=== PATIENT | female | born 1960 | race Caucasian/White ===

== ENCOUNTER 2017-12-26 09:00 | Emergency (ER) | payer BC ==
[2017-12-26] MEDS ORDERED: Sodium Chloride 0.9% 10 ML Syringe FLUSH PRN (09:45)
[2017-12-26] MEDS ORDERED: Ondansetron 4 MG/2 ML SDV IVPUSH ONE (09:46)
[2017-12-26] MEDS ORDERED: Acetaminophen 325 MG Tab PO ONE (09:46)
[2017-12-26] MEDS ORDERED: Ketorolac 30 MG/ML SDV IVPUSH SCH (10:00)
--- NOTE | 2017-12-26 10:13 | CT ---
Head CT Technique: Multiple axial sections through the brain were obtained. Intravenous contrast was not utilized. Comparison: No previous intracranial imaging. Findings: Ventricles along with basal cisterns and sulci over the convexities are within normal limits for the patient's age. No abnormal parenchymal densities are seen. No evidence of intracranial hemorrhage. No midline shift or mass effect is seen. Bone window settings were reviewed which shows the visualized sinuses to appear clear. No acute calvarial abnormality is seen. Impression: 1. Nothing acute is seen on noncontrast head CT study. Diagnostic code #1
--- NOTE | 2017-12-26 10:23 | EDM.PDOC ---
ED HPI GENERAL MEDICAL PROBLEM - General Chief Complaint: Head Injury Stated Complaint: CONCUSSION FOLLOW-UP Time Seen by Provider: 12/26/17 09:34 Source of Information: Reports: Patient, RN Notes Reviewed - History of Present Illness INITIAL COMMENTS - FREE TEXT/NARRATIVE: 57-year-old lady and fell striking the back of her head days ago moving furniture. Is going down some steps at that time. She states her knee gave out and she fell backwards and hit her head hard against a hard concrete step. As no LOC but she felt that she was "dazed briefly. She has had quite severe headache since the injury. She was seen at the walk-in clinic 2 days ago treated with 2 or 3 meds which made her drowsy, helped her rest and sleep after the meds have worn off she has continued with moderately severe generalized headache. Was had some nausea but no vomiting. Those dizzy in a nonspecific way. Like her vision is blurry and she feels like her brain is "foggy". No numbness tingling or weakness. No speech difficulty. - Related Data Allergies Allergy/AdvReac Type Severity Reaction Status Date / Time Penicillins Allergy Hives Verified 12/26/17 09:05 Home Meds: Home Meds Amoxicillin 1 cap PO TID 12/26/17 [History] Benzonatate 1 cap PO TID PRN 12/26/17 [History] Divalproex Sodium 2 tab PO BEDTIME 12/26/17 [History] Doxycycline [Vibramycin] 1 tab PO DAILY 12/26/17 [History] Hydrocodone/Acetaminophen [Hydrocodon-Acetaminophen 5-325] 1 - 2 tab PO Q4HR PRN 12/26/17 [History] Meloxicam [Mobic] 1 tab PO DAILY 12/26/17 [History] Ondansetron [Zofran ODT] 1 tab SL TID PRN 12/26/17 [History] Ondansetron [Zofran ODT] 4 mg PO Q8HR PRN #10 tab.dis 12/26/17 [Rx] Prochlorperazine [Compazine] 1 - 2 tab PO TID PRN 12/26/17 [History] buPROPion [Wellbutrin SR] 2 tab PO DAILY 12/26/17 [History] Past Medical History Gastrointestinal History: Reports: GERD, Irritable Bowel Syndrome, Other (See Below) Other Gastrointestinal History: Colitis 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 Musculoskeletal History: Reports: Arthritis, Osteoarthritis Neurological History: Reports: Concussion, Migraines Psychiatric History: Reports: Depression - Past Surgical History HEENT Surgical History: Reports: Naso-Sinus Surgery, Tonsillectomy GI Surgical History: Reports: Bariatric Procedure, Cholecystectomy Musculoskeletal Surgical History: Reports: Arthroscopic Knee, Arthroscopic Procedure Other Musculoskeletal Surgeries/Procedures:: Bilateral ACL Social & Family History - Tobacco Use Smoking Status *Q: Current Every Day Smoker Years of Tobacco use: 30 Packs/Tins Daily: 0.5 Used Tobacco, but Quit: No Second Hand Smoke Exposure: No - Caffeine Use Caffeine Use: Reports: Coffee - Recreational Drug Use Recreational Drug Use: No ED ROS GENERAL - Review of Systems Review Of Systems: See Below Constitutional: Denies: Fever, Chills, Diaphoresis HEENT: Denies: Sinus Problem, Throat Pain Respiratory: Denies: Shortness of Breath Cardiovascular: Denies: Chest Pain GI/Abdominal: Reports: Decreased Appetite, Nausea. Denies: Abdominal Pain, Diarrhea, Vomiting Musculoskeletal: Reports: Neck Pain (Minimal soreness posterior neck). Denies: Arm Pain, Back Pain, Leg Pain, Joint Pain Skin: Reports: No Symptoms Neurological: Reports: Dizziness, Headache. Denies: Numbness, Tingling, Trouble Speaking, Difficulty Walking, Weakness ED EXAM, HEAD INJURY - Physical Exam Exam: See Below General Appearance: Alert, Moderate Distress Head: Atraumatic, Other Eyes: Bilateral Eye: PERRL Ears: Normal External Exam, Normal Canal Nose: Normal Inspection Throat/Mouth: Normal Inspection Neck: Non-Tender Respiratory: No Respiratory Distress, Lungs Clear, Normal Breath Sounds Cardiovascular: Regular Rate, Rhythm GI/Abdominal Exam: Soft, Non-Tender Back Exam: Normal Inspection Extremities: Normal Inspection, Normal Range of Motion. No: Leg Pain Neurologic: No Motor/Sensory Deficits, Normal Mood/Affect, Other (Finger-to- nose testing normal) Course - Vital Signs Last Recorded V/S: Last Vital Signs Temp 97.1 F 12/26/17 09:24 Pulse 78 12/26/17 09:24 Resp 20 12/26/17 09:24 BP 160/82 H 12/26/17 09:24 Pulse Ox 99 12/26/17 09:24 - Orders/Labs/Meds Orders: Active Orders 24 hr Category Date Time Status Peripheral IV Care [RC] . DIRECTED Care 12/26/17 09:46 Active Peripheral IV Insertion Adult [OM.PC] Stat Oth 12/26/17 09:45 Ordered Meds: Medications Discontinued Medications Generic Name Dose Route Start Last Admin Trade Name Freq PRN Reason Stop Dose Admin Acetaminophen 975 mg 12/26/17 09:46 12/26/17 10:17 Tylenol PO 12/26/17 09:47 975 mg NOW ONE Administration Ketorolac Tromethamine 30 mg 12/26/17 10:00 12/26/17 10:16 Toradol IVPUSH 30 mg ONETIME ROBERT Administration Ondansetron HCl 4 mg 12/26/17 09:46 12/26/17 10:16 Zofran IVPUSH 12/26/17 09:47 4 mg ONETIME ONE Administration Sodium Chloride 10 ml 12/26/17 09:45 12/26/17 10:20 Saline Flush FLUSH 10 ml ASDIRECTED PRN Administration Keep Vein Open Departure - Departure Time of Disposition: 10:54 Disposition: Home, Self-Care 01 Condition: Fair Clinical Impression: Concussion injury of brain Migraine headache Qualifiers: Migraine type: unspecified Status migrainosus presence: without status migrainosus Intractability: not intractable Qualified Code(s): G43.909 - Migraine, unspecified, not intractable, without status migrainosus - Discharge Information Prescriptions: Ondansetron [Zofran ODT] 4 mg PO Q8HR PRN #10 tab.dis PRN Reason: Nausea/Vomiting Instructions: Concussion, Adult, [id number], Migraine Headache Referrals: Toya Obregon MD [Primary Care Provider] - Forms: ED Department Discharge, ED Return to Work/School Form Additional Instructions: Rest, increase activity slowly as tolerated, Zofran if needed for further nausea or vomiting, you may take Tylenol 2-3 times daily if needed for further headache, you may continue to take Darvocet daily as previously prescribed. Follow-up clinic if not much better within 3-5 days as expected. - My Orders Last 24 Hours: My Active Orders 12/26/17 09:45 Peripheral IV Insertion Adult [OM.PC] Stat 12/26/17 09:46 Peripheral IV Care [RC] . DIRECTED - Assessment/Plan Last 24 Hours: My Active Orders 12/26/17 09:45 Peripheral IV Insertion Adult [OM.PC] Stat 12/26/17 09:46 Peripheral IV Care [RC] . DIRECTED
== END 2017-12-26 11:05 | disposition home or self-care (01) ==
LOC: JD.ED 09:00
DX: S06.0X0A Concussion without loss of consciousness, initial encounter (principal); G43.909 Migraine, unspecified, not intractable, without status migrainosus; F17.210 Nicotine dependence, cigarettes, uncomplicated; W10.9XXA Fall (on) (from) unspecified stairs and steps, initial encounter; Z88.0 Allergy status to penicillin; Z79.899 Other long term (current) drug therapy
CPT/HCPCS: 70450; 96374; 96375; 99284; A9270; J1885; J2405; J7050

== ENCOUNTER 2018-05-28 07:31 | Day surgery (SDC) | payer BC ==
[~2018-05-28 07:31] MED LIST: Lactated Ringers 1,000 ML IV SCH; Lidocaine 1%/Sod Bicarbonate in NS 8.4% 1 ML Syringe IDERM PRN; Sodium Chloride 0.9% 10 ML Syringe FLUSH PRN
--- NOTE | 2018-05-28 08:29 | PCM.PREANE ---
Preanesthetic Assessment - Anesthesia/Transfusion/Family Hx Anesthesia History: Prior Anesthesia Without Reaction Family History of Anesthesia Reaction: No Transfusion History: Prior Transfusion Without Reaction Intubation History: Unknown - Review of Systems General: No Symptoms Pulmonary: No Symptoms Cardiovascular: No Symptoms Gastrointestinal: Nausea (Chronic nausea, history of gastric bypass, GERD. Prefers to have a scopalamine patch for her procedure. ) Neurological: No Symptoms Other: Reports: None (Panic Disorder), Depression, Anxiety - Physical Assessment NPO Status Date: 05/27/17 NPO Status Time: 21:30 O2 Sat by Pulse Oximetry: 97 Respiratory Rate: 16 Vital Signs: Last Vital Signs Temp 36.7 C 05/28/18 07:45 Pulse 77 05/28/18 07:45 Resp 16 05/28/18 07:45 BP 159/77 H 05/28/18 07:45 Pulse Ox 97 05/28/18 07:45 Weight: 65.771 kg ASA Class: 2 Mental Status: Alert & Oriented x3 Airway Class: Mallampati = 1 Dentition: Reports: Normal Dentition Thyro-Mental Finger Breadths: 2 Mouth Opening Finger Breadths: 3 ROM/Head Extension: Full Lungs: Clear to Auscultation, Normal Respiratory Effort Cardiovascular: Regular Rate, Regular Rhythm - Allergies Allergies/Adverse Reactions: Allergies Allergy/AdvReac Type Severity Reaction Status Date / Time morphine Allergy Rash Verified 03/28/18 15:51 Penicillins Allergy Hives Verified 03/28/18 15:51 - Anesthesia Plan Pre-Op Medication Ordered: Other (Scopalamine Patch) - Acknowledgements Anesthesia Type Planned: MAC Pt an Appropriate Candidate for the Planned Anesthesia: Yes Alternatives and Risks of Anesthesia Discussed w Pt/Guardian: Yes Pt/Guardian Understands and Agrees with Anesthesia Plan: Yes PreAnesthesia Questionnaire HEENT History: Reports: Allergic Rhinitis, Impaired Vision Cardiovascular History: Reports: None Respiratory History: Reports: Asthma Gastrointestinal History: Reports: GERD, Irritable Bowel Syndrome, Other (See Below) Other Gastrointestinal History: Colitis Genitourinary History: Reports: None 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 Other OB/BYN History: Hysterectomy Musculoskeletal History: Reports: Arthritis, Osteoarthritis Neurological History: Reports: Concussion, Migraines Psychiatric History: Reports: Depression Endocrine/Metabolic History: Reports: None Hematologic History: Reports: None Immunologic History: Reports: None Oncologic (Cancer) History: Reports: None Dermatologic History: Reports: None - Past Surgical History Head Surgeries/Procedures: Reports: None HEENT Surgical History: Reports: Naso-Sinus Surgery, Tonsillectomy Cardiovascular Surgical History: Reports: None Respiratory Surgical History: Reports: None GI Surgical History: Reports: Bariatric Procedure, Cholecystectomy, Colonoscopy Female Surgical History: Reports: Hysterectomy, Oophorectomy Endocrine Surgical History: Reports: None Musculoskeletal Surgical History: Reports: Arthroscopic Knee, Arthroscopic Procedure Other Musculoskeletal Surgeries/Procedures:: Bilateral ACL Dermatological Surgical History: Reports: None - HOME MEDS Home Medications: Home Meds Divalproex Sodium 1,000 mg PO DAILY 12/26/17 [History] Doxycycline [Vibramycin] 100 mg PO DAILY 12/26/17 [History] buPROPion [Wellbutrin SR] 150 mg PO DAILY 12/26/17 [History] Cholecalciferol (Vitamin D3) [Vitamin D3] 5,000 unit PO DAILY 03/28/18 [History] Dicyclomine [Bentyl] 20 mg PO QID 03/28/18 [History] Lactobacillus Combination No.4 [Probiotic] 1 cap PO DAILY 03/28/18 [History] Loratadine/Pseudoephedrine [Claritin-D 12 Hour] 1 tab PO DAILY 03/28/18 [History ] Magnesium 500 mg PO DAILY 03/28/18 [History] Multivitamin [Zoo Chews] 1 tab PO DAILY 03/28/18 [History] Bisacodyl [Dulcolax] 5 mg PO DAILY PRN tablet 03/31/18 [Rx] Cyclobenzaprine [Flexeril] 10 mg PO TID PRN #40 tablet 03/31/18 [Rx] Docusate Sodium [Colace] 100 mg PO BID cap 03/31/18 [Rx] Omeprazole 20 mg PO BEDTIME 03/31/18 [History] Acetaminophen/HYDROcodone [[place] 325-5 MG] 1 - 2 tab PO Q6H PRN #40 tablet 05/28 [Rx] FLUoxetine HCl [Prozac] 20 mg PO DAILY 05/28/18 [History] Meloxicam 15 mg PO DAILY 05/28/18 [History] buPROPion [buPROPion XL] 300 mg PO DAILY 05/28/18 [History] - CURRENT (IN HOUSE) MEDS Current Meds: Current Medications Lactated Ringer's (Ringers, Lactated) 1,000 mls @ 125 mls/hr IV ASDIRECTED ROBERT Stop: 05/28/18 23:00 Lidocaine/Sodium Bicarbonate (Buffered Lidocaine 1% In Ns 8.4%) 0.25 ml IDERM ONETIME PRN PRN Reason: Prior to IV Start Stop: 05/28/18 18:00 Sodium Chloride (Saline Flush) 10 ml FLUSH ASDIRECTED PRN PRN Reason: Keep Vein Open Stop: 05/28/18 18:00
[2018-05-28] MEDS ORDERED: fentaNYL 100 MCG/2 ML SDV ONE (08:42)
[2018-05-28] MEDS ORDERED: Propofol 200 MG/20 ML SDV ONE (08:42)
[2018-05-28] MEDS ORDERED: Lidocaine 1% 4 ML ONE (08:42)
[2018-05-28] MEDS ORDERED: Ondansetron 4 MG/2 ML SDV ONE (08:42)
[2018-05-28] MEDS ORDERED: Midazolam 1 MG/ML 2 ML SDV ONE (08:42)
[2018-05-28] MEDS ORDERED: Ketamine 500 mg/10 ML MDV ONE (08:43)
[2018-05-28] MEDS ORDERED: HYDROmorphone 0.5 MG/0.5 ML Syringe ONE (08:43)
[2018-05-28] MEDS ORDERED: Scopolamine 1.5 MG Transdermal Patch TOP ONE (08:45)
[2018-05-28] MEDS ORDERED: Dexamethasone 4 MG/ML 5 ML MDV ONE (08:47)
[2018-05-28] MEDS ORDERED: Acetaminophen/HYDROcodone 325-5 MG Tab PO SCH (10:28)
--- NOTE | 2018-05-28 11:19 | PCM48HPAN ---
Post Anesthesia Note - EVALUATION WITHIN 48HRS OF ANESTHETIC Vital Signs in Normal Range: Yes Patient Participated in Evaluation: Yes Respiratory Function Stable: Yes Airway Patent: Yes Cardiovascular Function Stable: Yes Hydration Status Stable: Yes Pain Control Satisfactory: Yes Nausea and Vomiting Control Satisfactory: Yes Mental Status Recovered: Yes
--- NOTE | 2018-06-02 07:00 | PCM.OPNOTE ---
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
--- NOTE | 2018-06-02 08:05 | OR ---
DATE OF OPERATION: 05/28/2018 SURGEON: Diogo Patel MD OPERATION PERFORMED: Left total knee manipulation under anesthesia. PREOPERATIVE DIAGNOSIS: Left total knee arthrofibrosis. POSTOPERATIVE DIAGNOSIS: Left total knee arthrofibrosis. ANESTHESIA: MAC sedation. ANESTHESIA PROVIDER: Wei Fried. ROOM SERVER: None. ESTIMATED BLOOD LOSS: Not applicable. COMPLICATIONS: None. CONDITION: Stable. DESCRIPTION OF PROCEDURE: The patient was identified in the preoperative holding area. Proper site was marked and identified by the surgeon. The patient was taken back to the operating theater, where after adequate anesthesia, the patient's left lower extremity had pre-manipulation motion measured. Range of motion was 2 to about 90 degrees. At this time, manipulation was done. There was noted to be significant arthrofibrosis, and the patient had 0 to 130 degrees of flexion, was stable throughout range of motion, and there was no instability noted. At this time, the patient was sent to the PACU in a stable condition and will begin physical therapy tomorrow. MMODAL /[id number]
== END 2018-05-28 11:30 | disposition home or self-care (01) ==
LOC: JD.SDS 07:31
PROVIDERS: ATTEND Orthopaedic Surgery
DX: M24.662 Ankylosis, left knee (principal); J30.9 Allergic rhinitis, unspecified; F32.9 Major depressive disorder, single episode, unspecified; K21.9 Gastro-esophageal reflux disease without esophagitis; K58.9 Irritable bowel syndrome, unspecified; G43.909 Migraine, unspecified, not intractable, without status migrainosus; M06.9 Rheumatoid arthritis, unspecified; F17.210 Nicotine dependence, cigarettes, uncomplicated; Z88.0 Allergy status to penicillin; Z88.5 Allergy status to narcotic agent; Z79.899 Other long term (current) drug therapy; Z79.2 Long term (current) use of antibiotics
CPT/HCPCS: 27570; A9270; J1100; J1170; J2250; J2405; J2704; J3010; J7120; 01380; J2001

== ENCOUNTER 2018-08-04 07:30 | Inpatient (IN) | payer BC ==
[~2018-08-04 07:30] MED LIST changes: +Acetaminophen 325 MG Tab PO SCH; +Morphine 2 MG/ML Syringe IVPUSH PRN; +Pregabalin 25 MG Cap PO SCH; +oxyCODONE ER 10 MG TAB.ER PO SCH
[2018-08-04] MEDS ORDERED: Ropivacaine 0.5% 5 MG/ML 30 ML SDV ONE (07:53)
[2018-08-04] MEDS ORDERED: EPINEPHrine 1 MG/ML SDV ONE (07:53)
[2018-08-04] MEDS ORDERED: ceFAZolin 1 GM Vial ONE ×2 (09:59→10:57)
[2018-08-04] MEDS ORDERED: Vancomycin 1 GM SDV ONE (09:59)
[2018-08-04] MEDS ORDERED: Bupivacaine 0.25% 30 ML SDV ONE (10:00)
[2018-08-04] MEDS ORDERED: Iodine/Sodium Iodide 2% Tincture 30 ML Bottle ONE (10:00)
[2018-08-04] MEDS ORDERED: Propofol 200 MG/20 ML SDV ONE (10:55)
[2018-08-04] MEDS ORDERED: Midazolam 1 MG/ML 2 ML SDV ONE (10:57)
[2018-08-04] MEDS ORDERED: fentaNYL 100 MCG/2 ML SDV ONE (10:57)
--- NOTE | 2018-08-04 10:58 | PCM.PREANE ---
Preanesthetic Assessment - Anesthesia/Transfusion/Family Hx Anesthesia History: Prior Anesthesia Reaction Type of Anesthesia Reaction: Excessive Nausea/Vomiting Family History of Anesthesia Reaction: No Transfusion History: No Prior Transfusion(s) Intubation History: Unknown - Review of Systems General: No Symptoms Pulmonary: No Symptoms (Smoker 0.5 ppd for 20 years, denies cough. ) Cardiovascular: No Symptoms (Negative stress test 03/06/2018. Inferior Q waves noted on EKG. Denies Chest Pain. ) Gastrointestinal: No Symptoms (Gastric Bypass Surgery) Neurological: Headache (Migraines) Other: Reports: Sinus Problem (Allergic Rhinitis), Depression - Physical Assessment NPO Status Date: 08/04/18 NPO Status Time: 00:00 O2 Sat by Pulse Oximetry: 97 Respiratory Rate: 16 Vital Signs: Last Vital Signs Temp 36.3 C 08/04/18 09:55 Pulse 66 08/04/18 09:55 Resp 16 08/04/18 09:55 BP 133/74 08/04/18 09:55 Pulse Ox 97 08/04/18 09:55 Height: 1.6 m Weight: 68.946 kg ASA Class: 2 Mental Status: Alert & Oriented x3 Airway Class: Mallampati = 1 Dentition: Reports: Normal Dentition Thyro-Mental Finger Breadths: 2 Mouth Opening Finger Breadths: 3 ROM/Head Extension: Full Lungs: Clear to Auscultation, Normal Respiratory Effort, Decreased Breath Sounds Cardiovascular: Regular Rate, Regular Rhythm - Allergies Allergies/Adverse Reactions: Allergies Allergy/AdvReac Type Severity Reaction Status Date / Time morphine Allergy Rash Verified 08/04/18 10:18 Penicillins Allergy Hives Verified 08/04/18 10:18 - Anesthesia Plan Pre-Op Medication Ordered: Other (Scopalamine Patch) - Acknowledgements Anesthesia Type Planned: Spinal, Regional Block Pt an Appropriate Candidate for the Planned Anesthesia: Yes Alternatives and Risks of Anesthesia Discussed w Pt/Guardian: Yes Pt/Guardian Understands and Agrees with Anesthesia Plan: Yes PreAnesthesia Questionnaire HEENT History: Reports: Allergic Rhinitis, Impaired Vision Cardiovascular History: Reports: None, Other (See Below) Other Cardiovascular History: Abnormal EKG Respiratory History: Reports: Asthma Gastrointestinal History: Reports: GERD, Irritable Bowel Syndrome, Other (See Below) Other Gastrointestinal History: Colitis Genitourinary History: Reports: None 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 Musculoskeletal History: Reports: Arthritis, Osteoarthritis Neurological History: Reports: Concussion, Migraines Psychiatric History: Reports: Depression Endocrine/Metabolic History: Reports: None Hematologic History: Reports: None Immunologic History: Reports: None Oncologic (Cancer) History: Reports: None Dermatologic History: Other Dermatologic History: Acne, perirectal abscess - Past Surgical History Head Surgeries/Procedures: Reports: None HEENT Surgical History: Reports: Naso-Sinus Surgery, Tonsillectomy Cardiovascular Surgical History: Reports: None Respiratory Surgical History: Reports: None GI Surgical History: Reports: Bariatric Procedure, Cholecystectomy, Colonoscopy Female Surgical History: Reports: Hysterectomy, Oophorectomy Male Surgical History: Endocrine Surgical History: Reports: None Neurological Surgical History: Reports: None Musculoskeletal Surgical History: Reports: Arthroscopic Knee, Arthroscopic Procedure, Knee Replacement Other Musculoskeletal Surgeries/Procedures:: Bilateral ACL, Left total knee replacement Oncologic Surgical History: Reports: None Dermatological Surgical History: Reports: Other (See Below) - SUBSTANCE USE Smoking Status *Q: Current Every Day Smoker Tobacco Use Within Last Twelve Months: Cigarettes Recreational Drug Use History: No - HOME MEDS Home Medications: Home Meds Divalproex Sodium 500 mg PO DAILY 12/26/17 [History] Doxycycline [Vibramycin] 100 mg PO DAILY 12/26/17 [History] buPROPion [Wellbutrin SR] 150 mg PO DAILY 12/26/17 [History] Cholecalciferol (Vitamin D3) [Vitamin D3] 5,000 unit PO DAILY 03/28/18 [History] Dicyclomine [Bentyl] 20 mg PO QID PRN 03/28/18 [History] Loratadine/Pseudoephedrine [Claritin-D 12 Hour] 1 tab PO DAILY 03/28/18 [History ] Magnesium 500 mg PO DAILY 03/28/18 [History] Multivitamin [Zoo Chews] 1 tab PO DAILY 03/28/18 [History] Cyclobenzaprine [Flexeril] 10 mg PO TID PRN #40 tablet 03/31/18 [Rx] Omeprazole 20 mg PO DAILY 03/31/18 [History] FLUoxetine HCl [Prozac] 20 mg PO DAILY 05/28/18 [History] Meloxicam 15 mg PO DAILY 05/28/18 [History] buPROPion [buPROPion XL] 300 mg PO DAILY 05/28/18 [History] Ondansetron [Zofran] 4 mg PO Q8H PRN 08/01/18 [History] - CURRENT (IN HOUSE) MEDS Current Meds: Current Medications Acetaminophen (Tylenol) 975 mg PO ONETIME [facility] Stop: 08/04/18 12:00 Last Admin: 08/04/18 10:27 Dose: 975 mg Bisacodyl (Dulcolax) 5 mg PO DAILY PRN PRN Reason: Constipation Morphine Sulfate 8 mg/Epinephrine HCl 0.3 mg/Cefuroxime Sodium 750 mg/Ketorolac Tromethamine 30 mg/Sodium Chloride 27.9 ml 0 mg .XX ONETIME ONE Stop: 08/04/18 12:01 Cyclobenzaprine HCl (Flexeril) 10 mg PO TID PRN PRN Reason: Spasms Docusate Sodium (Colace) 100 mg PO BID [facility] Lactated Ringer's (Ringers, Lactated) 1,000 mls @ 125 mls/hr IV ASDIRECTED [facility] Stop: 08/04/18 23:00 Last Admin: 08/04/18 10:10 Dose: 125 mls/hr Cefazolin Sodium/Dextrose 2 gm (/ Premix) 50 mls @ 100 mls/hr IV Q8H [facility] Stop: 08/04/18 23:14 Ketorolac Tromethamine (Toradol) 15 mg IVPUSH Q6H PRN PRN Reason: Pain Lidocaine/Sodium Bicarbonate (Buffered Lidocaine 1% In Ns 8.4%) 0.25 ml IDERM ONETIME PRN PRN Reason: Prior to IV Start Stop: 08/04/18 18:00 Last Admin: 08/04/18 10:10 Dose: 0.25 ml Magnesium Hydroxide (Milk Of Magnesia) 30 ml PO BID PRN PRN Reason: Constipation Morphine Sulfate (Morphine) 2 mg IVPUSH Q2H PRN PRN Reason: Breakthrough Pain Naloxone HCl (Narcan) 0.1 mg IVPUSH Q5M PRN PRN Reason: Oversedation Ondansetron HCl (Zofran) 4 mg IVPUSH Q6H PRN PRN Reason: Nausea/Vomiting Oxycodone HCl (Oxycontin) 10 mg PO ONETIME [facility] Stop: 08/04/18 12:00 Last Admin: 08/04/18 10:27 Dose: 10 mg Oxycodone/Acetaminophen (Percocet 325-5 Mg) 1 - 2 tab PO Q4H PRN PRN Reason: Pain Pregabalin (Lyrica) 50 mg PO ONETIME [facility] Stop: 08/04/18 12:00 Last Admin: 08/04/18 10:27 Dose: 50 mg Rivaroxaban (Xarelto) 10 mg PO DAILY [facility] Scopolamine (Transderm-Scop) 1.5 mg TRDERM ONETIME [facility] Last Admin: 08/04/18 10:27 Dose: 1.5 mg Senna (Senna) 8.6 mg PO BID PRN PRN Reason: Constipation Sodium Chloride (Saline Flush) 10 ml FLUSH ASDIRECTED PRN PRN Reason: Keep Vein Open Stop: 08/04/18 18:00 Discontinued Medications Bupivacaine HCl (Marcaine 0.25%) Confirm Administered Dose 30 ml .ROUTE .STK- MED ONE Stop: 08/04/18 10:01 Cefazolin Sodium (Ancef) Confirm Administered Dose 2 gm .ROUTE .STK-MED ONE Stop: 08/04/18 10:00 Epinephrine HCl (Adrenalin) Confirm Administered Dose 1 mg .ROUTE .STK-MED ONE Stop: 08/04/18 07:54 Iodine (Iodine 2% Mild Tincture) Confirm Administered Dose 30 ml .ROUTE .STK- MED ONE Stop: 08/04/18 10:01 Ropivacaine (Naropin 0.5%) Confirm Administered Dose 30 ml .ROUTE .STK-MED ONE Stop: 08/04/18 07:54 Tranexamic Acid (Cyklokapron) Confirm Administered Dose 1,000 mg .ROUTE .STK- MED ONE Stop: 08/04/18 10:00 Vancomycin HCl (Vancomycin) Confirm Administered Dose 1 gm .ROUTE .STK-MED ONE Stop: 08/04/18 10:00
[2018-08-04] MEDS ORDERED: Scopolamine 1.5 MG Transdermal Patch TRDERM SCH (11:00)
[2018-08-04] MEDS ORDERED: Naloxone 0.4 MG/ML SDV IVPUSH PRN (13:00)
[2018-08-04] MEDS ORDERED: Bisacodyl 5 MG Tab PO PRN (13:00)
[2018-08-04] MEDS ORDERED: Sennosides 8.6 MG Tab PO PRN (13:00)
[2018-08-04] MEDS ORDERED: Ondansetron 4 MG/2 ML SDV IVPUSH PRN ×2 (13:00→14:03)
[2018-08-04] MEDS ORDERED: Magnesium Hydroxide 400 MG/5 ML Susp 30 ML Cup PO PRN (13:00)
[2018-08-04] MEDS ORDERED: Lactated Ringers 1,000 ML ONE (13:09)
[2018-08-04] MEDS: Morphine 8 MG, EPINEPHrine 0.3 MG, Cefuroxime 750 MG, Ketorolac 30 MG, Sodium Chloride ... ONE ×10 (13:26→15:29)
[2018-08-04] MEDS ORDERED: diphenhydrAMINE 50 MG/ML SDV IVPUSH PRN (14:03)
[2018-08-04] MEDS ORDERED: Metoclopramide 10 MG/2 ML SDV IVPUSH PRN (14:03)
[2018-08-04] MEDS ORDERED: fentaNYL 100 MCG/2 ML SDV IVPUSH PRN (14:03)
--- NOTE | 2018-08-04 14:03 | PCM.POSTAN ---
POST ANESTHESIA ASSESSMENT - MENTAL STATUS Mental Status: Alert, Oriented - VITAL SIGNS Pulse Rate: 91 SaO2: 99 Resp Rate: 16 Blood Pressure: 121/65 Temperature: 36.3 C - RESPIRATORY Respiratory Status: Respiratory Rate WNL, Airway Patent, O2 Saturation Stable, Supplemental Oxygen - CARDIOVASCULAR CV Status: Pulse Rate WNL, Blood Pressure Stable - GASTROINTESTINAL GI Status: No Symptoms - PAIN Pain Score: 0 - POST OP HYDRATION Hydration Status: Adequate & Stable
--- NOTE | 2018-08-04 14:29 | PCM.SN ---
- Free Text/Narrative Note: Right selective femoral nerve block at the adductor canal for post-procedure pain control under US guidance requested by Dr. Patel. Time Out: 1404 Start: 1408 End: 1411 Chart reviewed. Consent signed. Questions answered. Appropriate monitors applied. Time out performed. Right mid-shaft femur identified with ultrasound, scanning medially of femur, the femoral artery in the adductor canal visualized , and the femoral nerve located laterally to the artery. The skin was prepped lateral to the ultrasound probe with chlorahexadine times two. The 21ga 4 insulated block needle was inserted under direct ultrasound guidance into the adductor canal. 25mL of 0.5% ropivacaine with 1:200,000 epinephrine was injected circumferentially around the nerve with intermittent negative aspiration noted. Patient tolerated the procedure well. Sterile technique noted along with sterile gloves, mask, and sterile probe cover. See picture on progress note and vital signs on nurses notes. Block completed in PACU. Miguel A Navarro CRNA
--- NOTE | 2018-08-04 14:47 | CR ---
Right knee: AP and lateral views of the right knee were obtained. Comparison: No prior right knee exam is available. Knee prosthesis is seen. Prosthetic components are alignment. Soft tissue air is noted from the surgical procedure. Underlying bony structures are intact. Impression: 1. Satisfactory postop radiographic appearance of recently placed right knee prosthesis. Diagnostic code #1
[2018-08-04] MEDS ORDERED: Non-Formulary Medication 1 Each (Ondansetron 4 MG) PO PRN (15:08)
[2018-08-04] MEDS ORDERED: HYDROmorphone 0.5 MG/0.5 ML Syringe IVPUSH PRN (15:51)
[2018-08-04] MEDS: Nicotine 21 MG/24 Hr Patch TRDERM SCH (17:31)
[2018-08-04] MEDS: Acetaminophen/oxyCODONE 325-5 MG Tab PO PRN (17:31)
[2018-08-04] MEDS: ceFAZolin 2 GM in Premix Bag 1 BAG IV SCH (17:31)
[2018-08-04] MEDS: HYDROmorphone 1 MG/ML Syringe IVPUSH PRN (20:13)
[2018-08-04] MEDS: Ketorolac 15 MG/ML SDV IVPUSH PRN (20:16)
[2018-08-04] MEDS: Cyclobenzaprine 10 MG Tab PO PRN (20:20)
[2018-08-04] MEDS: Docusate Sodium 100 MG Cap PO SCH (20:20)
[2018-08-05] MEDS: ceFAZolin 2 GM in Premix Bag 1 BAG IV SCH ×2 (01:53→11:10)
[2018-08-05] MEDS: Acetaminophen/oxyCODONE 325-5 MG Tab PO PRN ×5 (03:57→22:38)
[2018-08-05] MEDS: Pantoprazole 40 MG Tab.CR PO SCH (07:07)
[2018-08-05] MEDS: Cyclobenzaprine 10 MG Tab PO PRN ×2 (07:10→20:23)
[2018-08-05] MEDS: Ketorolac 15 MG/ML SDV IVPUSH PRN (07:11)
[2018-08-05] MEDS ORDERED: Sodium Chloride 0.9% 500 ML IV ONE (07:56)
--- NOTE | 2018-08-05 08:44 | PCM48HPAN ---
Post Anesthesia Note - EVALUATION WITHIN 48HRS OF ANESTHETIC Vital Signs in Normal Range: Yes Patient Participated in Evaluation: Yes Respiratory Function Stable: Yes Airway Patent: Yes Cardiovascular Function Stable: Yes Hydration Status Stable: Yes Pain Control Satisfactory: Yes Nausea and Vomiting Control Satisfactory: Yes Mental Status Recovered: Yes - COMMENTS/OBSERVATIONS Free Text/Narrative:: Upon post anesthesia POD#1, patient c/o numbness below right knee. Patient states when standing she does not have any sensation. Patient also denies having any knee pain at this point. Last night upon ambulation, patient fell unto right hip/side area and notes some tenderness to that area. Patient verbalizes concerns r/t potential injury to new knee implant. Verbal reassurance given and patient instructed that anesthesia will continue to monitor. Thank you, Sharmaine Zuñiga CRNA
[2018-08-05] MEDS ORDERED: buPROPion 150 MG Tab.SR PO SCH (09:00)
[2018-08-05] MEDS ORDERED: Divalproex Sodium Delayed-Release 500 MG Tab.CR PO SCH (09:00)
[2018-08-05] MEDS ORDERED: Rivaroxaban 10 MG Tab PO SCH (09:00)
[2018-08-05] MEDS: Cholecalciferol (Vitamin D3) 5,000 UNIT Tab PO SCH (09:01)
[2018-08-05] MEDS: FLUoxetine 20 MG Cap PO SCH (09:01)
[2018-08-05] MEDS: Docusate Sodium 100 MG Cap PO SCH ×2 (09:01→20:24)
--- NOTE | 2018-08-05 09:01 | CR ---
Right femur: AP and lateral views of the right femur were obtained. Fracture is identified within the mid to distal shaft of the femur. There is displacement by shaft width as well as mild foreshortening and angulation. Fracture extends distally slightly above a knee prosthesis. No additional abnormality is appreciated. Impression: 1. Femur fracture as noted above. 2. Incidental knee prosthesis. Diagnostic code #3
[2018-08-05] MEDS: Magnesium Oxide 400 MG Tab PO SCH (09:02)
[2018-08-05] MEDS: Doxycycline 100 MG Cap PO SCH (09:03)
[2018-08-05] MEDS: buPROPion 150 MG Tab.ER PO SCH (09:03)
[2018-08-05] MEDS: Multivitamins,Therapeutic Tab PO SCH (09:03)
[2018-08-05] MEDS: PSEUDOEPHEDRINE PO SCH (09:06)
[2018-08-05] MEDS: LORATADINE PO SCH (09:06)
[2018-08-05] MEDS: Nicotine 21 MG/24 Hr Patch TRDERM SCH (09:06)
--- NOTE | 2018-08-05 09:14 | PCM.CONS ---
H&P History of Present Illness - General Date of Service: 08/05/18 Admit Problem/Dx: Admission Diagnosis/Problem Admission Diagnosis/Problem Osteoarthritis of knee Source of Information: Patient, Old Records, Provider, RN, RN Notes Reviewed History Limitations: Reports: No Limitations - History of Present Illness Initial Comments - Free Text/Narative: Adelaida Garner is a 57 yo female patient of Dr. Patel who is post-operative day 1 of right TKA. Unfortunately last night Adelaida had a fall and suffered a right femur fracture just above her right knee arthroplasty. Hospital medicine was consulted for post-operative medical care due to hyperkalemia and worsening renal function. At this time she is resting in bed. Pain is controlled until she moves her right leg. She denies any chest pain, shortness of breath, palpitations, nausea, or vomiting. She carries a history of: Acne, OA, Depression, Anxiety, GERD, IBS, Migraines, RA, Gastric Bypass, Abnormal EKG with Q waves in inferior leads, Colitis. She is a current daily smoker and nicotine patches are ordered. She is a full code. Her primary care provider is Cleo Soto PA-C. Right Knee Pain Score (Numeric/FACES): 0 - Related Data Allergies/Adverse Reactions: Allergies Allergy/AdvReac Type Severity Reaction Status Date / Time morphine Allergy Rash Verified 08/04/18 15:24 Penicillins Allergy Hives Verified 08/04/18 15:24 Home Medications: Home Meds Doxycycline [Vibramycin] 100 mg PO DAILY 12/26/17 [History] Cholecalciferol (Vitamin D3) [Vitamin D3] 5,000 unit PO DAILY 03/28/18 [History] Dicyclomine [Bentyl] 20 mg PO QID PRN 03/28/18 [History] Loratadine/Pseudoephedrine [Claritin-D 12 Hour] 1 tab PO DAILY 03/28/18 [History ] Magnesium 500 mg PO DAILY 03/28/18 [History] Multivitamin [Zoo Chews] 1 tab PO DAILY 03/28/18 [History] Omeprazole 20 mg PO DAILY 03/31/18 [History] FLUoxetine HCl [Prozac] 20 mg PO DAILY 05/28/18 [History] buPROPion [buPROPion XL] 450 mg PO DAILY 05/28/18 [History] Ondansetron [Zofran] 4 mg PO Q8H PRN 08/01/18 [History] Acetaminophen/oxyCODONE [Percocet 325-5 MG] 1 - 2 tab PO Q6H PRN #60 tablet [Rx] Bisacodyl [Dulcolax] 5 mg PO DAILY PRN tablet 08/04/18 [Rx] Cyclobenzaprine [Flexeril] 10 mg PO Q12H PRN #30 tablet 08/04/18 [Rx] Docusate Sodium [Colace] 100 mg PO BID cap 08/04/18 [Rx] Magnesium Hydroxide [Milk of Magnesia] 30 ml PO BID PRN cup 08/04/18 [Rx] Rivaroxaban [Xarelto] 10 mg PO DAILY #30 tablet 08/04/18 [Rx] Sennosides [Senna] 8.6 mg PO BID PRN tablet 08/04/18 [Rx] Divalproex Sodium [Depakote ER] 1,000 mg PO DAILY 08/05/18 [History] Past Medical History HEENT History: Reports: Allergic Rhinitis, Impaired Vision Cardiovascular History: Reports: None, Other (See Below) Other Cardiovascular History: Abnormal EKG Respiratory History: Reports: Asthma Gastrointestinal History: Reports: GERD, Irritable Bowel Syndrome, Other (See Below) Other Gastrointestinal History: Colitis Genitourinary History: Reports: None RESIDENT CARE DIRECTOR History: Reports: None Musculoskeletal History: Reports: Arthritis, Osteoarthritis Neurological History: Reports: Concussion, Migraines Psychiatric History: Reports: Depression Endocrine/Metabolic History: Reports: None Hematologic History: Reports: None Immunologic History: Reports: None Oncologic (Cancer) History: Reports: None Dermatologic History: Other Dermatologic History: Acne, perirectal abscess - Past Surgical History Head Surgeries/Procedures: Reports: None HEENT Surgical History: Reports: Naso-Sinus Surgery, Tonsillectomy Cardiovascular Surgical History: Reports: None Respiratory Surgical History: Reports: None Other Respiratory Surgeries/Procedures: Current smoker GI Surgical History: Reports: Bariatric Procedure, Cholecystectomy, Colonoscopy Female Surgical History: Reports: Hysterectomy, Oophorectomy Endocrine Surgical History: Reports: None Neurological Surgical History: Reports: None Musculoskeletal Surgical History: Reports: Arthroscopic Knee, Arthroscopic Procedure, Knee Replacement Other Musculoskeletal Surgeries/Procedures:: Bilateral ACL, Left total knee replacement Oncologic Surgical History: Reports: None Dermatological Surgical History: Reports: Other (See Below) Social & Family History - Family History Family Medical History: Noncontributory - Tobacco Use Smoking Status *Q: Current Every Day Smoker Years of Tobacco use: 25 Packs/Tins Daily: 0.5 - Caffeine Use Caffeine Use: Reports: Coffee - Recreational Drug Use Recreational Drug Use: No Drug Use in Last 12 Months: No H&P Review of Systems - Review of Systems: Review Of Systems: See Below General: Reports: No Symptoms. Denies: Fever, Chills, Malaise, Weakness, Fatigue HEENT: Reports: No Symptoms. Denies: Headaches, Sore Throat Pulmonary: Reports: No Symptoms. Denies: Shortness of Breath, Wheezing, Pleuritic Chest Pain, Cough, Sputum Cardiovascular: Reports: No Symptoms. Denies: Chest Pain, Palpitations, Dyspnea on Exertion, Edema Gastrointestinal: Reports: No Symptoms. Denies: Abdominal Pain, Constipation, Diarrhea, Nausea, Vomiting Genitourinary: Reports: No Symptoms. Denies: Pain Musculoskeletal: Reports: Leg Pain (right leg with movement ). Denies: Neck Pain, Shoulder Pain Skin: Reports: No Symptoms Psychiatric: Reports: No Symptoms. Denies: Confusion Neurological: Reports: No Symptoms Hematologic/Lymphatic: Reports: No Symptoms Immunologic: Reports: No Symptoms Exam - Exam Exam: See Below - Vital Signs Vital Signs: Last Vital Signs Temp 97.9 F 08/05/18 03:46 Pulse 69 08/05/18 07:27 Resp 14 08/05/18 07:27 BP 113/88 08/05/18 07:27 Pulse Ox 100 08/05/18 07:27 Weight: 160 lb 8 oz - Exam Quality Assessment: DVT Prophylaxis General: Alert, Oriented, Cooperative. No: Mild Distress HEENT: Conjunctiva Clear, EACs Clear, EOMI, Hearing Intact, Mucosa Moist & [place] , Posterior Pharynx Clear, PERRLA Neck: Supple, Trachea Midline Lungs: Clear to Auscultation, Normal Respiratory Effort Cardiovascular: Regular Rate, Regular Rhythm GI/Abdominal Exam: Normal Bowel Sounds, Soft, Non-Tender, No Organomegaly, No Distention (Female) Exam: Deferred Rectal (Female) Exam: Deferred Back Exam: Normal Inspection, Full Range of Motion, NT Extremities: No Pedal Edema, Normal Capillary Refill, Leg Pain, Limited Range of Motion, Other (Deformed right thigh, Dressing on right knee. Cooling pack in place. ) Peripheral Pulses: 2+: Radial (L), Radial (R), Dorsalis Pedis (L), Dorsalis Pedis (R) Skin: Warm, Dry, Intact Neurological: Cranial Nerves Intact (grossly ) Neuro Extensive - Mental Status: Alert, Oriented x3, Normal Mood/Affect, Normal Cognition - Patient Data Lab Results Last 24 hrs: Laboratory Results - last 24 hr 08/05/18 08/05/18 Range/Units 05:56 05:56 WBC 9.83 (3.98-10.04) K/mm3 RBC 3.72 L (3.98-5.22) M/mm3 Hgb 10.0 L (11.2-15.7) gm/L Hct 31.4 L (34.1-44.9) % MCV 84.4 (79.4-94.8) fl MCH 26.9 (25.6-32.2) pg MCHC 31.8 L (32.2-35.5) g/dl RDW Std Deviation 49.7 H (36.4-46.3) fL Plt Count 208 (182-369) K/mm3 MPV 11.6 (9.4-12.3) fl Sodium 136 (136-145) mEq/L Potassium 5.3 H (3.5-5.1) mEq/L Chloride 102 (98-107) mEq/L Carbon Dioxide 25 (21-32) mEq/L Anion Gap 14.3 (5-15) BUN 19 H (7-18) mg/dL Creatinine 1.2 H (0.55-1.02) mg/dL Est Cr Clr Drug Dosing 43.82 mL/min Estimated GFR (MDRD) 47 (>60) mL/min BUN/Creatinine Ratio 15.8 (14-18) Glucose 134 H (74-106) mg/dL Calcium 9.0 (8.5-10.1) mg/dL Total Bilirubin 0.2 (0.2-1.0) mg/dL AST 42 H (15-37) U/L ALT 53 (14-59) U/L Alkaline Phosphatase 70 (46-116) U/L Total Protein 5.4 L (6.4-8.2) g/dl Albumin 2.9 L (3.4-5.0) g/dl Globulin 2.5 gm/dL Albumin/Globulin Ratio 1.2 (1-2) Result Diagrams: 08/05/18 05:56 08/05/18 05:56 Consult PN Assessment/Plan POD#: 1 Procedures: Procedures AQUATIC THERAPY/EXERCISES (06/13/18) ASSAY OF PREALBUMIN (07/21/18) ASSAY THYROID STIM HORMONE (07/21/18) CARDIOVASCULAR STRESS TEST (03/06/18) COMPLETE CBC AUTOMATED (07/21/18) COMPREHEN METABOLIC PANEL (07/21/18) CT HEAD/BRAIN W/O DYE (12/26/17) EMERGENCY DEPT VISIT (12/26/17) FIXATION OF KNEE JOINT (05/28/18) GAIT TRAINING THERAPY (06/11/18) HT MUSCLE IMAGE SPECT MULT (03/06/18) MANUAL THERAPY 1/> REGIONS (06/11/18) MASSAGE THERAPY (06/11/18) MR-STAPH DNA AMP PROBE (07/21/18) PROTHROMBIN TIME (03/03/18) PT EVAL MOD COMPLEX 30 MIN (05/02/18) ROUTINE VENIPUNCTURE (07/21/18) THER/PROPH/DIAG INJ IV PUSH (12/26/17) THERAPEUTIC EXERCISES (06/11/18) THROMBOPLASTIN TIME PARTIAL (07/21/18) TX/PRO/DX INJ NEW DRUG ADDON (12/26/17) URINALYSIS AUTO W/O SCOPE (07/21/18) URINALYSIS AUTO W/SCOPE (03/03/18) X-RAY EXAM CHEST 2 VIEWS (03/03/18) (1) Femur fracture, right SNOMED Code(s): 44057629 Code(s): S72.91XA - UNSP FRACTURE OF RIGHT FEMUR, INIT FOR CLOS FX Priority : High Current Visit: Yes Qualifiers: Encounter type: initial encounter Femur location: unspecified portion of femur Fracture type: closed Fracture morphology: unspecified fracture morphology Qualified Code(s): S72.91XA - Unspecified fracture of right femur, initial encounter for closed fracture (2) Acute renal injury SNOMED Code(s): 07342793 Code(s): N17.9 - ACUTE KIDNEY FAILURE, UNSPECIFIED Priority: High Current Visit: Yes (3) Migraine headache SNOMED Code(s): 98684832 Code(s): G43.909 - MIGRAINE, UNSP, NOT INTRACTABLE, WITHOUT STATUS MIGRAINOSUS Priority: Low Current Visit: No Qualifiers: Migraine type: unspecified Status migrainosus presence: without status migrainosus Intractability: not intractable Qualified Code(s): G43.909 - Migraine, unspecified, not intractable, without status migrainosus (4) Osteoarthritis SNOMED Code(s): 725634497 Code(s): M19.90 - UNSPECIFIED OSTEOARTHRITIS, UNSPECIFIED SITE Priority: High Current Visit: Yes Qualifiers: Osteoarthritis location: knee Osteoarthritis type: unspecified (5) S/P knee replacement SNOMED Code(s): 249789124 Code(s): Z96.659 - PRESENCE OF UNSPECIFIED ARTIFICIAL KNEE JOINT Priority: High Current Visit: Yes Qualifiers: Laterality: right Qualified Code(s): Z96.651 - Presence of right artificial knee joint (6) Hyperkalemia SNOMED Code(s): 11683617 Code(s): E87.5 - HYPERKALEMIA Priority: High Current Visit: Yes (7) Tobacco use disorder SNOMED Code(s): 873958163 Code(s): F17.200 - NICOTINE DEPENDENCE, UNSPECIFIED, UNCOMPLICATED Priority : High Current Visit: Yes Problem List Initiated/Reviewed/Updated: Yes Plan: I/P: Acute: Right femur fracture -2/2 fall after TKA -Management per primary team -Plan for surgery morning of 08/06/18 -NPO after midnight -Insert dobson catheter to minimize movement -Bedrest -Hold pharmacologic anticoagulation, continue SCDs -Monitor labs as below -Continue PT/OT -May require placement after surgery for rehab stay -Consult CM/SW S/P right total knee arthroplasty - post-operative day 1 -DVT prophylaxis and pain management per primary care team -PT/OT -IS/RT -Monitor oxygen saturation -Titrate oxygen as needed -Vital signs stable -Monitor labs -Pre-operative Hgb was 13.6; Now 10.0 -Pre-operative GFR was 58; Now 47 Osteoarthritis of right knee -Pain management per primary care team Hyperkalemia -Potassium 5.3 -IV fluids as ordered -Repeat BMP today JONO -History of similar labs after last TKA -Baseline GFR was 58 with creatinine of 1.0 -BUN 19 -Creatinine 1.2 -eGFR 47 -IV fluids as ordered -Monitor Tobacco use disorder -Smokes 0.5 PPD for past 20 years -Nicotine patch -Cessation counseling Chronic: Acne OA Depression Anxiety GERD IBS Migraine RA Abnormal EKG with Q waves in inferior leads Colitis Gastric bypass Plan: CM for discharge planning GI prophylaxis Home medications as indicated Other orders as listed above Routine AM labs She is a full code. Her PCP is Cleo Soto PA-C Thank you for allowing us to participate in the care of this patient!! Requesting Provider: Dr. Patel Date Consult Requested: 08/05/18 Reason for Consult: Post-opeartive medical management - Hyperkalemia and JONO Patient History Reviewed: Yes Admission H&P Reviewed: Yes Time Spent (in minutes): 45
--- NOTE | 2018-08-05 09:35 | PCM.PREANE ---
Preanesthetic Assessment - Anesthesia/Transfusion/Family Hx Anesthesia History: Prior Anesthesia Reaction Type of Anesthesia Reaction: Excessive Nausea/Vomiting (scopalamine patch noted from08/04/2018), Other (see below) (residual numbness noted on operative (right) leg post spinal and adductor canal block on 08/04/2018) Family History of Anesthesia Reaction: No Transfusion History: Prior Transfusion Without Reaction Intubation History: Unknown - Review of Systems General: No Symptoms Pulmonary: No Symptoms (Smoker: 0.5PPD for 20 years, no cough noted/nicotine patch noted.) Cardiovascular: No Symptoms Gastrointestinal: No Symptoms (GERD/IBS/history of gastric bypass surgery) Neurological: No Symptoms (lower back pain on occasion), Headache (migraines-on depakote), Numbness (left lateral leg since total knee replacement 2017/ currently now right below knee numbness since surgery.) Other: Reports: Easy Bruising, Sinus Problem (Allergic Rhinitis), Depression - Physical Assessment NPO Status Date: 08/05/18 NPO Status Time: 23:59 Pulse: 69 O2 Sat by Pulse Oximetry: 100 Respiratory Rate: 14 Blood Pressure: 113/88 Temperature: 36.6 C Vital Signs: Last Vital Signs Temp 36.6 C 08/05/18 03:46 Pulse 69 08/05/18 07:27 Resp 14 08/05/18 07:27 BP 113/88 08/05/18 07:27 Pulse Ox 100 08/05/18 07:27 Height: 1.6 m Weight: 72.802 kg ASA Class: 2 Mental Status: Alert & Oriented x3 Airway Class: Mallampati = 2 Dentition: Reports: Normal Dentition, Caries Thyro-Mental Finger Breadths: 3 Mouth Opening Finger Breadths: 3 ROM/Head Extension: Full Lungs: Clear to Auscultation, Normal Respiratory Effort Cardiovascular: Regular Rate, Regular Rhythm, No Murmurs - Lab Values: Laboratory Last Values WBC 9.83 K/mm3 (3.98-10.04) 08/05/18 05:56 RBC 3.72 M/mm3 (3.98-5.22) L 08/05/18 05:56 Hgb 10.0 gm/L (11.2-15.7) L 08/05/18 05:56 Hct 31.4 % (34.1-44.9) L 08/05/18 05:56 MCV 84.4 fl (79.4-94.8) 08/05/18 05:56 MCH 26.9 pg (25.6-32.2) 08/05/18 05:56 MCHC 31.8 g/dl (32.2-35.5) L 08/05/18 05:56 RDW Std Deviation 49.7 fL (36.4-46.3) H 08/05/18 05:56 Plt Count 208 K/mm3 (182-369) 08/05/18 05:56 MPV 11.6 fl (9.4-12.3) 08/05/18 05:56 Sodium 136 mEq/L (136-145) 08/05/18 05:56 Potassium 5.3 mEq/L (3.5-5.1) H 08/05/18 05:56 Chloride 102 mEq/L (98-107) 08/05/18 05:56 Carbon Dioxide 25 mEq/L (21-32) 08/05/18 05:56 Anion Gap 14.3 (5-15) 08/05/18 05:56 BUN 19 mg/dL (7-18) H 08/05/18 05:56 Creatinine 1.2 mg/dL (0.55-1.02) H 08/05/18 05:56 Est Cr Clr Drug Dosing 43.82 mL/min 08/05/18 05:56 Estimated GFR (MDRD) 47 mL/min (>60) 08/05/18 05:56 BUN/Creatinine Ratio 15.8 (14-18) 08/05/18 05:56 Glucose 134 mg/dL (74-106) H 08/05/18 05:56 Calcium 9.0 mg/dL (8.5-10.1) 08/05/18 05:56 Total Bilirubin 0.2 mg/dL (0.2-1.0) 08/05/18 05:56 AST 42 U/L (15-37) H 08/05/18 05:56 ALT 53 U/L (14-59) 08/05/18 05:56 Alkaline Phosphatase 70 U/L (46-116) 08/05/18 05:56 Total Protein 5.4 g/dl (6.4-8.2) L 08/05/18 05:56 Albumin 2.9 g/dl (3.4-5.0) L 08/05/18 05:56 Globulin 2.5 gm/dL 08/05/18 05:56 Albumin/Globulin Ratio 1.2 (1-2) 08/05/18 05:56 Above labs reviewed and noted and within acceptable ranges to proceed with scheduled procedure. Plan to recheck potassium level in morning of surgery. - Allergies Allergies/Adverse Reactions: Allergies Allergy/AdvReac Type Severity Reaction Status Date / Time morphine Allergy Rash Verified 08/04/18 15:24 Penicillins Allergy Hives Verified 08/04/18 15:24 - Anesthesia Plan Pre-Op Medication Ordered: None - Acknowledgements Anesthesia Type Planned: General Anesthesia Pt an Appropriate Candidate for the Planned Anesthesia: Yes Alternatives and Risks of Anesthesia Discussed w Pt/Guardian: Yes Pt/Guardian Understands and Agrees with Anesthesia Plan: Yes PreAnesthesia Questionnaire HEENT History: Reports: Allergic Rhinitis, Impaired Vision Cardiovascular History: Reports: None, Other (See Below) Other Cardiovascular History: Abnormal EKG Respiratory History: Reports: Asthma Gastrointestinal History: Reports: GERD, Irritable Bowel Syndrome, Other (See Below) Other Gastrointestinal History: Colitis Genitourinary History: Reports: None 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 PROCESSING TECH History: Reports: None Musculoskeletal History: Reports: Arthritis, Osteoarthritis Neurological History: Reports: Concussion, Migraines Psychiatric History: Reports: Depression Endocrine/Metabolic History: Reports: None Hematologic History: Reports: None Immunologic History: Reports: None Oncologic (Cancer) History: Reports: None Dermatologic History: Other Dermatologic History: Acne, perirectal abscess - Past Surgical History Head Surgeries/Procedures: Reports: None HEENT Surgical History: Reports: Naso-Sinus Surgery, Tonsillectomy Cardiovascular Surgical History: Reports: None Respiratory Surgical History: Reports: None Other Respiratory Surgeries/Procedures: Current smoker GI Surgical History: Reports: Bariatric Procedure, Cholecystectomy, Colonoscopy Female Surgical History: Reports: Hysterectomy, Oophorectomy Endocrine Surgical History: Reports: None Neurological Surgical History: Reports: None Musculoskeletal Surgical History: Reports: Arthroscopic Knee, Arthroscopic Procedure, Knee Replacement Other Musculoskeletal Surgeries/Procedures:: Bilateral ACL, Left total knee replacement Oncologic Surgical History: Reports: None Dermatological Surgical History: Reports: Other (See Below) - SUBSTANCE USE Smoking Status *Q: Current Every Day Smoker Tobacco Use Within Last Twelve Months: Cigarettes Recreational Drug Use History: No - HOME MEDS Home Medications: Home Meds Divalproex Sodium 500 mg PO DAILY 12/26/17 [History] Doxycycline [Vibramycin] 100 mg PO DAILY 12/26/17 [History] buPROPion [Wellbutrin SR] 150 mg PO DAILY 12/26/17 [History] Cholecalciferol (Vitamin D3) [Vitamin D3] 5,000 unit PO DAILY 03/28/18 [History] Dicyclomine [Bentyl] 20 mg PO QID PRN 03/28/18 [History] Loratadine/Pseudoephedrine [Claritin-D 12 Hour] 1 tab PO DAILY 03/28/18 [History ] Magnesium 500 mg PO DAILY 03/28/18 [History] Multivitamin [Zoo Chews] 1 tab PO DAILY 03/28/18 [History] Omeprazole 20 mg PO DAILY 03/31/18 [History] FLUoxetine HCl [Prozac] 20 mg PO DAILY 05/28/18 [History] buPROPion [buPROPion XL] 300 mg PO DAILY 05/28/18 [History] Ondansetron [Zofran] 4 mg PO Q8H PRN 08/01/18 [History] Acetaminophen/oxyCODONE [Percocet 325-5 MG] 1 - 2 tab PO Q6H PRN #60 tablet [Rx] Bisacodyl [Dulcolax] 5 mg PO DAILY PRN tablet 08/04/18 [Rx] Cyclobenzaprine [Flexeril] 10 mg PO Q12H PRN #30 tablet 08/04/18 [Rx] Docusate Sodium [Colace] 100 mg PO BID cap 08/04/18 [Rx] Magnesium Hydroxide [Milk of Magnesia] 30 ml PO BID PRN cup 08/04/18 [Rx] Rivaroxaban [Xarelto] 10 mg PO DAILY #30 tablet 08/04/18 [Rx] Sennosides [Senna] 8.6 mg PO BID PRN tablet 08/04/18 [Rx] - CURRENT (IN HOUSE) MEDS Current Meds: Current Medications Bisacodyl (Dulcolax) 5 mg PO DAILY PRN PRN Reason: Constipation Bupropion HCl (Wellbutrin Xl) 450 mg PO DAILY [facility] Last Admin: 08/05/18 09:03 Dose: 450 mg Cholecalciferol (Vitamin D3) 5,000 unit PO DAILY [facility] Last Admin: 08/05/18 09:01 Dose: 5,000 unit Cyclobenzaprine HCl (Flexeril) 10 mg PO TID PRN PRN Reason: Spasms Last Admin: 08/05/18 07:10 Dose: 10 mg Dicyclomine HCl (Bentyl) 20 mg PO QID PRN PRN Reason: Pain Divalproex Sodium (Depakote) 500 mg PO DAILY [facility] Last Admin: 08/05/18 09:01 Dose: 500 mg Docusate Sodium (Colace) 100 mg PO BID [facility] Last Admin: 08/05/18 09:01 Dose: 100 mg Doxycycline Hyclate (Vibramycin) 100 mg PO DAILY [facility] Last Admin: 08/05/18 09:03 Dose: 100 mg Fluoxetine HCl (Prozac) 20 mg PO DAILY [facility] Last Admin: 08/05/18 09:01 Dose: 20 mg Hydromorphone HCl (Dilaudid) 0.2 mg IVPUSH Q2H PRN PRN Reason: Pain Last Admin: 08/04/18 20:13 Dose: 0.2 mg Cefazolin Sodium/Dextrose 2 gm (/ Premix) 50 mls @ 100 mls/hr IV Q8H [facility] Stop: 08/05/18 10:29 Last Admin: 08/05/18 01:53 Dose: 100 mls/hr Sodium Chloride (Normal Saline) 500 mls @ 20 drops/min IV .BOLUS ONE Stop: 08/05/18 14:10 Last Admin: 08/05/18 08:55 Dose: 999 drops/min Magnesium Hydroxide (Milk Of Magnesia) 30 ml PO BID PRN PRN Reason: Constipation Magnesium Oxide (Magnesium Oxide) 400 mg PO DAILY [facility] Last Admin: 08/05/18 09:02 Dose: 400 mg Miscellaneous Information (Remove Patch) 1 ea TRDERM DAILY [facility] Last Admin: 08/05/18 09:06 Dose: 1 ea Multivitamins (Thera) 1 each PO DAILY [facility] Last Admin: 08/05/18 09:03 Dose: 1 each Naloxone HCl (Narcan) 0.1 mg IVPUSH Q5M PRN PRN Reason: Oversedation Nicotine (Habitrol) 21 mg TRDERM DAILY [facility] Last Admin: 08/05/18 09:06 Dose: 21 mg Ondansetron HCl (Zofran) 4 mg IVPUSH Q6H PRN PRN Reason: Nausea/Vomiting Oxycodone/Acetaminophen (Percocet 325-5 Mg) 1 - 2 tab PO Q4H PRN PRN Reason: Pain Last Admin: 08/05/18 09:03 Dose: 2 tab Pantoprazole Sodium (Protonix) 40 mg PO DAILY@0700 [facility] Last Admin: 08/05/18 07:07 Dose: 40 mg Loratadine/ (Pseudoephedrine) 0 each PO DAILY [facility] Last Admin: 08/05/18 09:06 Dose: Not Given Scopolamine (Transderm-Scop) 1.5 mg TRDERM ONETIME [facility] Last Admin: 08/04/18 10:27 Dose: 1.5 mg Senna (Senna) 8.6 mg PO BID PRN PRN Reason: Constipation Discontinued Medications Acetaminophen (Tylenol) 975 mg PO ONETIME [facility] Stop: 08/04/18 12:00 Last Admin: 08/04/18 10:27 Dose: 975 mg Bupivacaine HCl (Marcaine 0.25%) Confirm Administered Dose 30 ml .ROUTE .STK- MED ONE Stop: 08/04/18 10:01 Last Admin: 08/04/18 13:27 Dose: 30 ml Cefazolin Sodium (Ancef) Confirm Administered Dose 2 gm .ROUTE .STK-MED ONE Stop: 08/04/18 10:00 Last Admin: 08/04/18 13:22 Dose: 2 gm Cefazolin Sodium (Ancef) Confirm Administered Dose 2 gm .ROUTE .STK-MED ONE Stop: 08/04/18 10:58 Morphine Sulfate 8 mg/Epinephrine HCl 0.3 mg/Cefuroxime Sodium 750 mg/Ketorolac Tromethamine 30 mg/Sodium Chloride 27.9 ml 0 mg .XX ONETIME ONE Stop: 08/04/18 12:01 Last Admin: 08/04/18 15:29 Dose: Not Given Diphenhydramine HCl (Benadryl) 25 mg IVPUSH Q6H PRN PRN Reason: itching Stop: 08/04/18 16:00 Epinephrine HCl (Adrenalin) Confirm Administered Dose 1 mg .ROUTE .STK-MED ONE Stop: 08/04/18 07:54 Fentanyl (Sublimaze) Confirm Administered Dose 100 mcg .ROUTE .STK-MED ONE Stop: 08/04/18 10:58 Fentanyl (Sublimaze) 50 mcg IVPUSH Q5M PRN PRN Reason: pain Stop: 08/04/18 16:00 Hydromorphone HCl (Dilaudid) 0.2 mg IVPUSH Q2H PRN PRN Reason: Pain Lactated Ringer's (Ringers, Lactated) 1,000 mls @ 125 mls/hr IV ASDIRECTED [facility] Stop: 08/04/18 23:00 Last Admin: 08/04/18 10:10 Dose: 125 mls/hr Lactated Ringer's (Ringers, Lactated) Confirm Administered Dose 1,000 mls @ as directed .ROUTE .STK-MED ONE Stop: 08/04/18 13:10 Iodine (Iodine 2% Mild Tincture) Confirm Administered Dose 30 ml .ROUTE .STK- MED ONE Stop: 08/04/18 10:01 Last Admin: 08/04/18 13:20 Dose: 18 ml Ketorolac Tromethamine (Toradol) 15 mg IVPUSH Q6H PRN PRN Reason: Pain Last Admin: 08/05/18 07:11 Dose: 15 mg Lidocaine/Sodium Bicarbonate (Buffered Lidocaine 1% In Ns 8.4%) 0.25 ml IDERM ONETIME PRN PRN Reason: Prior to IV Start Stop: 08/04/18 18:00 Last Admin: 08/04/18 10:10 Dose: 0.25 ml Metoclopramide HCl (Reglan) 10 mg IVPUSH ONETIME PRN PRN Reason: Nausea/Vomiting Stop: 08/04/18 17:00 Midazolam HCl (Versed 1 Mg/Ml) Confirm Administered Dose 2 mg .ROUTE .STK-MED ONE Stop: 08/04/18 10:58 Morphine Sulfate (Morphine) 2 mg IVPUSH Q2H PRN PRN Reason: Breakthrough Pain Non-Formulary Medication (Ondansetron) 4 mg PO Q8H PRN PRN Reason: Nausea/Vomiting Ondansetron HCl (Zofran) 4 mg IVPUSH ONETIME PRN PRN Reason: Nausea/Vomiting Stop: 08/04/18 18:00 Oxycodone HCl (Oxycontin) 10 mg PO ONETIME [facility] Stop: 08/04/18 12:00 Last Admin: 08/04/18 10:27 Dose: 10 mg Pregabalin (Lyrica) 50 mg PO ONETIME [facility] Stop: 08/04/18 12:00 Last Admin: 08/04/18 10:27 Dose: 50 mg Propofol (Diprivan 20 Ml) Confirm Administered Dose 600 mg .ROUTE .STK-MED ONE Stop: 08/04/18 10:56 Rivaroxaban (Xarelto) 10 mg PO DAILY [facility] Ropivacaine (Naropin 0.5%) Confirm Administered Dose 30 ml .ROUTE .STK-MED ONE Stop: 08/04/18 07:54 Sodium Chloride (Saline Flush) 10 ml FLUSH ASDIRECTED PRN PRN Reason: Keep Vein Open Stop: 08/04/18 18:00 Tranexamic Acid (Cyklokapron) Confirm Administered Dose 1,000 mg .ROUTE .STK- MED ONE Stop: 08/04/18 10:00 Last Admin: 08/04/18 13:35 Dose: 1,000 mg Vancomycin HCl (Vancomycin) Confirm Administered Dose 1 gm .ROUTE .STK-MED ONE Stop: 08/04/18 10:00 Last Admin: 08/04/18 13:30 Dose: 1 gm
[2018-08-05] MEDS: Sodium Chloride 0.9% 1,000 ML IV SCH ×2 (13:35→23:26)
[2018-08-05] MEDS: Dicyclomine 10 MG Cap PO PRN (20:23)
[2018-08-06] MEDS: HYDROmorphone 1 MG/ML Syringe IVPUSH PRN ×3 (02:20→06:36)
[2018-08-06] MEDS ORDERED: ceFAZolin 1 GM Vial ONE ×2 (06:28→06:36)
--- NOTE | 2018-08-06 06:28 | PCM.CONSN ---
- General Info Date of Service: 08/06/18 Admission Dx/Problem (Free Text): Admission Diagnosis/Problem Admission Diagnosis/Problem Osteoarthritis of knee Functional Status: Reports: Pain Controlled, Tolerating Diet, Ambulating, Urinating, Incentive Spirometry. Denies: New Symptoms - Review of Systems General: Reports: No Symptoms. Denies: Fever, Weakness, Fatigue, Malaise, Chills HEENT: Reports: Sore Throat (mild - improving ). Denies: Headaches Pulmonary: Reports: No Symptoms. Denies: Shortness of Breath, Pleuritic Chest Pain, Cough, Sputum, Wheezing Cardiovascular: Reports: No Symptoms. Denies: Chest Pain, Palpitations, Dyspnea on Exertion, Orthopnea, Edema Gastrointestinal: Reports: No Symptoms. Denies: Abdominal Pain, Constipation, Diarrhea, Nausea, Vomiting Genitourinary: Reports: No Symptoms. Denies: Pain Musculoskeletal: Reports: Leg Pain Skin: Reports: No Symptoms. Denies: Cyanosis Neurological: Reports: Difficulty Walking, Gait Disturbance. Denies: Confusion , Numbness, Seizure, Trouble Speaking, Weakness, Change in Speech Psychiatric: Reports: No Symptoms - Patient Data Vitals - Most Recent: Last Vital Signs Temp 97.9 F 08/06/18 04:41 Pulse 71 08/06/18 04:41 Resp 16 08/06/18 04:41 BP 89/50 L 08/06/18 04:41 Pulse Ox 93 L 08/06/18 04:41 Weight - Most Recent: 169 lb 4.8 oz I&O - Last 24 Hours: Intake & Output 08/05/18 08/05/18 08/06/18 14:59 22:59 06:59 Intake Total 660 3971 2928 Output Total 750 1200 Balance 660 1481 758 Lab Results Last 24 Hours: Laboratory Results - last 24 hr 08/05/18 08/05/18 08/05/18 Range/Units 05:56 05:56 05:56 WBC 9.83 (3.98-10.04) K/mm3 RBC 3.72 L (3.98-5.22) M/mm3 Hgb 10.0 L (11.2-15.7) gm/L Hct 31.4 L (34.1-44.9) % MCV 84.4 (79.4-94.8) fl MCH 26.9 (25.6-32.2) pg MCHC 31.8 L (32.2-35.5) g/dl RDW Std Deviation 49.7 H (36.4-46.3) fL Plt Count 208 (182-369) K/mm3 MPV 11.6 (9.4-12.3) fl Neut % (Auto) (34.0-71.1) % Lymph % (Auto) (19.3-51.7) % [place] % (Auto) (4.7-12.5) % Eos % (Auto) (0.7-5.8) Baso % (Auto) (0.1-1.2) % Neut # (Auto) (1.56-6.13) K/mm3 Lymph # (Auto) (1.18-3.74) K/mm3 [place] # (Auto) (0.24-0.36) K/mm3 Eos # (Auto) (0.04-0.36) K/mm3 Baso # (Auto) (0.01-0.08) K/mm3 Sodium 136 (136-145) mEq/L Potassium 5.3 H (3.5-5.1) mEq/L Chloride 102 (98-107) mEq/L Carbon Dioxide 25 (21-32) mEq/L Anion Gap 14.3 (5-15) BUN 19 H (7-18) mg/dL Creatinine 1.2 H (0.55-1.02) mg/dL Est Cr Clr Drug Dosing 43.82 mL/min Estimated GFR (MDRD) 47 (>60) mL/min BUN/Creatinine Ratio 15.8 (14-18) Glucose 134 H (74-106) mg/dL Calcium 9.0 (8.5-10.1) mg/dL Magnesium 1.9 (1.8-2.4) mg/dl Total Bilirubin 0.2 (0.2-1.0) mg/dL AST 42 H (15-37) U/L ALT 53 (14-59) U/L Alkaline Phosphatase 70 (46-116) U/L Total Protein 5.4 L (6.4-8.2) g/dl Albumin 2.9 L (3.4-5.0) g/dl Globulin 2.5 gm/dL Albumin/Globulin Ratio 1.2 (1-2) 0308/05/18 08/06/18 Range/Units 16:46 20:33 05:42 WBC 4.42 (3.98-10.04) K/mm3 RBC 3.16 L (3.98-5.22) M/mm3 Hgb 8.4 L (11.2-15.7) gm/L Hct 26.6 L (34.1-44.9) % MCV 84.2 (79.4-94.8) fl MCH 26.6 (25.6-32.2) pg MCHC 31.6 L (32.2-35.5) g/dl RDW Std Deviation 50.2 H (36.4-46.3) fL Plt Count 156 L (182-369) K/mm3 MPV 11.8 (9.4-12.3) fl Neut % (Auto) 38.1 (34.0-71.1) % Lymph % (Auto) 46.4 (19.3-51.7) % [place] % (Auto) 13.3 H (4.7-12.5) % Eos % (Auto) 1.8 (0.7-5.8) Baso % (Auto) 0.2 (0.1-1.2) % Neut # (Auto) 1.68 (1.56-6.13) K/mm3 Lymph # (Auto) 2.05 (1.18-3.74) K/mm3 [place] # (Auto) 0.59 H (0.24-0.36) K/mm3 Eos # (Auto) 0.08 (0.04-0.36) K/mm3 Baso # (Auto) 0.01 (0.01-0.08) K/mm3 Sodium 137 138 (136-145) mEq/L Potassium 4.5 4.0 (3.5-5.1) mEq/L Chloride 104 105 (98-107) mEq/L Carbon Dioxide 26 25 (21-32) mEq/L Anion Gap 11.5 12.0 (5-15) BUN 21 H 23 H (7-18) mg/dL Creatinine 1.6 H 1.6 H (0.55-1.02) mg/dL Est Cr Clr Drug Dosing 32.85 32.85 mL/min Estimated GFR (MDRD) 33 33 (>60) mL/min BUN/Creatinine Ratio 13.1 L 14.4 (14-18) Glucose 111 H 112 H (74-106) mg/dL Calcium 8.3 L 8.0 L (8.5-10.1) mg/dL Magnesium (1.8-2.4) mg/dl Total Bilirubin (0.2-1.0) mg/dL AST (15-37) U/L ALT (14-59) U/L Alkaline Phosphatase (46-116) U/L Total Protein (6.4-8.2) g/dl Albumin (3.4-5.0) g/dl Globulin gm/dL Albumin/Globulin Ratio (1-2) Med Orders - Current: Current Medications Bisacodyl (Dulcolax) 5 mg PO DAILY PRN PRN Reason: Constipation Bupropion HCl (Wellbutrin Xl) 450 mg PO DAILY [facility] Last Admin: 08/05/18 09:03 Dose: 450 mg Cholecalciferol (Vitamin D3) 5,000 unit PO DAILY [facility] Last Admin: 08/05/18 09:01 Dose: 5,000 unit Cyclobenzaprine HCl (Flexeril) 10 mg PO TID PRN PRN Reason: Spasms Last Admin: 08/05/18 20:23 Dose: 10 mg Dicyclomine HCl (Bentyl) 20 mg PO QID PRN PRN Reason: Pain Last Admin: 08/05/18 20:23 Dose: 20 mg Docusate Sodium (Colace) 100 mg PO BID [facility] Last Admin: 08/05/18 20:24 Dose: 100 mg Doxycycline Hyclate (Vibramycin) 100 mg PO DAILY [facility] Last Admin: 08/05/18 09:03 Dose: 100 mg Fluoxetine HCl (Prozac) 20 mg PO DAILY [facility] Last Admin: 08/05/18 09:01 Dose: 20 mg Hydromorphone HCl (Dilaudid) 0.2 mg IVPUSH Q2H PRN PRN Reason: Pain Last Admin: 08/06/18 04:32 Dose: 0.2 mg Sodium Chloride (Normal Saline) 1,000 mls @ 100 mls/hr IV ASDIRECTED [facility] Last Admin: 08/05/18 23:26 Dose: 100 mls/hr Magnesium Hydroxide (Milk Of Magnesia) 30 ml PO BID PRN PRN Reason: Constipation Magnesium Oxide (Magnesium Oxide) 400 mg PO DAILY [facility] Last Admin: 08/05/18 09:02 Dose: 400 mg Miscellaneous Information (Remove Patch) 1 ea TRDERM DAILY [facility] Last Admin: 08/05/18 09:06 Dose: 1 ea Multivitamins (Thera) 1 each PO DAILY [facility] Last Admin: 08/05/18 09:03 Dose: 1 each Naloxone HCl (Narcan) 0.1 mg IVPUSH Q5M PRN PRN Reason: Oversedation Nicotine (Habitrol) 21 mg TRDERM DAILY [facility] Last Admin: 08/05/18 09:06 Dose: 21 mg Ondansetron HCl (Zofran) 4 mg IVPUSH Q6H PRN PRN Reason: Nausea/Vomiting Oxycodone/Acetaminophen (Percocet 325-5 Mg) 1 - 2 tab PO Q4H PRN PRN Reason: Pain Last Admin: 08/05/18 22:38 Dose: 2 tab Pantoprazole Sodium (Protonix) 40 mg PO DAILY@0700 [facility] Last Admin: 08/05/18 07:07 Dose: 40 mg Loratadine/ (Pseudoephedrine) 0 each PO DAILY [facility] Last Admin: 08/05/18 09:06 Dose: Not Given Divalproex Sodium (500 Mg Tab.Er Ptom) 0 each PO DAILY [facility] Scopolamine (Transderm-Scop) 1.5 mg TRDERM ONETIME [facility] Last Admin: 08/04/18 10:27 Dose: 1.5 mg Senna (Senna) 8.6 mg PO BID PRN PRN Reason: Constipation Discontinued Medications Acetaminophen (Tylenol) 975 mg PO ONETIME [facility] Stop: 08/04/18 12:00 Last Admin: 08/04/18 10:27 Dose: 975 mg Bupivacaine HCl (Marcaine 0.25%) Confirm Administered Dose 30 ml .ROUTE .STK- MED ONE Stop: 08/04/18 10:01 Last Admin: 08/04/18 13:27 Dose: 30 ml Cefazolin Sodium (Ancef) Confirm Administered Dose 2 gm .ROUTE .STK-MED ONE Stop: 08/04/18 10:00 Last Admin: 08/04/18 13:22 Dose: 2 gm Cefazolin Sodium (Ancef) Confirm Administered Dose 2 gm .ROUTE .STK-MED ONE Stop: 08/04/18 10:58 Morphine Sulfate 8 mg/Epinephrine HCl 0.3 mg/Cefuroxime Sodium 750 mg/Ketorolac Tromethamine 30 mg/Sodium Chloride 27.9 ml 0 mg .XX ONETIME ONE Stop: 08/04/18 12:01 Last Admin: 08/04/18 15:29 Dose: Not Given Diphenhydramine HCl (Benadryl) 25 mg IVPUSH Q6H PRN PRN Reason: itching Stop: 08/04/18 16:00 Divalproex Sodium (Depakote) 500 mg PO DAILY [facility] Last Admin: 08/05/18 09:01 Dose: 500 mg Epinephrine HCl (Adrenalin) Confirm Administered Dose 1 mg .ROUTE .STK-MED ONE Stop: 08/04/18 07:54 Fentanyl (Sublimaze) Confirm Administered Dose 100 mcg .ROUTE .STK-MED ONE Stop: 08/04/18 10:58 Fentanyl (Sublimaze) 50 mcg IVPUSH Q5M PRN PRN Reason: pain Stop: 08/04/18 16:00 Hydromorphone HCl (Dilaudid) 0.2 mg IVPUSH Q2H PRN PRN Reason: Pain Lactated Ringer's (Ringers, Lactated) 1,000 mls @ 125 mls/hr IV ASDIRECTED [facility] Stop: 08/04/18 23:00 Last Admin: 08/04/18 10:10 Dose: 125 mls/hr Cefazolin Sodium/Dextrose 2 gm (/ Premix) 50 mls @ 100 mls/hr IV Q8H [facility] Stop: 08/05/18 10:29 Last Admin: 08/05/18 11:10 Dose: 100 mls/hr Lactated Ringer's (Ringers, Lactated) Confirm Administered Dose 1,000 mls @ as directed .ROUTE .STK-MED ONE Stop: 08/04/18 13:10 Sodium Chloride (Normal Saline) 500 mls @ 20 drops/min IV .BOLUS ONE Stop: 08/05/18 14:10 Last Admin: 08/05/18 08:55 Dose: 999 drops/min Iodine (Iodine 2% Mild Tincture) Confirm Administered Dose 30 ml .ROUTE .STK- MED ONE Stop: 08/04/18 10:01 Last Admin: 08/04/18 13:20 Dose: 18 ml Ketorolac Tromethamine (Toradol) 15 mg IVPUSH Q6H PRN PRN Reason: Pain Last Admin: 08/05/18 07:11 Dose: 15 mg Lidocaine/Sodium Bicarbonate (Buffered Lidocaine 1% In Ns 8.4%) 0.25 ml IDERM ONETIME PRN PRN Reason: Prior to IV Start Stop: 08/04/18 18:00 Last Admin: 08/04/18 10:10 Dose: 0.25 ml Metoclopramide HCl (Reglan) 10 mg IVPUSH ONETIME PRN PRN Reason: Nausea/Vomiting Stop: 08/04/18 17:00 Midazolam HCl (Versed 1 Mg/Ml) Confirm Administered Dose 2 mg .ROUTE .STK-MED ONE Stop: 08/04/18 10:58 Morphine Sulfate (Morphine) 2 mg IVPUSH Q2H PRN PRN Reason: Breakthrough Pain Non-Formulary Medication (Ondansetron) 4 mg PO Q8H PRN PRN Reason: Nausea/Vomiting Ondansetron HCl (Zofran) 4 mg IVPUSH ONETIME PRN PRN Reason: Nausea/Vomiting Stop: 08/04/18 18:00 Oxycodone HCl (Oxycontin) 10 mg PO ONETIME [facility] Stop: 08/04/18 12:00 Last Admin: 08/04/18 10:27 Dose: 10 mg Pregabalin (Lyrica) 50 mg PO ONETIME [facility] Stop: 08/04/18 12:00 Last Admin: 08/04/18 10:27 Dose: 50 mg Propofol (Diprivan 20 Ml) Confirm Administered Dose 600 mg .ROUTE .STK-MED ONE Stop: 08/04/18 10:56 Rivaroxaban (Xarelto) 10 mg PO DAILY [facility] Ropivacaine (Naropin 0.5%) Confirm Administered Dose 30 ml .ROUTE .STK-MED ONE Stop: 08/04/18 07:54 Sodium Chloride (Saline Flush) 10 ml FLUSH ASDIRECTED PRN PRN Reason: Keep Vein Open Stop: 08/04/18 18:00 Tranexamic Acid (Cyklokapron) Confirm Administered Dose 1,000 mg .ROUTE .STK- MED ONE Stop: 08/04/18 10:00 Last Admin: 08/04/18 13:35 Dose: 1,000 mg Vancomycin HCl (Vancomycin) Confirm Administered Dose 1 gm .ROUTE .STK-MED ONE Stop: 08/04/18 10:00 Last Admin: 08/04/18 13:30 Dose: 1 gm - Exam Quality Assessment: Urine Catheter, DVT Prophylaxis General: Alert, Oriented, Cooperative, No Acute Distress HEENT: Pupils Equal, Pupils Reactive, EOMI, Mucous Membr. Moist/[place] Neck: Supple, Trachea Midline, No JVD Lungs: Clear to Auscultation, Normal Respiratory Effort Cardiovascular: Regular Rate, Regular Rhythm GI/Abdominal Exam: Normal Bowel Sounds, Soft, Non-Tender, No Organomegaly, No Distention (Female) Exam: Deferred Back Exam: Normal Inspection, Full Range of Motion Extremities: No Pedal Edema, Normal Capillary Refill, Leg Pain, Limited Range of Motion, Other (Bandage in place on right leg. Cooling pack in place. ) Peripheral Pulses: 2+: Radial (L), Radial (R), Dorsalis Pedis (L), Dorsalis Pedis (R) Skin: Warm, Dry, Intact Wound/Incisions: Dressing Dry and Intact, No Drainage Neurological: No New Focal Deficit Psy/Mental Status: Alert, Normal Affect, Normal Mood Consult PN Assessment/Plan POD#: 0 Procedures: Procedures AQUATIC THERAPY/EXERCISES (06/13/18) ASSAY OF PREALBUMIN (07/21/18) ASSAY THYROID STIM HORMONE (07/21/18) CARDIOVASCULAR STRESS TEST (03/06/18) COMPLETE CBC AUTOMATED (07/21/18) COMPREHEN METABOLIC PANEL (07/21/18) CT HEAD/BRAIN W/O DYE (12/26/17) EMERGENCY DEPT VISIT (12/26/17) FIXATION OF KNEE JOINT (05/28/18) GAIT TRAINING THERAPY (06/11/18) HT MUSCLE IMAGE SPECT MULT (03/06/18) MANUAL THERAPY 1/> REGIONS (06/11/18) MASSAGE THERAPY (06/11/18) MR-STAPH DNA AMP PROBE (07/21/18) PROTHROMBIN TIME (03/03/18) PT EVAL MOD COMPLEX 30 MIN (05/02/18) ROUTINE VENIPUNCTURE (07/21/18) THER/PROPH/DIAG INJ IV PUSH (12/26/17) THERAPEUTIC EXERCISES (06/11/18) THROMBOPLASTIN TIME PARTIAL (07/21/18) TX/PRO/DX INJ NEW DRUG ADDON (12/26/17) URINALYSIS AUTO W/O SCOPE (07/21/18) URINALYSIS AUTO W/SCOPE (03/03/18) X-RAY EXAM CHEST 2 VIEWS (03/03/18) (1) Femur fracture, right SNOMED Code(s): 02302666 Code(s): S72.91XA - UNSP FRACTURE OF RIGHT FEMUR, INIT FOR CLOS FX Priority : High Current Visit: Yes Qualifiers: Encounter type: initial encounter Femur location: unspecified portion of femur Fracture type: closed Fracture morphology: unspecified fracture morphology Qualified Code(s): S72.91XA - Unspecified fracture of right femur, initial encounter for closed fracture (2) Acute renal injury SNOMED Code(s): 93508687 Code(s): N17.9 - ACUTE KIDNEY FAILURE, UNSPECIFIED Priority: High Current Visit: Yes (3) Migraine headache SNOMED Code(s): 36205808 Code(s): G43.909 - MIGRAINE, UNSP, NOT INTRACTABLE, WITHOUT STATUS MIGRAINOSUS Priority: Low Current Visit: No Qualifiers: Migraine type: unspecified Status migrainosus presence: without status migrainosus Intractability: not intractable Qualified Code(s): G43.909 - Migraine, unspecified, not intractable, without status migrainosus (4) Osteoarthritis SNOMED Code(s): 583385903 Code(s): M19.90 - UNSPECIFIED OSTEOARTHRITIS, UNSPECIFIED SITE Priority: High Current Visit: Yes Qualifiers: Osteoarthritis location: knee Osteoarthritis type: unspecified (5) S/P knee replacement SNOMED Code(s): 366451143 Code(s): Z96.659 - PRESENCE OF UNSPECIFIED ARTIFICIAL KNEE JOINT Priority: High Current Visit: Yes Qualifiers: Laterality: right Qualified Code(s): Z96.651 - Presence of right artificial knee joint (6) Hyperkalemia SNOMED Code(s): 11885161 Code(s): E87.5 - HYPERKALEMIA Priority: High Current Visit: Yes (7) Tobacco use disorder SNOMED Code(s): 474305082 Code(s): F17.200 - NICOTINE DEPENDENCE, UNSPECIFIED, UNCOMPLICATED Priority : High Current Visit: Yes Problem List Initiated/Reviewed/Updated: Yes My Orders Last 24 Hours: My Active Orders 08/05/18 09:45 Sodium Chloride 0.9% [Normal Saline] 1,000 ml IV ASDIRECTED 08/05/18 13:51 Bedrest [RC] BID Urinary Catheter Assessment [RC] 04,10,16,22 08/05/18 14:00 Insert Dobson Catheter [Insert Urinary Catheter] [OM.PC] Q24H 08/06/18 05:42 BASIC METABOLIC PANEL,BMP [CHEM] AM MAGNESIUM [CHEM] AM 08/07/18 05:11 BASIC METABOLIC PANEL,BMP [CHEM] AM CBC WITH AUTO DIFF [HEME] AM MAGNESIUM [CHEM] AM 08/08/18 05:11 BASIC METABOLIC PANEL,BMP [CHEM] AM CBC WITH AUTO DIFF [HEME] AM MAGNESIUM [CHEM] AM 08/09/18 05:11 BASIC METABOLIC PANEL,BMP [CHEM] AM CBC WITH AUTO DIFF [HEME] AM MAGNESIUM [CHEM] AM Plan: I/P: Acute: S/P Right femur fracture with intramedullary nailing of right femoral shaft fracture; Post-operative day 0 -2 fall after TKA -Management per primary team -Plan for surgery morning of 08/06/18 -NPO after midnight -> resume normal diet -Insert dobson catheter to minimize movement -> discontinue when able to ambulate -Bedrest -> discontinue -Hold pharmacologic anticoagulation, continue SCDs -> resume -Monitor labs as below -Continue PT/OT -May require placement after surgery for rehab stay -Consult CM/SW S/P right total knee arthroplasty - post-operative day 2 -DVT prophylaxis and pain management per primary care team -PT/OT -IS/RT -Monitor oxygen saturation -Titrate oxygen as needed -Vital signs stable -Monitor labs -Pre-operative Hgb was 13.6; Now 10.0-->8.4 (receiving IV fluids) -Pre-operative GFR was 58; Now 47-->52 Osteoarthritis of right knee -Pain management per primary care team JONO, improved -History of similar labs after last TKA -Baseline GFR was 58 with creatinine of 1.0 -BUN 19-->21-->23-->18 -Creatinine 1.2-->1.6-->1.6-->1.1 -eGFR 47-->33-->33-->52 -IV fluids as ordered -Monitor Tobacco use disorder -Smokes 0.5 PPD for past 20 years -Nicotine patch -Cessation counseling Resolved: Hyperkalemia -Potassium 5.3-->4.3 -IV fluids as ordered -Repeat BMP today Chronic: Acne OA Depression Anxiety GERD IBS Migraine RA Abnormal EKG with Q waves in inferior leads Colitis Gastric bypass Plan: CM for discharge planning GI prophylaxis Home medications as indicated Other orders as listed above Routine AM labs She is a full code. Her PCP is Cleo Soto PA-C Thank you for allowing us to participate in the care of this patient!!
[2018-08-06] MEDS ORDERED: Iodine/Sodium Iodide 2% Tincture 30 ML Bottle ONE (06:29)
[2018-08-06] MEDS ORDERED: Bupivacaine 0.25% 30 ML SDV ONE (06:29)
[2018-08-06] MEDS ORDERED: Vancomycin 1 GM SDV ONE (06:30)
[2018-08-06] MEDS ORDERED: Rocuronium 50 MG/5 ML Vial ONE (06:35)
[2018-08-06] MEDS ORDERED: Ondansetron 4 MG/2 ML SDV ONE (06:35)
[2018-08-06] MEDS ORDERED: Propofol 200 MG/20 ML SDV ONE (06:36)
[2018-08-06] MEDS ORDERED: fentaNYL 250 MCG/5 ML SDV ONE (06:36)
[2018-08-06] MEDS ORDERED: Midazolam 1 MG/ML 2 ML SDV ONE (06:36)
[2018-08-06] MEDS ORDERED: ceFAZolin 2 GM in Premix Bag 1 BAG IV SCH (07:00)
[2018-08-06] MEDS ORDERED: HYDROmorphone 0.5 MG/0.5 ML Syringe ONE ×2 (08:08→08:09)
[2018-08-06] MEDS ORDERED: fentaNYL 100 MCG/2 ML SDV ONE (08:11)
[2018-08-06] MEDS ORDERED: Divalproex Sodium 500 MG Tab.ER PO SCH (09:00)
[2018-08-06] MEDS ORDERED: fentaNYL 100 MCG/2 ML SDV IVPUSH PRN (09:13)
[2018-08-06] MEDS ORDERED: Ketorolac 30 MG/ML SDV IVPUSH PRN (09:13)
[2018-08-06] MEDS ORDERED: HYDROmorphone 0.5 MG/0.5 ML Syringe IVPUSH PRN (09:13)
--- NOTE | 2018-08-06 09:16 | PCM.POSTAN ---
POST ANESTHESIA ASSESSMENT - MENTAL STATUS Mental Status: Alert, Oriented - VITAL SIGNS Pulse Rate: 115 SaO2: 94 Resp Rate: 18 Blood Pressure: 140/59 Temperature: 36.3 C - RESPIRATORY Respiratory Status: Respiratory Rate WNL, Airway Patent, O2 Saturation Stable, Supplemental Oxygen - CARDIOVASCULAR CV Status: Blood Pressure Stable, Elevated Pulse Rate - GASTROINTESTINAL GI Status: No Symptoms - PAIN Pain Score: 3 - POST OP HYDRATION Hydration Status: Adequate & Stable - OBSERVATIONS Free Text/Narrative:: no anesthesia complications noted
--- NOTE | 2018-08-06 09:22 | CR ---
Right femur: 22 fluoroscopic spot views were obtained utilizing C-arm device. Comparison: Prior right femur exam of 08/05/18. Study shows reduction and fixation of previous femur fracture. Final films shows intramedullary selam in place. Fluoroscopy time is given as 114 seconds. Impression: 1. Procedural exam as noted above. Diagnostic code #2
[2018-08-06] MEDS: Acetaminophen/oxyCODONE 325-5 MG Tab PO PRN ×3 (10:39→20:14)
[2018-08-06] MEDS ORDERED: Lactated Ringers 1,000 ML ONE ×2 (10:49)
[2018-08-06] MEDS: Doxycycline 100 MG Cap PO SCH (13:17)
[2018-08-06] MEDS: LORATADINE PO SCH (13:24)
[2018-08-06] MEDS: PSEUDOEPHEDRINE PO SCH (13:24)
[2018-08-06] MEDS: Nicotine 21 MG/24 Hr Patch TRDERM SCH (13:29)
[2018-08-06] MEDS: Docusate Sodium 100 MG Cap PO SCH ×2 (13:29→20:06)
[2018-08-06] MEDS: FLUoxetine 20 MG Cap PO SCH (13:30)
[2018-08-06] MEDS: Multivitamins,Therapeutic Tab PO SCH (13:30)
[2018-08-06] MEDS: Cholecalciferol (Vitamin D3) 5,000 UNIT Tab PO SCH (13:30)
[2018-08-06] MEDS: Magnesium Oxide 400 MG Tab PO SCH (13:30)
[2018-08-06] MEDS: buPROPion 150 MG Tab.ER PO SCH (13:30)
[2018-08-06] MEDS: Pantoprazole 40 MG Tab.CR PO SCH (13:30)
[2018-08-06] MEDS: Dicyclomine 10 MG Cap PO PRN (13:33)
[2018-08-06] MEDS: ceFAZolin 2 GM in Premix Bag 1 BAG IV SCH ×2 (14:01→23:04)
[2018-08-06] MEDS ORDERED: DIVALPROEX SODIUM 500 MG PO ONE (15:15)
[2018-08-06] MEDS ORDERED: Divalproex Sodium 500 MG Tab.ER ONE (15:15)
--- NOTE | 2018-08-06 16:06 | CR ---
Right femur: AP and lateral views of the right femur were obtained. Study obtained utilizing portable technique. Femoral shaft fracture is again seen. Intramedullary selam is identified. Skin brie are present. Soft tissue air is noted from the surgical procedure. Impression: 1. Intramedullary selam fixing previous fracture. Other incidental findings. Diagnostic code #2
--- NOTE | 2018-08-06 18:10 | PCM.SURGPN ---
- General Info Date of Service: 08/05/18 POD#: 1 Functional Status: Reports: Other (Pt with fall last evening and complaints at right groin. Pain controlled.) - Patient Data Vitals - Most Recent: Last Vital Signs Temp 98.6 F 08/06/18 16:08 Pulse 90 08/06/18 16:08 Resp 18 08/06/18 16:08 BP 142/62 H 08/06/18 16:08 Pulse Ox 98 08/06/18 16:08 Weight - Most Recent: 169 lb 4.8 oz I&O - Last 24 Hours: Intake & Output 08/06/18 08/06/18 08/06/18 06:59 14:59 22:59 Intake Total 1958 640 560 Output Total 1200 50 950 Balance 758 590 -390 Lab Results Last 24 Hrs: Laboratory Results - last 24 hr 08/05/18 08/06/18 08/06/18 Range/Units 20:33 05:42 05:42 WBC 4.42 (3.98-10.04) K/mm3 RBC 3.16 L (3.98-5.22) M/mm3 Hgb 8.4 L (11.2-15.7) gm/L Hct 26.6 L (34.1-44.9) % MCV 84.2 (79.4-94.8) fl MCH 26.6 (25.6-32.2) pg MCHC 31.6 L (32.2-35.5) g/dl RDW Std Deviation 50.2 H (36.4-46.3) fL Plt Count 156 L (182-369) K/mm3 MPV 11.8 (9.4-12.3) fl Neut % (Auto) 38.1 (34.0-71.1) % Lymph % (Auto) 46.4 (19.3-51.7) % [place] % (Auto) 13.3 H (4.7-12.5) % Eos % (Auto) 1.8 (0.7-5.8) Baso % (Auto) 0.2 (0.1-1.2) % Neut # (Auto) 1.68 (1.56-6.13) K/mm3 Lymph # (Auto) 2.05 (1.18-3.74) K/mm3 [place] # (Auto) 0.59 H (0.24-0.36) K/mm3 Eos # (Auto) 0.08 (0.04-0.36) K/mm3 Baso # (Auto) 0.01 (0.01-0.08) K/mm3 Sodium 138 141 (136-145) mEq/L Potassium 4.0 4.5 (3.5-5.1) mEq/L Chloride 105 108 H (98-107) mEq/L Carbon Dioxide 25 26 (21-32) mEq/L Anion Gap 12.0 11.5 (5-15) BUN 23 H 18 (7-18) mg/dL Creatinine 1.6 H 1.1 H (0.55-1.02) mg/dL Est Cr Clr Drug Dosing 32.85 47.78 mL/min Estimated GFR (MDRD) 33 52 (>60) mL/min BUN/Creatinine Ratio 14.4 16.4 (14-18) Glucose 112 H 97 (74-106) mg/dL Calcium 8.0 L 8.1 L (8.5-10.1) mg/dL Magnesium 1.9 (1.8-2.4) mg/dl Med Orders - Current: Current Medications Bisacodyl (Dulcolax) 5 mg PO DAILY PRN PRN Reason: Constipation Bupropion HCl (Wellbutrin Xl) 450 mg PO DAILY [facility] Last Admin: 08/06/18 13:30 Dose: 450 mg Cholecalciferol (Vitamin D3) 5,000 unit PO DAILY [facility] Last Admin: 08/06/18 13:30 Dose: 5,000 unit Cyclobenzaprine HCl (Flexeril) 10 mg PO TID PRN PRN Reason: Spasms Last Admin: 08/05/18 20:23 Dose: 10 mg Dicyclomine HCl (Bentyl) 20 mg PO QID PRN PRN Reason: Pain Last Admin: 08/06/18 13:33 Dose: 20 mg Docusate Sodium (Colace) 100 mg PO BID [facility] Last Admin: 08/06/18 13:29 Dose: 100 mg Doxycycline Hyclate (Vibramycin) 100 mg PO DAILY [facility] Last Admin: 08/06/18 13:17 Dose: Not Given Fluoxetine HCl (Prozac) 20 mg PO DAILY [facility] Last Admin: 08/06/18 13:30 Dose: 20 mg Hydromorphone HCl (Dilaudid) 0.2 mg IVPUSH Q2H PRN PRN Reason: Pain Last Admin: 08/06/18 06:36 Dose: 0.2 mg Cefazolin Sodium/Dextrose 2 gm (/ Premix) 50 mls @ 100 mls/hr IV Q8H [facility] Stop: 08/07/18 07:29 Last Admin: 08/06/18 14:01 Dose: 100 mls/hr Ketorolac Tromethamine (Toradol) 15 mg IVPUSH Q6H PRN PRN Reason: Pain Magnesium Hydroxide (Milk Of Magnesia) 30 ml PO BID PRN PRN Reason: Constipation Magnesium Oxide (Magnesium Oxide) 400 mg PO DAILY [facility] Last Admin: 08/06/18 13:30 Dose: 400 mg Miscellaneous Information (Remove Patch) 1 ea TRDERM DAILY [facility] Last Admin: 08/06/18 13:24 Dose: 1 ea Miscellaneous Information (Remove Patch) 0 ea TRDERM ONETIME ONE Stop: 08/07/18 10:31 Multivitamins (Thera) 1 each PO DAILY [facility] Last Admin: 08/06/18 13:30 Dose: 1 each Naloxone HCl (Narcan) 0.1 mg IVPUSH Q5M PRN PRN Reason: Oversedation Nicotine (Habitrol) 21 mg TRDERM DAILY [facility] Last Admin: 08/06/18 13:29 Dose: 21 mg Ondansetron HCl (Zofran) 4 mg IVPUSH Q6H PRN PRN Reason: Nausea/Vomiting Oxycodone/Acetaminophen (Percocet 325-5 Mg) 1 - 2 tab PO Q4H PRN PRN Reason: Pain Last Admin: 08/06/18 15:59 Dose: 2 tab Pantoprazole Sodium (Protonix) 40 mg PO DAILY@0700 [facility] Last Admin: 08/06/18 13:30 Dose: 40 mg Loratadine/ (Pseudoephedrine) 0 each PO DAILY [facility] Last Admin: 08/06/18 13:24 Dose: Not Given Divalproex Sodium (500 Mg Tab.Er) 0 each PO DAILY [facility] Senna (Senna) 8.6 mg PO BID PRN PRN Reason: Constipation Discontinued Medications Acetaminophen (Tylenol) 975 mg PO ONETIME [facility] Stop: 08/04/18 12:00 Last Admin: 08/04/18 10:27 Dose: 975 mg Bupivacaine HCl (Marcaine 0.25%) Confirm Administered Dose 30 ml .ROUTE .STK- MED ONE Stop: 08/04/18 10:01 Last Admin: 08/04/18 13:27 Dose: 30 ml Bupivacaine HCl (Marcaine 0.25%) Confirm Administered Dose 30 ml .ROUTE .STK- MED ONE Stop: 08/06/18 06:30 Last Admin: 08/06/18 08:31 Dose: 30 ml Cefazolin Sodium (Ancef) Confirm Administered Dose 2 gm .ROUTE .STK-MED ONE Stop: 08/04/18 10:00 Last Admin: 08/04/18 13:22 Dose: 2 gm Cefazolin Sodium (Ancef) Confirm Administered Dose 2 gm .ROUTE .STK-MED ONE Stop: 08/04/18 10:58 Cefazolin Sodium (Ancef) Confirm Administered Dose 2 gm .ROUTE .STK-MED ONE Stop: 08/06/18 06:29 Last Admin: 08/06/18 08:25 Dose: 2 gm Cefazolin Sodium (Ancef) Confirm Administered Dose 2 gm .ROUTE .STK-MED ONE Stop: 08/06/18 06:37 Morphine Sulfate 8 mg/Epinephrine HCl 0.3 mg/Cefuroxime Sodium 750 mg/Ketorolac Tromethamine 30 mg/Sodium Chloride 27.9 ml 0 mg .XX ONETIME ONE Stop: 08/04/18 12:01 Last Admin: 08/04/18 15:29 Dose: Not Given Diphenhydramine HCl (Benadryl) 25 mg IVPUSH Q6H PRN PRN Reason: itching Stop: 08/04/18 16:00 Divalproex Sodium (Depakote) 500 mg PO DAILY [facility] Last Admin: 08/05/18 09:01 Dose: 500 mg Epinephrine HCl (Adrenalin) Confirm Administered Dose 1 mg .ROUTE .STK-MED ONE Stop: 08/04/18 07:54 Fentanyl (Sublimaze) Confirm Administered Dose 100 mcg .ROUTE .STK-MED ONE Stop: 08/04/18 10:58 Fentanyl (Sublimaze) 50 mcg IVPUSH Q5M PRN PRN Reason: pain Stop: 08/04/18 16:00 Fentanyl (Sublimaze) Confirm Administered Dose 250 mcg .ROUTE .STK-MED ONE Stop: 08/06/18 06:37 Fentanyl (Sublimaze) Confirm Administered Dose 100 mcg .ROUTE .STK-MED ONE Stop: 08/06/18 08:12 Fentanyl (Sublimaze) 50 mcg IVPUSH Q5M PRN PRN Reason: Pain Stop: 08/06/18 12:00 Last Admin: 08/06/18 09:57 Dose: 50 mcg Hydromorphone HCl (Dilaudid) 0.2 mg IVPUSH Q2H PRN PRN Reason: Pain Hydromorphone HCl (Dilaudid) Confirm Administered Dose 0.5 mg .ROUTE .STK-MED ONE Stop: 08/06/18 08:09 Hydromorphone HCl (Dilaudid) Confirm Administered Dose 0.5 mg .ROUTE .STK-MED ONE Stop: 08/06/18 08:10 Hydromorphone HCl (Dilaudid) 0.5 mg IVPUSH Q10M PRN PRN Reason: Pain (severe 7-10) Stop: 08/06/18 12:00 Lactated Ringer's (Ringers, Lactated) 1,000 mls @ 125 mls/hr IV ASDIRECTED [facility] Stop: 08/04/18 23:00 Last Admin: 08/04/18 10:10 Dose: 125 mls/hr Cefazolin Sodium/Dextrose 2 gm (/ Premix) 50 mls @ 100 mls/hr IV Q8H [facility] Stop: 08/05/18 10:29 Last Admin: 08/05/18 11:10 Dose: 100 mls/hr Lactated Ringer's (Ringers, Lactated) Confirm Administered Dose 1,000 mls @ as directed .ROUTE .STK-MED ONE Stop: 08/04/18 13:10 Sodium Chloride (Normal Saline) 500 mls @ 20 drops/min IV .BOLUS ONE Stop: 08/05/18 14:10 Last Admin: 08/05/18 08:55 Dose: 999 drops/min Sodium Chloride (Normal Saline) 1,000 mls @ 100 mls/hr IV ASDIRECTED [facility] Last Admin: 08/05/18 23:26 Dose: 100 mls/hr Lactated Ringer's (Ringers, Lactated) Confirm Administered Dose 1,000 mls @ as directed .ROUTE .STK-MED ONE Stop: 08/06/18 10:50 Lactated Ringer's (Ringers, Lactated) Confirm Administered Dose 1,000 mls @ as directed .ROUTE .STK-MED ONE Stop: 08/06/18 10:50 Iodine (Iodine 2% Mild Tincture) Confirm Administered Dose 30 ml .ROUTE .STK- MED ONE Stop: 08/04/18 10:01 Last Admin: 08/04/18 13:20 Dose: 18 ml Iodine (Iodine 2% Mild Tincture) Confirm Administered Dose 30 ml .ROUTE .STK- MED ONE Stop: 08/06/18 06:30 Last Admin: 08/06/18 08:17 Dose: 18 ml Ketorolac Tromethamine (Toradol) 15 mg IVPUSH Q6H PRN PRN Reason: Pain Last Admin: 08/05/18 07:11 Dose: 15 mg Ketorolac Tromethamine (Toradol) 30 mg IVPUSH ONETIME PRN PRN Reason: Pain Stop: 08/06/18 12:00 Lidocaine/Sodium Bicarbonate (Buffered Lidocaine 1% In Ns 8.4%) 0.25 ml IDERM ONETIME PRN PRN Reason: Prior to IV Start Stop: 08/04/18 18:00 Last Admin: 08/04/18 10:10 Dose: 0.25 ml Metoclopramide HCl (Reglan) 10 mg IVPUSH ONETIME PRN PRN Reason: Nausea/Vomiting Stop: 08/04/18 17:00 Midazolam HCl (Versed 1 Mg/Ml) Confirm Administered Dose 2 mg .ROUTE .STK-MED ONE Stop: 08/04/18 10:58 Midazolam HCl (Versed 1 Mg/Ml) Confirm Administered Dose 2 mg .ROUTE .STK-MED ONE Stop: 08/06/18 06:37 Morphine Sulfate (Morphine) 2 mg IVPUSH Q2H PRN PRN Reason: Breakthrough Pain Non-Formulary Medication (Ondansetron) 4 mg PO Q8H PRN PRN Reason: Nausea/Vomiting Ondansetron HCl (Zofran) 4 mg IVPUSH ONETIME PRN PRN Reason: Nausea/Vomiting Stop: 08/04/18 18:00 Ondansetron HCl (Zofran) Confirm Administered Dose 4 mg .ROUTE .STK-MED ONE Stop: 08/06/18 06:36 Oxycodone HCl (Oxycontin) 10 mg PO ONETIME [facility] Stop: 08/04/18 12:00 Last Admin: 08/04/18 10:27 Dose: 10 mg Divalproex Sodium (500 Mg Tab.Er) 0 each PO DAILY [facility] Last Admin: 08/06/18 13:59 Dose: Not Given Divalproex Sodium (500 Mg Tab.Er Ptom) 0 each PO ONETIME ONE Stop: 08/06/18 15:16 Last Admin: 08/06/18 16:01 Dose: 1 each Pregabalin (Lyrica) 50 mg PO ONETIME [facility] Stop: 08/04/18 12:00 Last Admin: 08/04/18 10:27 Dose: 50 mg Propofol (Diprivan 20 Ml) Confirm Administered Dose 600 mg .ROUTE .STK-MED ONE Stop: 08/04/18 10:56 Propofol (Diprivan 20 Ml) Confirm Administered Dose 200 mg .ROUTE .STK-MED ONE Stop: 08/06/18 06:37 Rivaroxaban (Xarelto) 10 mg PO DAILY [facility] Rocuronium [place] (Zemuron) Confirm Administered Dose 50 mg .ROUTE .STK-MED ONE Stop: 08/06/18 06:36 Ropivacaine (Naropin 0.5%) Confirm Administered Dose 30 ml .ROUTE .STK-MED ONE Stop: 08/04/18 07:54 Scopolamine (Transderm-Scop) 1.5 mg TRDERM ONETIME [facility] Last Admin: 08/04/18 10:27 Dose: 1.5 mg Sodium Chloride (Saline Flush) 10 ml FLUSH ASDIRECTED PRN PRN Reason: Keep Vein Open Stop: 08/04/18 18:00 Tranexamic Acid (Cyklokapron) Confirm Administered Dose 1,000 mg .ROUTE .STK- MED ONE Stop: 08/04/18 10:00 Last Admin: 08/04/18 13:35 Dose: 1,000 mg Tranexamic Acid (Cyklokapron) Confirm Administered Dose 1,000 mg .ROUTE .STK- MED ONE Stop: 08/06/18 06:29 Last Admin: 08/06/18 08:34 Dose: 1,000 mg Vancomycin HCl (Vancomycin) Confirm Administered Dose 1 gm .ROUTE .STK-MED ONE Stop: 08/04/18 10:00 Last Admin: 08/04/18 13:30 Dose: 1 gm Vancomycin HCl (Vancomycin) Confirm Administered Dose 1 gm .ROUTE .STK-MED ONE Stop: 08/06/18 06:31 Last Admin: 08/06/18 08:33 Dose: 1 gm - Exam Wound/Incisions: Dressing Dry and Intact General: Alert, Cooperative, No Acute Distress Lungs: Normal Respiratory Effort Extremities: Other (Tender right thigh. Active right knee motion noted. Able to sense light touch at right foot/ankle. Aaron's sign negative RLE.) - Problem List Review Problem List Initiated/Reviewed/Updated: Yes - My Orders Last 24 Hours: Active Orders 24 hr Category Date Time Status Communication Order [RC] ROUTINE Care 08/06/18 09:12 Active Cooling Warming Measures [RC] ASDIRECTED Care 08/06/18 09:12 Inactive DC [place] Catheter [Urinary Catheter Removal] [RC] 0700 Care 08/07/18 07:00 Active Notify Provider [RC] ASDIRECTED Care 08/06/18 09:12 Active Pulse Oximetry [RC] ASDIRECTED Care 08/06/18 09:12 Active Consult to Occupational Therapy [OT Evaluation and Cons 08/06/18 14:47 Active Treatment] [CONS] Routine PT Evaluation and Treatment [CONS] Routine Cons 08/06/18 14:47 Active Regular Diet [DIET] Diet 08/06/18 Lunch Active CBC WITH AUTO DIFF [HEME] AM Lab 08/07/18 05:11 Ordered CBC WITH AUTO DIFF [HEME] AM Lab 08/08/18 05:11 Ordered CBC WITH AUTO DIFF [HEME] AM Lab 08/09/18 05:11 Ordered COMPREHENSIVE METABOLIC PN,CMP [CHEM] AM Lab 08/07/18 07:00 Ordered MAGNESIUM [CHEM] AM Lab 08/07/18 05:11 Ordered MAGNESIUM [CHEM] AM Lab 08/08/18 05:11 Ordered MAGNESIUM [CHEM] AM Lab 08/09/18 05:11 Ordered Ketorolac [Toradol] Med 08/06/18 06:56 Active 15 mg IVPUSH Q6H PRN Patient's Own Medication [Ptom] Med 08/07/18 09:00 Active 0 each PO DAILY Remove Patch Med 08/07/18 10:30 Once 0 ea TRDERM ONETIME ONE ceFAZolin [Ancef] 2 gm Med 08/06/18 15:00 Active Premix Bag 1 bag IV Q8H Schedule Procedure [COMM] Routine Oth 08/06/18 07:30 Ordered Weight bearing status [OM.PC] Routine Oth 08/06/18 11:28 Ordered Weight bearing status [OM.PC] Routine Oth 08/06/18 11:35 Ordered Medication Orders Bisacodyl (Dulcolax) 5 mg PO DAILY PRN PRN Reason: Constipation Bupropion HCl (Wellbutrin Xl) 450 mg PO DAILY [facility] Last Admin: 08/06/18 13:30 Dose: 450 mg Admin: 08/05/18 09:03 Dose: 450 mg Cholecalciferol (Vitamin D3) 5,000 unit PO DAILY [facility] Last Admin: 08/06/18 13:30 Dose: 5,000 unit Admin: 08/05/18 09:01 Dose: 5,000 unit Cyclobenzaprine HCl (Flexeril) 10 mg PO TID PRN PRN Reason: Spasms Last Admin: 08/05/18 20:23 Dose: 10 mg Admin: 08/05/18 07:10 Dose: 10 mg Admin: 08/04/18 20:20 Dose: 10 mg Dicyclomine HCl (Bentyl) 20 mg PO QID PRN PRN Reason: Pain Last Admin: 08/06/18 13:33 Dose: 20 mg Admin: 08/05/18 20:23 Dose: 20 mg Docusate Sodium (Colace) 100 mg PO BID [facility] Last Admin: 08/06/18 13:29 Dose: 100 mg Admin: 08/05/18 20:24 Dose: 100 mg Admin: 08/05/18 09:01 Dose: 100 mg Admin: 08/04/18 20:20 Dose: 100 mg Doxycycline Hyclate (Vibramycin) 100 mg PO DAILY [facility] Last Admin: 08/06/18 13:17 Dose: Admin: 08/05/18 09:03 Dose: 100 mg Fluoxetine HCl (Prozac) 20 mg PO DAILY [facility] Last Admin: 08/06/18 13:30 Dose: 20 mg Admin: 08/05/18 09:01 Dose: 20 mg Hydromorphone HCl (Dilaudid) 0.2 mg IVPUSH Q2H PRN PRN Reason: Pain Last Admin: 08/06/18 06:36 Dose: 0.2 mg Admin: 08/06/18 04:32 Dose: 0.2 mg Admin: 08/06/18 02:20 Dose: 0.2 mg Admin: 08/04/18 20:13 Dose: 0.2 mg Cefazolin Sodium/Dextrose 2 gm (/ Premix) 50 mls @ 100 mls/hr IV Q8H [facility] Stop: 08/07/18 07:29 Last Admin: 08/06/18 14:01 Dose: 100 mls/hr Ketorolac Tromethamine (Toradol) 15 mg IVPUSH Q6H PRN PRN Reason: Pain Magnesium Hydroxide (Milk Of Magnesia) 30 ml PO BID PRN PRN Reason: Constipation Magnesium Oxide (Magnesium Oxide) 400 mg PO DAILY [facility] Last Admin: 08/06/18 13:30 Dose: 400 mg Admin: 08/05/18 09:02 Dose: 400 mg Miscellaneous Information (Remove Patch) 1 ea TRDERM DAILY [facility] Last Admin: 08/06/18 13:24 Dose: 1 ea Admin: 08/05/18 09:06 Dose: 1 ea Miscellaneous Information (Remove Patch) 0 ea TRDERM ONETIME ONE Stop: 08/07/18 10:31 Multivitamins (Thera) 1 each PO DAILY [facility] Last Admin: 08/06/18 13:30 Dose: 1 each Admin: 08/05/18 09:03 Dose: 1 each Naloxone HCl (Narcan) 0.1 mg IVPUSH Q5M PRN PRN Reason: Oversedation Nicotine (Habitrol) 21 mg TRDERM DAILY [facility] Last Admin: 08/06/18 13:29 Dose: 21 mg Admin: 08/05/18 09:06 Dose: 21 mg Admin: 08/04/18 17:31 Dose: 21 mg Ondansetron HCl (Zofran) 4 mg IVPUSH Q6H PRN PRN Reason: Nausea/Vomiting Oxycodone/Acetaminophen (Percocet 325-5 Mg) 1 - 2 tab PO Q4H PRN PRN Reason: Pain Last Admin: 08/06/18 15:59 Dose: 2 tab Admin: 08/06/18 10:39 Dose: 2 tab Admin: 08/05/18 22:38 Dose: 2 tab Admin: 08/05/18 17:53 Dose: 2 tab Admin: 03/26/19 13:34 Dose: 2 tab Admin: 08/05/18 09:03 Dose: 2 tab Admin: 08/05/18 03:57 Dose: 2 tab Admin: 08/04/18 17:31 Dose: 2 tab Pantoprazole Sodium (Protonix) 40 mg PO DAILY@0700 [facility] Last Admin: 08/06/18 13:30 Dose: 40 mg Admin: 08/05/18 07:07 Dose: 40 mg Loratadine/ (Pseudoephedrine) 0 each PO DAILY [facility] Last Admin: 08/06/18 13:24 Dose: Admin: 08/05/18 09:06 Dose: Divalproex Sodium (500 Mg Tab.Er) 0 each PO DAILY [facility] Senna (Senna) 8.6 mg PO BID PRN PRN Reason: Constipation - Assessment Assessment (Free Text/Narrative):: POD#1 - right TKA - Plan Plan (Free Text/Narrative):: 1. Fall when ambulating to bathroom. Xray of femur obtained and femoral fx noted. The pt was evaluated by Dr. Patel and decision made for IM selam placement tomorrow morning. The risks, benefits, goals, alternatives to the procedure were discussed with the pt by Dr. Patel and the pt consents to proceed with procedure tomorrow. Xarelto will be held at this time. NPO after midnight. Bedrest today. 2. Hospitalist consult due to increase in creat and hyperkalemia noted, as well as eval prior to procedure tomorrow. The pt was evaluated by Dr. Patel on 08-05-2018.
--- NOTE | 2018-08-06 18:13 | PCM.SURGPN ---
- General Info Date of Service: 08/06/18 POD#: 2 Functional Status: Reports: Other (The pt reports numbness noted at RLE "from knee down".) - Patient Data Vitals - Most Recent: Last Vital Signs Temp 98.6 F 08/06/18 16:08 Pulse 90 08/06/18 16:08 Resp 18 08/06/18 16:08 BP 142/62 H 08/06/18 16:08 Pulse Ox 98 08/06/18 16:08 Weight - Most Recent: 169 lb 4.8 oz I&O - Last 24 Hours: Intake & Output 08/06/18 08/06/18 08/06/18 06:59 14:59 22:59 Intake Total 1958 640 560 Output Total 1200 50 950 Balance 758 590 -390 Lab Results Last 24 Hrs: Laboratory Results - last 24 hr 08/05/18 08/06/18 08/06/18 Range/Units 20:33 05:42 05:42 WBC 4.42 (3.98-10.04) K/mm3 RBC 3.16 L (3.98-5.22) M/mm3 Hgb 8.4 L (11.2-15.7) gm/L Hct 26.6 L (34.1-44.9) % MCV 84.2 (79.4-94.8) fl MCH 26.6 (25.6-32.2) pg MCHC 31.6 L (32.2-35.5) g/dl RDW Std Deviation 50.2 H (36.4-46.3) fL Plt Count 156 L (182-369) K/mm3 MPV 11.8 (9.4-12.3) fl Neut % (Auto) 38.1 (34.0-71.1) % Lymph % (Auto) 46.4 (19.3-51.7) % [place] % (Auto) 13.3 H (4.7-12.5) % Eos % (Auto) 1.8 (0.7-5.8) Baso % (Auto) 0.2 (0.1-1.2) % Neut # (Auto) 1.68 (1.56-6.13) K/mm3 Lymph # (Auto) 2.05 (1.18-3.74) K/mm3 [place] # (Auto) 0.59 H (0.24-0.36) K/mm3 Eos # (Auto) 0.08 (0.04-0.36) K/mm3 Baso # (Auto) 0.01 (0.01-0.08) K/mm3 Sodium 138 141 (136-145) mEq/L Potassium 4.0 4.5 (3.5-5.1) mEq/L Chloride 105 108 H (98-107) mEq/L Carbon Dioxide 25 26 (21-32) mEq/L Anion Gap 12.0 11.5 (5-15) BUN 23 H 18 (7-18) mg/dL Creatinine 1.6 H 1.1 H (0.55-1.02) mg/dL Est Cr Clr Drug Dosing 32.85 47.78 mL/min Estimated GFR (MDRD) 33 52 (>60) mL/min BUN/Creatinine Ratio 14.4 16.4 (14-18) Glucose 112 H 97 (74-106) mg/dL Calcium 8.0 L 8.1 L (8.5-10.1) mg/dL Magnesium 1.9 (1.8-2.4) mg/dl Med Orders - Current: Current Medications Bisacodyl (Dulcolax) 5 mg PO DAILY PRN PRN Reason: Constipation Bupropion HCl (Wellbutrin Xl) 450 mg PO DAILY [facility] Last Admin: 08/06/18 13:30 Dose: 450 mg Cholecalciferol (Vitamin D3) 5,000 unit PO DAILY [facility] Last Admin: 08/06/18 13:30 Dose: 5,000 unit Cyclobenzaprine HCl (Flexeril) 10 mg PO TID PRN PRN Reason: Spasms Last Admin: 08/05/18 20:23 Dose: 10 mg Dicyclomine HCl (Bentyl) 20 mg PO QID PRN PRN Reason: Pain Last Admin: 08/06/18 13:33 Dose: 20 mg Docusate Sodium (Colace) 100 mg PO BID [facility] Last Admin: 08/06/18 13:29 Dose: 100 mg Doxycycline Hyclate (Vibramycin) 100 mg PO DAILY [facility] Last Admin: 08/06/18 13:17 Dose: Not Given Fluoxetine HCl (Prozac) 20 mg PO DAILY [facility] Last Admin: 08/06/18 13:30 Dose: 20 mg Hydromorphone HCl (Dilaudid) 0.2 mg IVPUSH Q2H PRN PRN Reason: Pain Last Admin: 08/06/18 06:36 Dose: 0.2 mg Cefazolin Sodium/Dextrose 2 gm (/ Premix) 50 mls @ 100 mls/hr IV Q8H [facility] Stop: 08/07/18 07:29 Last Admin: 08/06/18 14:01 Dose: 100 mls/hr Ketorolac Tromethamine (Toradol) 15 mg IVPUSH Q6H PRN PRN Reason: Pain Magnesium Hydroxide (Milk Of Magnesia) 30 ml PO BID PRN PRN Reason: Constipation Magnesium Oxide (Magnesium Oxide) 400 mg PO DAILY [facility] Last Admin: 08/06/18 13:30 Dose: 400 mg Miscellaneous Information (Remove Patch) 1 ea TRDERM DAILY [facility] Last Admin: 08/06/18 13:24 Dose: 1 ea Miscellaneous Information (Remove Patch) 0 ea TRDERM ONETIME ONE Stop: 08/07/18 10:31 Multivitamins (Thera) 1 each PO DAILY [facility] Last Admin: 08/06/18 13:30 Dose: 1 each Naloxone HCl (Narcan) 0.1 mg IVPUSH Q5M PRN PRN Reason: Oversedation Nicotine (Habitrol) 21 mg TRDERM DAILY [facility] Last Admin: 08/06/18 13:29 Dose: 21 mg Ondansetron HCl (Zofran) 4 mg IVPUSH Q6H PRN PRN Reason: Nausea/Vomiting Oxycodone/Acetaminophen (Percocet 325-5 Mg) 1 - 2 tab PO Q4H PRN PRN Reason: Pain Last Admin: 08/06/18 15:59 Dose: 2 tab Pantoprazole Sodium (Protonix) 40 mg PO DAILY@0700 [facility] Last Admin: 08/06/18 13:30 Dose: 40 mg Loratadine/ (Pseudoephedrine) 0 each PO DAILY [facility] Last Admin: 08/06/18 13:24 Dose: Not Given Divalproex Sodium (500 Mg Tab.Er) 0 each PO DAILY [facility] Senna (Senna) 8.6 mg PO BID PRN PRN Reason: Constipation Discontinued Medications Acetaminophen (Tylenol) 975 mg PO ONETIME [facility] Stop: 08/04/18 12:00 Last Admin: 08/04/18 10:27 Dose: 975 mg Bupivacaine HCl (Marcaine 0.25%) Confirm Administered Dose 30 ml .ROUTE .STK- MED ONE Stop: 08/04/18 10:01 Last Admin: 08/04/18 13:27 Dose: 30 ml Bupivacaine HCl (Marcaine 0.25%) Confirm Administered Dose 30 ml .ROUTE .STK- MED ONE Stop: 08/06/18 06:30 Last Admin: 08/06/18 08:31 Dose: 30 ml Cefazolin Sodium (Ancef) Confirm Administered Dose 2 gm .ROUTE .STK-MED ONE Stop: 08/04/18 10:00 Last Admin: 08/04/18 13:22 Dose: 2 gm Cefazolin Sodium (Ancef) Confirm Administered Dose 2 gm .ROUTE .STK-MED ONE Stop: 08/04/18 10:58 Cefazolin Sodium (Ancef) Confirm Administered Dose 2 gm .ROUTE .STK-MED ONE Stop: 08/06/18 06:29 Last Admin: 08/06/18 08:25 Dose: 2 gm Cefazolin Sodium (Ancef) Confirm Administered Dose 2 gm .ROUTE .STK-MED ONE Stop: 08/06/18 06:37 Morphine Sulfate 8 mg/Epinephrine HCl 0.3 mg/Cefuroxime Sodium 750 mg/Ketorolac Tromethamine 30 mg/Sodium Chloride 27.9 ml 0 mg .XX ONETIME ONE Stop: 08/04/18 12:01 Last Admin: 08/04/18 15:29 Dose: Not Given Diphenhydramine HCl (Benadryl) 25 mg IVPUSH Q6H PRN PRN Reason: itching Stop: 08/04/18 16:00 Divalproex Sodium (Depakote) 500 mg PO DAILY [facility] Last Admin: 08/05/18 09:01 Dose: 500 mg Epinephrine HCl (Adrenalin) Confirm Administered Dose 1 mg .ROUTE .STK-MED ONE Stop: 08/04/18 07:54 Fentanyl (Sublimaze) Confirm Administered Dose 100 mcg .ROUTE .STK-MED ONE Stop: 08/04/18 10:58 Fentanyl (Sublimaze) 50 mcg IVPUSH Q5M PRN PRN Reason: pain Stop: 08/04/18 16:00 Fentanyl (Sublimaze) Confirm Administered Dose 250 mcg .ROUTE .STK-MED ONE Stop: 08/06/18 06:37 Fentanyl (Sublimaze) Confirm Administered Dose 100 mcg .ROUTE .STK-MED ONE Stop: 08/06/18 08:12 Fentanyl (Sublimaze) 50 mcg IVPUSH Q5M PRN PRN Reason: Pain Stop: 08/06/18 12:00 Last Admin: 08/06/18 09:57 Dose: 50 mcg Hydromorphone HCl (Dilaudid) 0.2 mg IVPUSH Q2H PRN PRN Reason: Pain Hydromorphone HCl (Dilaudid) Confirm Administered Dose 0.5 mg .ROUTE .STK-MED ONE Stop: 08/06/18 08:09 Hydromorphone HCl (Dilaudid) Confirm Administered Dose 0.5 mg .ROUTE .STK-MED ONE Stop: 08/06/18 08:10 Hydromorphone HCl (Dilaudid) 0.5 mg IVPUSH Q10M PRN PRN Reason: Pain (severe 7-10) Stop: 08/06/18 12:00 Lactated Ringer's (Ringers, Lactated) 1,000 mls @ 125 mls/hr IV ASDIRECTED [facility] Stop: 08/04/18 23:00 Last Admin: 08/04/18 10:10 Dose: 125 mls/hr Cefazolin Sodium/Dextrose 2 gm (/ Premix) 50 mls @ 100 mls/hr IV Q8H [facility] Stop: 08/05/18 10:29 Last Admin: 08/05/18 11:10 Dose: 100 mls/hr Lactated Ringer's (Ringers, Lactated) Confirm Administered Dose 1,000 mls @ as directed .ROUTE .STK-MED ONE Stop: 08/04/18 13:10 Sodium Chloride (Normal Saline) 500 mls @ 20 drops/min IV .BOLUS ONE Stop: 08/05/18 14:10 Last Admin: 08/05/18 08:55 Dose: 999 drops/min Sodium Chloride (Normal Saline) 1,000 mls @ 100 mls/hr IV ASDIRECTED [facility] Last Admin: 08/05/18 23:26 Dose: 100 mls/hr Lactated Ringer's (Ringers, Lactated) Confirm Administered Dose 1,000 mls @ as directed .ROUTE .STK-MED ONE Stop: 08/06/18 10:50 Lactated Ringer's (Ringers, Lactated) Confirm Administered Dose 1,000 mls @ as directed .ROUTE .STK-MED ONE Stop: 08/06/18 10:50 Iodine (Iodine 2% Mild Tincture) Confirm Administered Dose 30 ml .ROUTE .STK- MED ONE Stop: 08/04/18 10:01 Last Admin: 08/04/18 13:20 Dose: 18 ml Iodine (Iodine 2% Mild Tincture) Confirm Administered Dose 30 ml .ROUTE .STK- MED ONE Stop: 08/06/18 06:30 Last Admin: 08/06/18 08:17 Dose: 18 ml Ketorolac Tromethamine (Toradol) 15 mg IVPUSH Q6H PRN PRN Reason: Pain Last Admin: 08/05/18 07:11 Dose: 15 mg Ketorolac Tromethamine (Toradol) 30 mg IVPUSH ONETIME PRN PRN Reason: Pain Stop: 08/06/18 12:00 Lidocaine/Sodium Bicarbonate (Buffered Lidocaine 1% In Ns 8.4%) 0.25 ml IDERM ONETIME PRN PRN Reason: Prior to IV Start Stop: 08/04/18 18:00 Last Admin: 08/04/18 10:10 Dose: 0.25 ml Metoclopramide HCl (Reglan) 10 mg IVPUSH ONETIME PRN PRN Reason: Nausea/Vomiting Stop: 08/04/18 17:00 Midazolam HCl (Versed 1 Mg/Ml) Confirm Administered Dose 2 mg .ROUTE .STK-MED ONE Stop: 08/04/18 10:58 Midazolam HCl (Versed 1 Mg/Ml) Confirm Administered Dose 2 mg .ROUTE .STK-MED ONE Stop: 08/06/18 06:37 Morphine Sulfate (Morphine) 2 mg IVPUSH Q2H PRN PRN Reason: Breakthrough Pain Non-Formulary Medication (Ondansetron) 4 mg PO Q8H PRN PRN Reason: Nausea/Vomiting Ondansetron HCl (Zofran) 4 mg IVPUSH ONETIME PRN PRN Reason: Nausea/Vomiting Stop: 08/04/18 18:00 Ondansetron HCl (Zofran) Confirm Administered Dose 4 mg .ROUTE .STK-MED ONE Stop: 08/06/18 06:36 Oxycodone HCl (Oxycontin) 10 mg PO ONETIME [facility] Stop: 08/04/18 12:00 Last Admin: 08/04/18 10:27 Dose: 10 mg Divalproex Sodium (500 Mg Tab.Er) 0 each PO DAILY [facility] Last Admin: 08/06/18 13:59 Dose: Not Given Divalproex Sodium (500 Mg Tab.Er Ptom) 0 each PO ONETIME ONE Stop: 08/06/18 15:16 Last Admin: 08/06/18 16:01 Dose: 1 each Pregabalin (Lyrica) 50 mg PO ONETIME [facility] Stop: 08/04/18 12:00 Last Admin: 08/04/18 10:27 Dose: 50 mg Propofol (Diprivan 20 Ml) Confirm Administered Dose 600 mg .ROUTE .STK-MED ONE Stop: 08/04/18 10:56 Propofol (Diprivan 20 Ml) Confirm Administered Dose 200 mg .ROUTE .STK-MED ONE Stop: 08/06/18 06:37 Rivaroxaban (Xarelto) 10 mg PO DAILY [facility] Rocuronium [place] (Zemuron) Confirm Administered Dose 50 mg .ROUTE .STK-MED ONE Stop: 08/06/18 06:36 Ropivacaine (Naropin 0.5%) Confirm Administered Dose 30 ml .ROUTE .STK-MED ONE Stop: 08/04/18 07:54 Scopolamine (Transderm-Scop) 1.5 mg TRDERM ONETIME [facility] Last Admin: 08/04/18 10:27 Dose: 1.5 mg Sodium Chloride (Saline Flush) 10 ml FLUSH ASDIRECTED PRN PRN Reason: Keep Vein Open Stop: 08/04/18 18:00 Tranexamic Acid (Cyklokapron) Confirm Administered Dose 1,000 mg .ROUTE .STK- MED ONE Stop: 08/04/18 10:00 Last Admin: 08/04/18 13:35 Dose: 1,000 mg Tranexamic Acid (Cyklokapron) Confirm Administered Dose 1,000 mg .ROUTE .STK- MED ONE Stop: 08/06/18 06:29 Last Admin: 08/06/18 08:34 Dose: 1,000 mg Vancomycin HCl (Vancomycin) Confirm Administered Dose 1 gm .ROUTE .STK-MED ONE Stop: 08/04/18 10:00 Last Admin: 08/04/18 13:30 Dose: 1 gm Vancomycin HCl (Vancomycin) Confirm Administered Dose 1 gm .ROUTE .STK-MED ONE Stop: 08/06/18 06:31 Last Admin: 08/06/18 08:33 Dose: 1 gm - Exam Wound/Incisions: Dressing Dry and Intact General: Alert, Cooperative, No Acute Distress Lungs: Normal Respiratory Effort Extremities: Other (Periph pulses and cap refill WNL for RLE. The pt was able to sense touch at RLE. Deformity noted at right thigh.) - Problem List Review Problem List Initiated/Reviewed/Updated: Yes - My Orders Last 24 Hours: Active Orders 24 hr Category Date Time Status Communication Order [RC] ROUTINE Care 08/06/18 09:12 Active Cooling Warming Measures [RC] ASDIRECTED Care 08/06/18 09:12 Inactive DC [place] Catheter [Urinary Catheter Removal] [RC] 0700 Care 08/07/18 07:00 Active Notify Provider [RC] ASDIRECTED Care 08/06/18 09:12 Active Pulse Oximetry [RC] ASDIRECTED Care 08/06/18 09:12 Active Consult to Occupational Therapy [OT Evaluation and Cons 08/06/18 14:47 Active Treatment] [CONS] Routine PT Evaluation and Treatment [CONS] Routine Cons 08/06/18 14:47 Active Regular Diet [DIET] Diet 08/06/18 Lunch Active CBC WITH AUTO DIFF [HEME] AM Lab 08/07/18 05:11 Ordered CBC WITH AUTO DIFF [HEME] AM Lab 08/08/18 05:11 Ordered CBC WITH AUTO DIFF [HEME] AM Lab 08/09/18 05:11 Ordered COMPREHENSIVE METABOLIC PN,CMP [CHEM] AM Lab 08/07/18 07:00 Ordered MAGNESIUM [CHEM] AM Lab 08/07/18 05:11 Ordered MAGNESIUM [CHEM] AM Lab 08/08/18 05:11 Ordered MAGNESIUM [CHEM] AM Lab 08/09/18 05:11 Ordered Ketorolac [Toradol] Med 08/06/18 06:56 Active 15 mg IVPUSH Q6H PRN Patient's Own Medication [Ptom] Med 08/07/18 09:00 Active 0 each PO DAILY Remove Patch Med 08/07/18 10:30 Once 0 ea TRDERM ONETIME ONE ceFAZolin [Ancef] 2 gm Med 08/06/18 15:00 Active Premix Bag 1 bag IV Q8H Schedule Procedure [COMM] Routine Oth 08/06/18 07:30 Ordered Weight bearing status [OM.PC] Routine Oth 08/06/18 11:28 Ordered Weight bearing status [OM.PC] Routine Oth 08/06/18 11:35 Ordered Medication Orders Bisacodyl (Dulcolax) 5 mg PO DAILY PRN PRN Reason: Constipation Bupropion HCl (Wellbutrin Xl) 450 mg PO DAILY [facility] Last Admin: 08/06/18 13:30 Dose: 450 mg Admin: 08/05/18 09:03 Dose: 450 mg Cholecalciferol (Vitamin D3) 5,000 unit PO DAILY [facility] Last Admin: 08/06/18 13:30 Dose: 5,000 unit Admin: 08/05/18 09:01 Dose: 5,000 unit Cyclobenzaprine HCl (Flexeril) 10 mg PO TID PRN PRN Reason: Spasms Last Admin: 08/05/18 20:23 Dose: 10 mg Admin: 08/05/18 07:10 Dose: 10 mg Admin: 08/04/18 20:20 Dose: 10 mg Dicyclomine HCl (Bentyl) 20 mg PO QID PRN PRN Reason: Pain Last Admin: 08/06/18 13:33 Dose: 20 mg Admin: 08/05/18 20:23 Dose: 20 mg Docusate Sodium (Colace) 100 mg PO BID [facility] Last Admin: 08/06/18 13:29 Dose: 100 mg Admin: 08/05/18 20:24 Dose: 100 mg Admin: 08/05/18 09:01 Dose: 100 mg Admin: 08/04/18 20:20 Dose: 100 mg Doxycycline Hyclate (Vibramycin) 100 mg PO DAILY [facility] Last Admin: 08/06/18 13:17 Dose: Admin: 08/05/18 09:03 Dose: 100 mg Fluoxetine HCl (Prozac) 20 mg PO DAILY [facility] Last Admin: 08/06/18 13:30 Dose: 20 mg Admin: 08/05/18 09:01 Dose: 20 mg Hydromorphone HCl (Dilaudid) 0.2 mg IVPUSH Q2H PRN PRN Reason: Pain Last Admin: 08/06/18 06:36 Dose: 0.2 mg Admin: 08/06/18 04:32 Dose: 0.2 mg Admin: 08/06/18 02:20 Dose: 0.2 mg Admin: 08/04/18 20:13 Dose: 0.2 mg Cefazolin Sodium/Dextrose 2 gm (/ Premix) 50 mls @ 100 mls/hr IV Q8H [facility] Stop: 08/07/18 07:29 Last Admin: 08/06/18 14:01 Dose: 100 mls/hr Ketorolac Tromethamine (Toradol) 15 mg IVPUSH Q6H PRN PRN Reason: Pain Magnesium Hydroxide (Milk Of Magnesia) 30 ml PO BID PRN PRN Reason: Constipation Magnesium Oxide (Magnesium Oxide) 400 mg PO DAILY [facility] Last Admin: 08/06/18 13:30 Dose: 400 mg Admin: 08/05/18 09:02 Dose: 400 mg Miscellaneous Information (Remove Patch) 1 ea TRDERM DAILY [facility] Last Admin: 08/06/18 13:24 Dose: 1 ea Admin: 08/05/18 09:06 Dose: 1 ea Miscellaneous Information (Remove Patch) 0 ea TRDERM ONETIME ONE Stop: 08/07/18 10:31 Multivitamins (Thera) 1 each PO DAILY [facility] Last Admin: 08/06/18 13:30 Dose: 1 each Admin: 08/05/18 09:03 Dose: 1 each Naloxone HCl (Narcan) 0.1 mg IVPUSH Q5M PRN PRN Reason: Oversedation Nicotine (Habitrol) 21 mg TRDERM DAILY [facility] Last Admin: 08/06/18 13:29 Dose: 21 mg Admin: 08/05/18 09:06 Dose: 21 mg Admin: 08/04/18 17:31 Dose: 21 mg Ondansetron HCl (Zofran) 4 mg IVPUSH Q6H PRN PRN Reason: Nausea/Vomiting Oxycodone/Acetaminophen (Percocet 325-5 Mg) 1 - 2 tab PO Q4H PRN PRN Reason: Pain Last Admin: 08/06/18 15:59 Dose: 2 tab Admin: 08/06/18 10:39 Dose: 2 tab Admin: 08/05/18 22:38 Dose: 2 tab Admin: 08/05/18 17:53 Dose: 2 tab Admin: 03/26/19 13:34 Dose: 2 tab Admin: 08/05/18 09:03 Dose: 2 tab Admin: 08/05/18 03:57 Dose: 2 tab Admin: 08/04/18 17:31 Dose: 2 tab Pantoprazole Sodium (Protonix) 40 mg PO DAILY@0700 [facility] Last Admin: 08/06/18 13:30 Dose: 40 mg Admin: 08/05/18 07:07 Dose: 40 mg Loratadine/ (Pseudoephedrine) 0 each PO DAILY [facility] Last Admin: 08/06/18 13:24 Dose: Admin: 08/05/18 09:06 Dose: Divalproex Sodium (500 Mg Tab.Er) 0 each PO DAILY [facility] Senna (Senna) 8.6 mg PO BID PRN PRN Reason: Constipation - Assessment Assessment (Free Text/Narrative):: POD#2 -right TKA; right femoral shaft fx - Plan Plan (Free Text/Narrative):: 1. IM selam placement for right femoral shaft fracture completed. 2. 50% weight bearing RLE s/p surgery today. 3. Resume Xarelto tomorrow. 4. PT and OT. 5. Medical management per Hospitalist service. 6. Likely d/c to long term or rehab center for continued rehabilitation. The pt was evaluated by Dr. Patel today.
[2018-08-06] MEDS: Cyclobenzaprine 10 MG Tab PO PRN (19:36)
[2018-08-06] MEDS: Ketorolac 15 MG/ML SDV IVPUSH PRN (20:15)
[2018-08-07] MEDS: Acetaminophen/oxyCODONE 325-5 MG Tab PO PRN ×4 (02:42→20:08)
[2018-08-07] MEDS: Ketorolac 15 MG/ML SDV IVPUSH PRN ×2 (02:44→15:54)
[2018-08-07] MEDS: Pantoprazole 40 MG Tab.CR PO SCH (07:04)
[2018-08-07] MEDS: ceFAZolin 2 GM in Premix Bag 1 BAG IV SCH (07:04)
[2018-08-07] MEDS ORDERED: Magnesium Sulfate/Water 2 GM in Premix Bag 1 BAG IV ONE (07:06)
--- NOTE | 2018-08-07 07:07 | PCM.CONSN ---
- General Info Date of Service: 08/07/18 Admission Dx/Problem (Free Text): Admission Diagnosis/Problem Admission Diagnosis/Problem Osteoarthritis of knee Subjective Update: In to see Adelaida. She is sitting up in bed. She reports she is weak but otherwise doing well. Pain is controlled. Hemoglobin was quite low today and she will be given 2 units. Otherwise labs look good. No nursing concerns. Primary team updated on need for blood and progress thus far. Functional Status: Reports: Pain Controlled, Tolerating Diet, Ambulating, Urinating. Denies: New Symptoms - Review of Systems General: Reports: Weakness. Denies: Fever, Fatigue, Malaise, Chills HEENT: Reports: No Symptoms. Denies: Headaches, Sore Throat Pulmonary: Reports: No Symptoms. Denies: Shortness of Breath, Pleuritic Chest Pain, Cough, Sputum, Wheezing Cardiovascular: Reports: No Symptoms. Denies: Chest Pain, Palpitations, Dyspnea on Exertion, Edema Gastrointestinal: Reports: No Symptoms. Denies: Abdominal Pain, Constipation, Diarrhea, Nausea, Vomiting Genitourinary: Reports: No Symptoms. Denies: Pain Musculoskeletal: Reports: Leg Pain Skin: Reports: No Symptoms Neurological: Reports: Difficulty Walking, Gait Disturbance. Denies: Confusion , Headache, Numbness, Tingling Psychiatric: Reports: No Symptoms - Patient Data Vitals - Most Recent: Last Vital Signs Temp 98.4 F 08/07/18 02:54 Pulse 88 08/07/18 02:54 Resp 16 08/07/18 02:54 BP 127/46 L 08/07/18 02:54 Pulse Ox 99 08/07/18 02:54 Weight - Most Recent: 177 lb 6.4 oz I&O - Last 24 Hours: Intake & Output 08/06/18 08/07/18 08/07/18 22:59 06:59 14:59 Intake Total 560 950 Output Total 950 1800 Balance -390 -850 Lab Results Last 24 Hours: Laboratory Results - last 24 hr 08/07/18 08/07/18 08/07/18 Range/Units 05:52 05:52 05:52 WBC 4.63 (3.98-10.04) K/mm3 RBC 2.67 L (3.98-5.22) M/mm3 Hgb 7.1 L* (11.2-15.7) gm/L Hct 22.8 L (34.1-44.9) % MCV 85.4 (79.4-94.8) fl MCH 26.6 (25.6-32.2) pg MCHC 31.1 L (32.2-35.5) g/dl RDW Std Deviation 50.3 H (36.4-46.3) fL Plt Count 145 L (182-369) K/mm3 MPV 11.9 (9.4-12.3) fl Neut % (Auto) 48.0 (34.0-71.1) % Lymph % (Auto) 36.1 (19.3-51.7) % Amelia % (Auto) 14.7 H (4.7-12.5) % Eos % (Auto) 0.6 L (0.7-5.8) Baso % (Auto) 0.2 (0.1-1.2) % Neut # (Auto) 2.22 (1.56-6.13) K/mm3 Lymph # (Auto) 1.67 (1.18-3.74) K/mm3 Amelia # (Auto) 0.68 H (0.24-0.36) K/mm3 Eos # (Auto) 0.03 L (0.04-0.36) K/mm3 Baso # (Auto) 0.01 (0.01-0.08) K/mm3 Sodium 143 (136-145) mEq/L Potassium 4.3 (3.5-5.1) mEq/L Chloride 108 H (98-107) mEq/L Carbon Dioxide 30 (21-32) mEq/L Anion Gap 9.3 (5-15) BUN 12 (7-18) mg/dL Creatinine 1.1 H (0.55-1.02) mg/dL Est Cr Clr Drug Dosing 47.78 mL/min Estimated GFR (MDRD) 52 (>60) mL/min BUN/Creatinine Ratio 10.9 L (14-18) Glucose 99 (74-106) mg/dL Calcium 8.4 L (8.5-10.1) mg/dL Magnesium 1.6 L (1.8-2.4) mg/dl Total Bilirubin 0.3 (0.2-1.0) mg/dL AST 61 H (15-37) U/L ALT 44 (14-59) U/L Alkaline Phosphatase 83 (46-116) U/L Total Protein 4.7 L (6.4-8.2) g/dl Albumin 2.3 L (3.4-5.0) g/dl Globulin 2.4 gm/dL Albumin/Globulin Ratio 1.0 (1-2) Med Orders - Current: Current Medications Bisacodyl (Dulcolax) 5 mg PO DAILY PRN PRN Reason: Constipation Bupropion HCl (Wellbutrin Xl) 450 mg PO DAILY [facility] Last Admin: 08/06/18 13:30 Dose: 450 mg Cholecalciferol (Vitamin D3) 5,000 unit PO DAILY [facility] Last Admin: 08/06/18 13:30 Dose: 5,000 unit Cyclobenzaprine HCl (Flexeril) 10 mg PO TID PRN PRN Reason: Spasms Last Admin: 08/06/18 19:36 Dose: 10 mg Dicyclomine HCl (Bentyl) 20 mg PO QID PRN PRN Reason: Pain Last Admin: 08/06/18 13:33 Dose: 20 mg Docusate Sodium (Colace) 100 mg PO BID [facility] Last Admin: 08/06/18 20:06 Dose: Not Given Doxycycline Hyclate (Vibramycin) 100 mg PO DAILY [facility] Last Admin: 08/06/18 13:17 Dose: Not Given Fluoxetine HCl (Prozac) 20 mg PO DAILY [facility] Last Admin: 08/06/18 13:30 Dose: 20 mg Hydromorphone HCl (Dilaudid) 0.2 mg IVPUSH Q2H PRN PRN Reason: Pain Last Admin: 08/06/18 06:36 Dose: 0.2 mg Cefazolin Sodium/Dextrose 2 gm (/ Premix) 50 mls @ 100 mls/hr IV Q8H [facility] Stop: 08/07/18 07:29 Last Admin: 08/07/18 07:04 Dose: 100 mls/hr Magnesium Sulfate 2 gm/ Premix 50 mls @ 25 mls/hr IV ONETIME ONE Stop: 08/07/18 09:05 Ketorolac Tromethamine (Toradol) 15 mg IVPUSH Q6H PRN PRN Reason: Pain Last Admin: 08/07/18 02:44 Dose: 15 mg Magnesium Hydroxide (Milk Of Magnesia) 30 ml PO BID PRN PRN Reason: Constipation Magnesium Oxide (Magnesium Oxide) 400 mg PO DAILY [facility] Last Admin: 08/06/18 13:30 Dose: 400 mg Miscellaneous Information (Remove Patch) 1 ea TRDERM DAILY [facility] Last Admin: 08/06/18 13:24 Dose: 1 ea Miscellaneous Information (Remove Patch) 0 ea TRDERM ONETIME ONE Stop: 08/07/18 10:31 Multivitamins (Thera) 1 each PO DAILY [facility] Last Admin: 08/06/18 13:30 Dose: 1 each Naloxone HCl (Narcan) 0.1 mg IVPUSH Q5M PRN PRN Reason: Oversedation Nicotine (Habitrol) 21 mg TRDERM DAILY [facility] Last Admin: 08/06/18 13:29 Dose: 21 mg Ondansetron HCl (Zofran) 4 mg IVPUSH Q6H PRN PRN Reason: Nausea/Vomiting Oxycodone/Acetaminophen (Percocet 325-5 Mg) 1 - 2 tab PO Q4H PRN PRN Reason: Pain Last Admin: 08/07/18 02:42 Dose: 2 tab Pantoprazole Sodium (Protonix) 40 mg PO DAILY@0700 [facility] Last Admin: 08/07/18 07:04 Dose: 40 mg Loratadine/ (Pseudoephedrine) 0 each PO DAILY [facility] Last Admin: 08/06/18 13:24 Dose: Not Given Divalproex Sodium (500 Mg Tab.Er) 0 each PO DAILY [facility] Senna (Senna) 8.6 mg PO BID PRN PRN Reason: Constipation Discontinued Medications Acetaminophen (Tylenol) 975 mg PO ONETIME [facility] Stop: 08/04/18 12:00 Last Admin: 08/04/18 10:27 Dose: 975 mg Bupivacaine HCl (Marcaine 0.25%) Confirm Administered Dose 30 ml .ROUTE .STK- MED ONE Stop: 08/04/18 10:01 Last Admin: 08/04/18 13:27 Dose: 30 ml Bupivacaine HCl (Marcaine 0.25%) Confirm Administered Dose 30 ml .ROUTE .STK- MED ONE Stop: 08/06/18 06:30 Last Admin: 08/06/18 08:31 Dose: 30 ml Cefazolin Sodium (Ancef) Confirm Administered Dose 2 gm .ROUTE .STK-MED ONE Stop: 08/04/18 10:00 Last Admin: 08/04/18 13:22 Dose: 2 gm Cefazolin Sodium (Ancef) Confirm Administered Dose 2 gm .ROUTE .STK-MED ONE Stop: 08/04/18 10:58 Cefazolin Sodium (Ancef) Confirm Administered Dose 2 gm .ROUTE .STK-MED ONE Stop: 08/06/18 06:29 Last Admin: 08/06/18 08:25 Dose: 2 gm Cefazolin Sodium (Ancef) Confirm Administered Dose 2 gm .ROUTE .STK-MED ONE Stop: 08/06/18 06:37 Morphine Sulfate 8 mg/Epinephrine HCl 0.3 mg/Cefuroxime Sodium 750 mg/Ketorolac Tromethamine 30 mg/Sodium Chloride 27.9 ml 0 mg .XX ONETIME ONE Stop: 08/04/18 12:01 Last Admin: 08/04/18 15:29 Dose: Not Given Diphenhydramine HCl (Benadryl) 25 mg IVPUSH Q6H PRN PRN Reason: itching Stop: 08/04/18 16:00 Divalproex Sodium (Depakote) 500 mg PO DAILY [facility] Last Admin: 08/05/18 09:01 Dose: 500 mg Epinephrine HCl (Adrenalin) Confirm Administered Dose 1 mg .ROUTE .STK-MED ONE Stop: 08/04/18 07:54 Fentanyl (Sublimaze) Confirm Administered Dose 100 mcg .ROUTE .STK-MED ONE Stop: 08/04/18 10:58 Fentanyl (Sublimaze) 50 mcg IVPUSH Q5M PRN PRN Reason: pain Stop: 08/04/18 16:00 Fentanyl (Sublimaze) Confirm Administered Dose 250 mcg .ROUTE .STK-MED ONE Stop: 08/06/18 06:37 Fentanyl (Sublimaze) Confirm Administered Dose 100 mcg .ROUTE .STK-MED ONE Stop: 08/06/18 08:12 Fentanyl (Sublimaze) 50 mcg IVPUSH Q5M PRN PRN Reason: Pain Stop: 08/06/18 12:00 Last Admin: 08/06/18 09:57 Dose: 50 mcg Hydromorphone HCl (Dilaudid) 0.2 mg IVPUSH Q2H PRN PRN Reason: Pain Hydromorphone HCl (Dilaudid) Confirm Administered Dose 0.5 mg .ROUTE .STK-MED ONE Stop: 08/06/18 08:09 Hydromorphone HCl (Dilaudid) Confirm Administered Dose 0.5 mg .ROUTE .STK-MED ONE Stop: 08/06/18 08:10 Hydromorphone HCl (Dilaudid) 0.5 mg IVPUSH Q10M PRN PRN Reason: Pain (severe 7-10) Stop: 08/06/18 12:00 Lactated Ringer's (Ringers, Lactated) 1,000 mls @ 125 mls/hr IV ASDIRECTED [facility] Stop: 08/04/18 23:00 Last Admin: 08/04/18 10:10 Dose: 125 mls/hr Cefazolin Sodium/Dextrose 2 gm (/ Premix) 50 mls @ 100 mls/hr IV Q8H [facility] Stop: 08/05/18 10:29 Last Admin: 08/05/18 11:10 Dose: 100 mls/hr Lactated Ringer's (Ringers, Lactated) Confirm Administered Dose 1,000 mls @ as directed .ROUTE .STK-MED ONE Stop: 08/04/18 13:10 Sodium Chloride (Normal Saline) 500 mls @ 20 drops/min IV .BOLUS ONE Stop: 08/05/18 14:10 Last Admin: 08/05/18 08:55 Dose: 999 drops/min Sodium Chloride (Normal Saline) 1,000 mls @ 100 mls/hr [facility] Last Admin: 08/05/18 23:26 Dose: 100 mls/hr Lactated Ringer's (Ringers, Lactated) Confirm Administered Dose 1,000 mls @ as directed .ROUTE .STK-MED ONE Stop: 08/06/18 10:50 Lactated Ringer's (Ringers, Lactated) Confirm Administered Dose 1,000 mls @ as directed .ROUTE .STK-MED ONE Stop: 08/06/18 10:50 Iodine (Iodine 2% Mild Tincture) Confirm Administered Dose 30 ml .ROUTE .STK- MED ONE Stop: 08/04/18 10:01 Last Admin: 08/04/18 13:20 Dose: 18 ml Iodine (Iodine 2% Mild Tincture) Confirm Administered Dose 30 ml .ROUTE .STK- MED ONE Stop: 08/06/18 06:30 Last Admin: 08/06/18 08:17 Dose: 18 ml Ketorolac Tromethamine (Toradol) 15 mg IVPUSH Q6H PRN PRN Reason: Pain Last Admin: 08/05/18 07:11 Dose: 15 mg Ketorolac Tromethamine (Toradol) 30 mg IVPUSH ONETIME PRN PRN Reason: Pain Stop: 08/06/18 12:00 Lidocaine/Sodium Bicarbonate (Buffered Lidocaine 1% In Ns 8.4%) 0.25 ml IDERM ONETIME PRN PRN Reason: Prior to IV Start Stop: 08/04/18 18:00 Last Admin: 08/04/18 10:10 Dose: 0.25 ml Metoclopramide HCl (Reglan) 10 mg IVPUSH ONETIME PRN PRN Reason: Nausea/Vomiting Stop: 08/04/18 17:00 Midazolam HCl (Versed 1 Mg/Ml) Confirm Administered Dose 2 mg .ROUTE .STK-MED ONE Stop: 08/04/18 10:58 Midazolam HCl (Versed 1 Mg/Ml) Confirm Administered Dose 2 mg .ROUTE .STK-MED ONE Stop: 08/06/18 06:37 Morphine Sulfate (Morphine) 2 mg IVPUSH Q2H PRN PRN Reason: Breakthrough Pain Non-Formulary Medication (Ondansetron) 4 mg PO Q8H PRN PRN Reason: Nausea/Vomiting Ondansetron HCl (Zofran) 4 mg IVPUSH ONETIME PRN PRN Reason: Nausea/Vomiting Stop: 08/04/18 18:00 Ondansetron HCl (Zofran) Confirm Administered Dose 4 mg .ROUTE .STK-MED ONE Stop: 08/06/18 06:36 Oxycodone HCl (Oxycontin) 10 mg PO ONETIME [facility] Stop: 08/04/18 12:00 Last Admin: 08/04/18 10:27 Dose: 10 mg Divalproex Sodium (500 Mg Tab.Er) 0 each PO DAILY [facility] Last Admin: 08/06/18 13:59 Dose: Not Given Divalproex Sodium (500 Mg Tab.Er Ptom) 0 each PO ONETIME ONE Stop: 08/06/18 15:16 Last Admin: 08/06/18 16:01 Dose: 1 each Pregabalin (Lyrica) 50 mg PO ONETIME [facility] Stop: 08/04/18 12:00 Last Admin: 08/04/18 10:27 Dose: 50 mg Propofol (Diprivan 20 Ml) Confirm Administered Dose 600 mg .ROUTE .STK-MED ONE Stop: 08/04/18 10:56 Propofol (Diprivan 20 Ml) Confirm Administered Dose 200 mg .ROUTE .STK-MED ONE Stop: 08/06/18 06:37 Rivaroxaban (Xarelto) 10 mg PO DAILY [facility] Rocuronium [place] (Zemuron) Confirm Administered Dose 50 mg .ROUTE .STK-MED ONE Stop: 08/06/18 06:36 Ropivacaine (Naropin 0.5%) Confirm Administered Dose 30 ml .ROUTE .STK-MED ONE Stop: 08/04/18 07:54 Scopolamine (Transderm-Scop) 1.5 mg TRDERM ONETIME [facility] Last Admin: 08/04/18 10:27 Dose: 1.5 mg Sodium Chloride (Saline Flush) 10 ml FLUSH ASDIRECTED PRN PRN Reason: Keep Vein Open Stop: 08/04/18 18:00 Tranexamic Acid (Cyklokapron) Confirm Administered Dose 1,000 mg .ROUTE .STK- MED ONE Stop: 08/04/18 10:00 Last Admin: 08/04/18 13:35 Dose: 1,000 mg Tranexamic Acid (Cyklokapron) Confirm Administered Dose 1,000 mg .ROUTE .STK- MED ONE Stop: 08/06/18 06:29 Last Admin: 08/06/18 08:34 Dose: 1,000 mg Vancomycin HCl (Vancomycin) Confirm Administered Dose 1 gm .ROUTE .STK-MED ONE Stop: 08/04/18 10:00 Last Admin: 08/04/18 13:30 Dose: 1 gm Vancomycin HCl (Vancomycin) Confirm Administered Dose 1 gm .ROUTE .STK-MED ONE Stop: 08/06/18 06:31 Last Admin: 08/06/18 08:33 Dose: 1 gm - Exam Quality Assessment: DVT Prophylaxis. No: Urine Catheter General: Alert, Oriented, Cooperative, No Acute Distress HEENT: Pupils Equal, Pupils Reactive, EOMI, Mucous Membr. Moist/[place] Neck: Supple, Trachea Midline, No JVD Lungs: Clear to Auscultation, Normal Respiratory Effort Cardiovascular: Regular Rate, Regular Rhythm GI/Abdominal Exam: Normal Bowel Sounds, Soft, Non-Tender, No Distention, No Abnormal Bruit (Female) Exam: Deferred Back Exam: Normal Inspection, Full Range of Motion Extremities: No Pedal Edema, Normal Capillary Refill, Leg Pain, Limited Range of Motion, Other (Bandage in place on right leg. Cooling pack in place.) Peripheral Pulses: 2+: Dorsalis Pedis (L), Dorsalis Pedis (R), 3+: Radial (L), Radial (R) Skin: Warm, Dry, Intact Wound/Incisions: Dressing Dry and Intact, No Drainage Neurological: No New Focal Deficit Psy/Mental Status: Alert, Normal Affect, Normal Mood Consult PN Assessment/Plan POD#: 1 Procedures: Procedures AQUATIC THERAPY/EXERCISES (06/13/18) ASSAY OF PREALBUMIN (07/21/18) ASSAY THYROID STIM HORMONE (07/21/18) CARDIOVASCULAR STRESS TEST (03/06/18) COMPLETE CBC AUTOMATED (07/21/18) COMPREHEN METABOLIC PANEL (07/21/18) CT HEAD/BRAIN W/O DYE (12/26/17) EMERGENCY DEPT VISIT (12/26/17) FIXATION OF KNEE JOINT (05/28/18) GAIT TRAINING THERAPY (06/11/18) HT MUSCLE IMAGE SPECT MULT (03/06/18) MANUAL THERAPY 1/> REGIONS (06/11/18) MASSAGE THERAPY (06/11/18) MR-STAPH DNA AMP PROBE (07/21/18) PROTHROMBIN TIME (03/03/18) PT EVAL MOD COMPLEX 30 MIN (05/02/18) ROUTINE VENIPUNCTURE (07/21/18) THER/PROPH/DIAG INJ IV PUSH (12/26/17) THERAPEUTIC EXERCISES (06/11/18) THROMBOPLASTIN TIME PARTIAL (07/21/18) TX/PRO/DX INJ NEW DRUG ADDON (12/26/17) URINALYSIS AUTO W/O SCOPE (07/21/18) URINALYSIS AUTO W/SCOPE (03/03/18) X-RAY EXAM CHEST 2 VIEWS (03/03/18) (1) Femur fracture, right SNOMED Code(s): 80121887 Code(s): S72.91XA - UNSP FRACTURE OF RIGHT FEMUR, INIT FOR CLOS FX Priority : High Current Visit: Yes Qualifiers: Encounter type: initial encounter Femur location: unspecified portion of femur Fracture type: closed Fracture morphology: unspecified fracture morphology Qualified Code(s): S72.91XA - Unspecified fracture of right femur, initial encounter for closed fracture (2) Acute renal injury SNOMED Code(s): 55824580 Code(s): N17.9 - ACUTE KIDNEY FAILURE, UNSPECIFIED Priority: High Current Visit: Yes (3) Migraine headache SNOMED Code(s): 03469654 Code(s): G43.909 - MIGRAINE, UNSP, NOT INTRACTABLE, WITHOUT STATUS MIGRAINOSUS Priority: Low Current Visit: No Qualifiers: Migraine type: unspecified Status migrainosus presence: without status migrainosus Intractability: not intractable Qualified Code(s): G43.909 - Migraine, unspecified, not intractable, without status migrainosus (4) Osteoarthritis SNOMED Code(s): 380206730 Code(s): M19.90 - UNSPECIFIED OSTEOARTHRITIS, UNSPECIFIED SITE Priority: High Current Visit: Yes Qualifiers: Osteoarthritis location: knee Osteoarthritis type: unspecified (5) S/P knee replacement SNOMED Code(s): 793343642 Code(s): Z96.659 - PRESENCE OF UNSPECIFIED ARTIFICIAL KNEE JOINT Priority: High Current Visit: Yes Qualifiers: Laterality: right Qualified Code(s): Z96.651 - Presence of right artificial knee joint (6) Hyperkalemia SNOMED Code(s): 67990641 Code(s): E87.5 - HYPERKALEMIA Priority: High Current Visit: Yes (7) Tobacco use disorder SNOMED Code(s): 206270850 Code(s): F17.200 - NICOTINE DEPENDENCE, UNSPECIFIED, UNCOMPLICATED Priority : High Current Visit: Yes (8) Postoperative anemia SNOMED Code(s): 032929019, 282158510 Code(s): D64.9 - ANEMIA, UNSPECIFIED Priority: High Current Visit: Yes Problem List Initiated/Reviewed/Updated: Yes My Orders Last 24 Hours: My Active Orders 08/06/18 14:47 Consult to Occupational Therapy [OT Evaluation and Treatment] [CONS] Routine PT Evaluation and Treatment [CONS] Routine 08/07/18 05:52 CBC WITH AUTO DIFF [HEME] AM TYPE AND SCREEN [BBK] Routine 08/07/18 07:06 Magnesium Sulfate/Water [Magnesium Sulfate 2 GM in Water 50 ML] 2 gm Premix Bag 1 bag IV ONETIME 08/08/18 05:11 CBC WITH AUTO DIFF [HEME] AM MAGNESIUM [CHEM] AM 08/09/18 05:11 CBC WITH AUTO DIFF [HEME] AM MAGNESIUM [CHEM] AM Plan: I/P: Acute: Post-operative anemia -Hgb preoperatively was 13.6-->10.0-->8.4-->7.1 -Pale and feels weak -Type and screen -2 units ordered -Monitor S/P Right femur fracture with intramedullary nailing of right femoral shaft fracture; Post-operative day 1 -2/2 fall after TKA -Management per primary team -Plan for surgery morning of 08/06/18 -NPO after midnight -> resume normal diet -Insert dobson catheter to minimize movement -> discontinue when able to ambulate -Bedrest -> discontinue -Hold pharmacologic anticoagulation, continue SCDs -> resume -Monitor labs as below -Continue PT/OT -May require placement after surgery for rehab stay -Consult CM/SW S/P right total knee arthroplasty - post-operative day 3 -DVT prophylaxis and pain management per primary care team -PT/OT -IS/RT -Monitor oxygen saturation -Titrate oxygen as needed -Vital signs stable -Monitor labs -Pre-operative Hgb was 13.6; Now 10.0-->8.4 (receiving IV fluids)-->7.1 -Pre-operative GFR was 58; Now 47-->52 Osteoarthritis of right knee -Pain management per primary care team JONO, stable -History of similar labs after last TKA -Baseline GFR was 58 with creatinine of 1.0 -BUN 19-->21-->23-->18-->12 -Creatinine 1.2-->1.6-->1.6-->1.1-->1.1 -eGFR 47-->33-->33-->52-->52 -IV fluids as ordered -Monitor Tobacco use disorder -Smokes 0.5 PPD for past 20 years -Nicotine patch -Cessation counseling Hypomagnesemia -Magnesium 1.6 -Supplemented IV Resolved: Hyperkalemia -Potassium 5.3-->4.3 -IV fluids as ordered -Repeat BMP today Chronic: Acne OA Depression Anxiety GERD IBS Migraine RA Abnormal EKG with Q waves in inferior leads Colitis Gastric bypass Plan: CM for discharge planning -> Rehab stay GI prophylaxis Home medications as indicated Other orders as listed above Routine AM labs She is a full code. Her PCP is Cleo Soto PA-C Thank you for allowing us to participate in the care of this patient!!
--- NOTE | 2018-08-07 07:31 | PCM.SURGPN ---
- General Info Date of Service: 08/07/18 POD#: 3 Functional Status: Reports: Pain Controlled, Tolerating Diet, Ambulating, Urinating, Incentive Spirometry, Other (The pt states she is doing better today. ) - Patient Data Vitals - Most Recent: Last Vital Signs Temp 98.4 F 08/07/18 02:54 Pulse 88 08/07/18 02:54 Resp 16 08/07/18 02:54 BP 127/46 L 08/07/18 02:54 Pulse Ox 99 08/07/18 02:54 Weight - Most Recent: 177 lb 6.4 oz I&O - Last 24 Hours: Intake & Output 08/06/18 08/07/18 08/07/18 22:59 06:59 14:59 Intake Total 560 950 Output Total 950 1800 Balance -390 -850 Lab Results Last 24 Hrs: Laboratory Results - last 24 hr 08/07/18 08/07/18 08/07/18 Range/Units 05:52 05:52 05:52 WBC 4.63 (3.98-10.04) K/mm3 RBC 2.67 L (3.98-5.22) M/mm3 Hgb 7.1 L* (11.2-15.7) gm/L Hct 22.8 L (34.1-44.9) % MCV 85.4 (79.4-94.8) fl MCH 26.6 (25.6-32.2) pg MCHC 31.1 L (32.2-35.5) g/dl RDW Std Deviation 50.3 H (36.4-46.3) fL Plt Count 145 L (182-369) K/mm3 MPV 11.9 (9.4-12.3) fl Neut % (Auto) 48.0 (34.0-71.1) % Lymph % (Auto) 36.1 (19.3-51.7) % Towns % (Auto) 14.7 H (4.7-12.5) % Eos % (Auto) 0.6 L (0.7-5.8) Baso % (Auto) 0.2 (0.1-1.2) % Neut # (Auto) 2.22 (1.56-6.13) K/mm3 Lymph # (Auto) 1.67 (1.18-3.74) K/mm3 Towns # (Auto) 0.68 H (0.24-0.36) K/mm3 Eos # (Auto) 0.03 L (0.04-0.36) K/mm3 Baso # (Auto) 0.01 (0.01-0.08) K/mm3 Sodium 143 (136-145) mEq/L Potassium 4.3 (3.5-5.1) mEq/L Chloride 108 H (98-107) mEq/L Carbon Dioxide 30 (21-32) mEq/L Anion Gap 9.3 (5-15) BUN 12 (7-18) mg/dL Creatinine 1.1 H (0.55-1.02) mg/dL Est Cr Clr Drug Dosing 47.78 mL/min Estimated GFR (MDRD) 52 (>60) mL/min BUN/Creatinine Ratio 10.9 L (14-18) Glucose 99 (74-106) mg/dL Calcium 8.4 L (8.5-10.1) mg/dL Magnesium 1.6 L (1.8-2.4) mg/dl Total Bilirubin 0.3 (0.2-1.0) mg/dL AST 61 H (15-37) U/L ALT 44 (14-59) U/L Alkaline Phosphatase 83 (46-116) U/L Total Protein 4.7 L (6.4-8.2) g/dl Albumin 2.3 L (3.4-5.0) g/dl Globulin 2.4 gm/dL Albumin/Globulin Ratio 1.0 (1-2) Med Orders - Current: Current Medications Bisacodyl (Dulcolax) 5 mg PO DAILY PRN PRN Reason: Constipation Bupropion HCl (Wellbutrin Xl) 450 mg PO DAILY ROBERT Last Admin: 08/06/18 13:30 Dose: 450 mg Cholecalciferol (Vitamin D3) 5,000 unit PO DAILY ROBERT Last Admin: 08/06/18 13:30 Dose: 5,000 unit Cyclobenzaprine HCl (Flexeril) 10 mg PO TID PRN PRN Reason: Spasms Last Admin: 08/06/18 19:36 Dose: 10 mg Dicyclomine HCl (Bentyl) 20 mg PO QID PRN PRN Reason: Pain Last Admin: 08/06/18 13:33 Dose: 20 mg Docusate Sodium (Colace) 100 mg PO BID [facility] Last Admin: 08/06/18 20:06 Dose: Not Given Doxycycline Hyclate (Vibramycin) 100 mg PO DAILY [facility] Last Admin: 08/06/18 13:17 Dose: Not Given Fluoxetine HCl (Prozac) 20 mg PO DAILY [facility] Last Admin: 08/06/18 13:30 Dose: 20 mg Hydromorphone HCl (Dilaudid) 0.2 mg IVPUSH Q2H PRN PRN Reason: Pain Last Admin: 08/06/18 06:36 Dose: 0.2 mg Cefazolin Sodium/Dextrose 2 gm (/ Premix) 50 mls @ 100 mls/hr IV Q8H [facility] Stop: 08/07/18 07:29 Last Admin: 08/07/18 07:04 Dose: 100 mls/hr Magnesium Sulfate 2 gm/ Premix 50 mls @ 25 mls/hr IV ONETIME ONE Stop: 08/07/18 09:05 Ketorolac Tromethamine (Toradol) 15 mg IVPUSH Q6H PRN PRN Reason: Pain Last Admin: 08/07/18 02:44 Dose: 15 mg Magnesium Hydroxide (Milk Of Magnesia) 30 ml PO BID PRN PRN Reason: Constipation Magnesium Oxide (Magnesium Oxide) 400 mg PO DAILY [facility] Last Admin: 08/06/18 13:30 Dose: 400 mg Miscellaneous Information (Remove Patch) 1 ea TRDERM DAILY [facility] Last Admin: 08/06/18 13:24 Dose: 1 ea Miscellaneous Information (Remove Patch) 0 ea TRDERM ONETIME ONE Stop: 08/07/18 10:31 Multivitamins (Thera) 1 each PO DAILY [facility] Last Admin: 08/06/18 13:30 Dose: 1 each Naloxone HCl (Narcan) 0.1 mg IVPUSH Q5M PRN PRN Reason: Oversedation Nicotine (Habitrol) 21 mg TRDERM DAILY [facility] Last Admin: 08/06/18 13:29 Dose: 21 mg Ondansetron HCl (Zofran) 4 mg IVPUSH Q6H PRN PRN Reason: Nausea/Vomiting Oxycodone/Acetaminophen (Percocet 325-5 Mg) 1 - 2 tab PO Q4H PRN PRN Reason: Pain Last Admin: 08/07/18 02:42 Dose: 2 tab Pantoprazole Sodium (Protonix) 40 mg PO DAILY@0700 [facility] Last Admin: 08/07/18 07:04 Dose: 40 mg Loratadine/ (Pseudoephedrine) 0 each PO DAILY [facility] Last Admin: 08/06/18 13:24 Dose: Not Given Divalproex Sodium (500 Mg Tab.Er) 0 each PO DAILY [facility] Senna (Senna) 8.6 mg PO BID PRN PRN Reason: Constipation Discontinued Medications Acetaminophen (Tylenol) 975 mg PO ONETIME [facility] Stop: 08/04/18 12:00 Last Admin: 08/04/18 10:27 Dose: 975 mg Bupivacaine HCl (Marcaine 0.25%) Confirm Administered Dose 30 ml .ROUTE .STK- MED ONE Stop: 08/04/18 10:01 Last Admin: 08/04/18 13:27 Dose: 30 ml Bupivacaine HCl (Marcaine 0.25%) Confirm Administered Dose 30 ml .ROUTE .STK- MED ONE Stop: 08/06/18 06:30 Last Admin: 08/06/18 08:31 Dose: 30 ml Cefazolin Sodium (Ancef) Confirm Administered Dose 2 gm .ROUTE .STK-MED ONE Stop: 08/04/18 10:00 Last Admin: 08/04/18 13:22 Dose: 2 gm Cefazolin Sodium (Ancef) Confirm Administered Dose 2 gm .ROUTE .STK-MED ONE Stop: 08/04/18 10:58 Cefazolin Sodium (Ancef) Confirm Administered Dose 2 gm .ROUTE .STK-MED ONE Stop: 08/06/18 06:29 Last Admin: 08/06/18 08:25 Dose: 2 gm Cefazolin Sodium (Ancef) Confirm Administered Dose 2 gm .ROUTE .STK-MED ONE Stop: 08/06/18 06:37 Morphine Sulfate 8 mg/Epinephrine HCl 0.3 mg/Cefuroxime Sodium 750 mg/Ketorolac Tromethamine 30 mg/Sodium Chloride 27.9 ml 0 mg .XX ONETIME ONE Stop: 08/04/18 12:01 Last Admin: 08/04/18 15:29 Dose: Not Given Diphenhydramine HCl (Benadryl) 25 mg IVPUSH Q6H PRN PRN Reason: itching Stop: 08/04/18 16:00 Divalproex Sodium (Depakote) 500 mg PO DAILY [facility] Last Admin: 08/05/18 09:01 Dose: 500 mg Epinephrine HCl (Adrenalin) Confirm Administered Dose 1 mg .ROUTE .STK-MED ONE Stop: 08/04/18 07:54 Fentanyl (Sublimaze) Confirm Administered Dose 100 mcg .ROUTE .STK-MED ONE Stop: 08/04/18 10:58 Fentanyl (Sublimaze) 50 mcg IVPUSH Q5M PRN PRN Reason: pain Stop: 08/04/18 16:00 Fentanyl (Sublimaze) Confirm Administered Dose 250 mcg .ROUTE .STK-MED ONE Stop: 08/06/18 06:37 Fentanyl (Sublimaze) Confirm Administered Dose 100 mcg .ROUTE .STK-MED ONE Stop: 08/06/18 08:12 Fentanyl (Sublimaze) 50 mcg IVPUSH Q5M PRN PRN Reason: Pain Stop: 08/06/18 12:00 Last Admin: 08/06/18 09:57 Dose: 50 mcg Hydromorphone HCl (Dilaudid) 0.2 mg IVPUSH Q2H PRN PRN Reason: Pain Hydromorphone HCl (Dilaudid) Confirm Administered Dose 0.5 mg .ROUTE .STK-MED ONE Stop: 08/06/18 08:09 Hydromorphone HCl (Dilaudid) Confirm Administered Dose 0.5 mg .ROUTE .STK-MED ONE Stop: 08/06/18 08:10 Hydromorphone HCl (Dilaudid) 0.5 mg IVPUSH Q10M PRN PRN Reason: Pain (severe 7-10) Stop: 08/06/18 12:00 Lactated Ringer's (Ringers, Lactated) 1,000 mls @ 125 mls/hr IV ASDIRECTED [facility] Stop: 08/04/18 23:00 Last Admin: 08/04/18 10:10 Dose: 125 mls/hr Cefazolin Sodium/Dextrose 2 gm (/ Premix) 50 mls @ 100 mls/hr IV Q8H [facility] Stop: 08/05/18 10:29 Last Admin: 08/05/18 11:10 Dose: 100 mls/hr Lactated Ringer's (Ringers, Lactated) Confirm Administered Dose 1,000 mls @ as directed .ROUTE .STK-MED ONE Stop: 08/04/18 13:10 Sodium Chloride (Normal Saline) 500 mls @ 20 drops/min IV .BOLUS ONE Stop: 08/05/18 14:10 Last Admin: 08/05/18 08:55 Dose: 999 drops/min Sodium Chloride (Normal Saline) 1,000 mls @ 100 mls/hr IV ASDIRECTED ROBERT Last Admin: 08/05/18 23:26 Dose: 100 mls/hr Lactated Ringer's (Ringers, Lactated) Confirm Administered Dose 1,000 mls @ as directed .ROUTE .STK-MED ONE Stop: 08/06/18 10:50 Lactated Ringer's (Ringers, Lactated) Confirm Administered Dose 1,000 mls @ as directed .ROUTE .STK-MED ONE Stop: 08/06/18 10:50 Iodine (Iodine 2% Mild Tincture) Confirm Administered Dose 30 ml .ROUTE .STK- MED ONE Stop: 08/04/18 10:01 Last Admin: 08/04/18 13:20 Dose: 18 ml Iodine (Iodine 2% Mild Tincture) Confirm Administered Dose 30 ml .ROUTE .STK- MED ONE Stop: 08/06/18 06:30 Last Admin: 08/06/18 08:17 Dose: 18 ml Ketorolac Tromethamine (Toradol) 15 mg IVPUSH Q6H PRN PRN Reason: Pain Last Admin: 08/05/18 07:11 Dose: 15 mg Ketorolac Tromethamine (Toradol) 30 mg IVPUSH ONETIME PRN PRN Reason: Pain Stop: 08/06/18 12:00 Lidocaine/Sodium Bicarbonate (Buffered Lidocaine 1% In Ns 8.4%) 0.25 ml IDERM ONETIME PRN PRN Reason: Prior to IV Start Stop: 08/04/18 18:00 Last Admin: 08/04/18 10:10 Dose: 0.25 ml Metoclopramide HCl (Reglan) 10 mg IVPUSH ONETIME PRN PRN Reason: Nausea/Vomiting Stop: 08/04/18 17:00 Midazolam HCl (Versed 1 Mg/Ml) Confirm Administered Dose 2 mg .ROUTE .STK-MED ONE Stop: 08/04/18 10:58 Midazolam HCl (Versed 1 Mg/Ml) Confirm Administered Dose 2 mg .ROUTE .STK-MED ONE Stop: 08/06/18 06:37 Morphine Sulfate (Morphine) 2 mg IVPUSH Q2H PRN PRN Reason: Breakthrough Pain Non-Formulary Medication (Ondansetron) 4 mg PO Q8H PRN PRN Reason: Nausea/Vomiting Ondansetron HCl (Zofran) 4 mg IVPUSH ONETIME PRN PRN Reason: Nausea/Vomiting Stop: 08/04/18 18:00 Ondansetron HCl (Zofran) Confirm Administered Dose 4 mg .ROUTE .STK-MED ONE Stop: 08/06/18 06:36 Oxycodone HCl (Oxycontin) 10 mg PO ONETIME [facility] Stop: 08/04/18 12:00 Last Admin: 08/04/18 10:27 Dose: 10 mg Divalproex Sodium (500 Mg Tab.Er) 0 each PO DAILY [facility] Last Admin: 08/06/18 13:59 Dose: Not Given Divalproex Sodium (500 Mg Tab.Er Ptom) 0 each PO ONETIME ONE Stop: 08/06/18 15:16 Last Admin: 08/06/18 16:01 Dose: 1 each Pregabalin (Lyrica) 50 mg PO ONETIME [facility] Stop: 08/04/18 12:00 Last Admin: 08/04/18 10:27 Dose: 50 mg Propofol (Diprivan 20 Ml) Confirm Administered Dose 600 mg .ROUTE .STK-MED ONE Stop: 08/04/18 10:56 Propofol (Diprivan 20 Ml) Confirm Administered Dose 200 mg .ROUTE .STK-MED ONE Stop: 08/06/18 06:37 Rivaroxaban (Xarelto) 10 mg PO DAILY [facility] Rocuronium [place] (Zemuron) Confirm Administered Dose 50 mg .ROUTE .STK-MED ONE Stop: 08/06/18 06:36 Ropivacaine (Naropin 0.5%) Confirm Administered Dose 30 ml .ROUTE .STK-MED ONE Stop: 08/04/18 07:54 Scopolamine (Transderm-Scop) 1.5 mg TRDERM ONETIME [facility] Last Admin: 08/04/18 10:27 Dose: 1.5 mg Sodium Chloride (Saline Flush) 10 ml FLUSH ASDIRECTED PRN PRN Reason: Keep Vein Open Stop: 08/04/18 18:00 Tranexamic Acid (Cyklokapron) Confirm Administered Dose 1,000 mg .ROUTE .STK- MED ONE Stop: 08/04/18 10:00 Last Admin: 08/04/18 13:35 Dose: 1,000 mg Tranexamic Acid (Cyklokapron) Confirm Administered Dose 1,000 mg .ROUTE .STK- MED ONE Stop: 08/06/18 06:29 Last Admin: 08/06/18 08:34 Dose: 1,000 mg Vancomycin HCl (Vancomycin) Confirm Administered Dose 1 gm .ROUTE .STK-MED ONE Stop: 08/04/18 10:00 Last Admin: 08/04/18 13:30 Dose: 1 gm Vancomycin HCl (Vancomycin) Confirm Administered Dose 1 gm .ROUTE .STK-MED ONE Stop: 08/06/18 06:31 Last Admin: 08/06/18 08:33 Dose: 1 gm - Exam Wound/Incisions: Dressing Dry and Intact General: Alert, Cooperative, No Acute Distress Lungs: Normal Respiratory Effort Extremities: Other (Pt able to sense light touch at all RLE dermatomes. States slightly altered sensation at anterior right lower leg. Strong quad contraction noted on the right. No dorsiflexion weakness noted on the right.) - Problem List Review Problem List Initiated/Reviewed/Updated: Yes - My Orders Last 24 Hours: Active Orders 24 hr Category Date Time Status Cooling Warming Measures [RC] ASDIRECTED Care 08/06/18 09:12 Inactive DC [place] Catheter [Urinary Catheter Removal] [RC] 0700 Care 08/07/18 07:00 Active Dressing Change [Wound Care] [RC] ASDIRECTED Care 08/07/18 07:27 Ordered Pulse Oximetry [RC] ASDIRECTED Care 08/06/18 09:12 Active Consult to Occupational Therapy [OT Evaluation and Cons 08/06/18 14:47 Active Treatment] [CONS] Routine PT Evaluation and Treatment [CONS] Routine Cons 08/06/18 14:47 Active Regular Diet [DIET] Diet 08/06/18 Lunch Active CBC WITH AUTO DIFF [HEME] AM Lab 08/07/18 05:52 Results CBC WITH AUTO DIFF [HEME] AM Lab 08/08/18 05:11 Ordered CBC WITH AUTO DIFF [HEME] AM Lab 08/09/18 05:11 Ordered MAGNESIUM [CHEM] AM Lab 08/08/18 05:11 Ordered MAGNESIUM [CHEM] AM Lab 08/09/18 05:11 Ordered RED BLOOD CELLS LP [BBK] Stat Lab 08/07/18 05:52 Received TYPE AND SCREEN [BBK] Routine Lab 08/07/18 05:52 Received Ketorolac [Toradol] Med 08/06/18 06:56 Active 15 mg IVPUSH Q6H PRN Magnesium Sulfate/Water [Magnesium Sulfate 2 GM in Med 08/07/18 07:06 Active Water 50 ML] 2 gm Premix Bag 1 bag IV ONETIME Patient's Own Medication [Ptom] Med 08/07/18 09:00 Active 0 each PO DAILY Remove Patch Med 08/07/18 10:30 Once 0 ea TRDERM ONETIME ONE ceFAZolin [Ancef] 2 gm Med 08/06/18 15:00 Active Premix Bag 1 bag IV Q8H Schedule Procedure [COMM] Routine Oth 08/06/18 07:30 Ordered Transfuse Red Blood Cells [COMM] Stat Oth 08/07/18 07:20 Ordered Weight bearing status [OM.PC] Routine Oth 08/06/18 11:28 Ordered Weight bearing status [OM.PC] Routine Oth 08/06/18 11:35 Ordered Medication Orders Bisacodyl (Dulcolax) 5 mg PO DAILY PRN PRN Reason: Constipation Bupropion HCl (Wellbutrin Xl) 450 mg PO DAILY ROBERT Last Admin: 08/06/18 13:30 Dose: 450 mg Admin: 08/05/18 09:03 Dose: 450 mg Cholecalciferol (Vitamin D3) 5,000 unit PO DAILY ROBERT Last Admin: 08/06/18 13:30 Dose: 5,000 unit Admin: 08/05/18 09:01 Dose: 5,000 unit Cyclobenzaprine HCl (Flexeril) 10 mg PO TID PRN PRN Reason: Spasms Last Admin: 08/06/18 19:36 Dose: 10 mg Admin: 08/05/18 20:23 Dose: 10 mg Admin: 08/05/18 07:10 Dose: 10 mg Admin: 08/04/18 20:20 Dose: 10 mg Dicyclomine HCl (Bentyl) 20 mg PO QID PRN PRN Reason: Pain Last Admin: 08/06/18 13:33 Dose: 20 mg Admin: 08/05/18 20:23 Dose: 20 mg Docusate Sodium (Colace) 100 mg PO BID [facility] Last Admin: 08/06/18 20:06 Dose: Not Given Admin: 08/06/18 13:29 Dose: 100 mg Admin: 08/05/18 20:24 Dose: 100 mg Admin: 08/05/18 09:01 Dose: 100 mg Admin: 08/04/18 20:20 Dose: 100 mg Doxycycline Hyclate (Vibramycin) 100 mg PO DAILY [facility] Last Admin: 08/06/18 13:17 Dose: Admin: 08/05/18 09:03 Dose: 100 mg Fluoxetine HCl (Prozac) 20 mg PO DAILY [facility] Last Admin: 08/06/18 13:30 Dose: 20 mg Admin: 08/05/18 09:01 Dose: 20 mg Hydromorphone HCl (Dilaudid) 0.2 mg IVPUSH Q2H PRN PRN Reason: Pain Last Admin: 08/06/18 06:36 Dose: 0.2 mg Admin: 08/06/18 04:32 Dose: 0.2 mg Admin: 08/06/18 02:20 Dose: 0.2 mg Admin: 08/04/18 20:13 Dose: 0.2 mg Cefazolin Sodium/Dextrose 2 gm (/ Premix) 50 mls @ 100 mls/hr IV Q8H [facility] Stop: 08/07/18 07:29 Last Admin: 08/07/18 07:04 Dose: 100 mls/hr Infusion: 08/06/18 23:34 Dose: 100 mls/hr Admin: 08/06/18 23:04 Dose: 100 mls/hr Infusion: 08/06/18 14:31 Dose: 100 mls/hr Admin: 08/06/18 14:01 Dose: 100 mls/hr Magnesium Sulfate 2 gm/ Premix 50 mls @ 25 mls/hr IV ONETIME ONE Stop: 08/07/18 09:05 Ketorolac Tromethamine (Toradol) 15 mg IVPUSH Q6H PRN PRN Reason: Pain Last Admin: 08/07/18 02:44 Dose: 15 mg Admin: 08/06/18 20:15 Dose: 15 mg Magnesium Hydroxide (Milk Of Magnesia) 30 ml PO BID PRN PRN Reason: Constipation Magnesium Oxide (Magnesium Oxide) 400 mg PO DAILY [facility] Last Admin: 08/06/18 13:30 Dose: 400 mg Admin: 08/05/18 09:02 Dose: 400 mg Miscellaneous Information (Remove Patch) 1 ea TRDERM DAILY [facility] Last Admin: 08/06/18 13:24 Dose: 1 ea Admin: 08/05/18 09:06 Dose: 1 ea Miscellaneous Information (Remove Patch) 0 ea TRDERM ONETIME ONE Stop: 08/07/18 10:31 Multivitamins (Thera) 1 each PO DAILY [facility] Last Admin: 08/06/18 13:30 Dose: 1 each Admin: 08/05/18 09:03 Dose: 1 each Naloxone HCl (Narcan) 0.1 mg IVPUSH Q5M PRN PRN Reason: Oversedation Nicotine (Habitrol) 21 mg TRDERM DAILY [facility] Last Admin: 08/06/18 13:29 Dose: 21 mg Admin: 08/05/18 09:06 Dose: 21 mg Admin: 08/04/18 17:31 Dose: 21 mg Ondansetron HCl (Zofran) 4 mg IVPUSH Q6H PRN PRN Reason: Nausea/Vomiting Oxycodone/Acetaminophen (Percocet 325-5 Mg) 1 - 2 tab PO Q4H PRN PRN Reason: Pain Last Admin: 08/07/18 02:42 Dose: 2 tab Admin: 08/06/18 20:14 Dose: 2 tab Admin: 08/06/18 15:59 Dose: 2 tab Admin: 08/06/18 10:39 Dose: 2 tab Admin: 08/05/18 22:38 Dose: 2 tab Admin: 08/05/18 17:53 Dose: 2 tab Admin: 08/05/18 13:34 Dose: 2 tab Admin: 08/05/18 09:03 Dose: 2 tab Admin: 08/05/18 03:57 Dose: 2 tab Admin: 08/04/18 17:31 Dose: 2 tab Pantoprazole Sodium (Protonix) 40 mg PO DAILY@0700 [facility] Last Admin: 08/07/18 07:04 Dose: 40 mg Admin: 08/06/18 13:30 Dose: 40 mg Admin: 08/05/18 07:07 Dose: 40 mg Loratadine/ (Pseudoephedrine) 0 each PO DAILY [facility] Last Admin: 08/06/18 13:24 Dose: Admin: 08/05/18 09:06 Dose: Divalproex Sodium (500 Mg Tab.Er) 0 each PO DAILY ROBERT Senna (Senna) 8.6 mg PO BID PRN PRN Reason: Constipation - Assessment Assessment (Free Text/Narrative):: POD#3 - s/p right TKA and POD#1 s/p retrograde IM selam placement for right femoral shaft fracture - Plan Plan (Free Text/Narrative):: 1. Hgb 7.1. Hospitalist has ordered blood transfusion. 2. Likely d/c to [facility] tomorrow for continued rehab. 3. Pain controlled. 4. Continue with PT and OT. 50% weight bearing RLE. The pt's case was discussed with Dr. Patel.
[2018-08-07] MEDS: Nicotine 21 MG/24 Hr Patch TRDERM SCH (08:15)
[2018-08-07] MEDS: buPROPion 150 MG Tab.ER PO SCH (08:15)
[2018-08-07] MEDS: LORATADINE PO SCH (08:15)
[2018-08-07] MEDS: Doxycycline 100 MG Cap PO SCH (08:15)
[2018-08-07] MEDS: PSEUDOEPHEDRINE PO SCH (08:15)
[2018-08-07] MEDS: Docusate Sodium 100 MG Cap PO SCH ×2 (08:15→20:11)
[2018-08-07] MEDS: Multivitamins,Therapeutic Tab PO SCH (08:15)
[2018-08-07] MEDS: Cholecalciferol (Vitamin D3) 5,000 UNIT Tab PO SCH (08:15)
[2018-08-07] MEDS: FLUoxetine 20 MG Cap PO SCH (08:45)
[2018-08-07] MEDS: Magnesium Oxide 400 MG Tab PO SCH (08:45)
[2018-08-07] MEDS ORDERED: DIVALPROEX SODIUM 1000 MG PO SCH (09:00)
[2018-08-07] MEDS ORDERED: Divalproex Sodium 500 MG Tab.ER ONE (09:00)
[2018-08-07] MEDS ORDERED: Divalproex Sodium 500 MG Tab.ER PO SCH (09:00)
--- NOTE | 2018-08-07 10:24 | PCM48HPAN ---
Post Anesthesia Note - EVALUATION WITHIN 48HRS OF ANESTHETIC Vital Signs in Normal Range: Yes Patient Participated in Evaluation: Yes Respiratory Function Stable: Yes Airway Patent: Yes Cardiovascular Function Stable: Yes Hydration Status Stable: Yes Pain Control Satisfactory: Yes Nausea and Vomiting Control Satisfactory: Yes Mental Status Recovered: Yes Pulse Rate: 88 Resp Rate: 16 Temperature: 36.9 C Blood Pressure: 127/46 - COMMENTS/OBSERVATIONS Free Text/Narrative:: Patient receiving blood this am. Reports numbness to right lower leg "getting better". VSS
[2018-08-07] MEDS ORDERED: Sodium Chloride 0.9% 250 ML ONE (10:48)
[2018-08-07] MEDS: Rivaroxaban 10 MG Tab PO SCH (13:01)
[2018-08-07] MEDS: Cyclobenzaprine 10 MG Tab PO PRN (17:10)
[2018-08-08] MEDS: Acetaminophen/oxyCODONE 325-5 MG Tab PO PRN ×3 (00:28→09:42)
[2018-08-08] MEDS: HYDROmorphone 1 MG/ML Syringe IVPUSH PRN (00:53)
[2018-08-08] MEDS: Pantoprazole 40 MG Tab.CR PO SCH (06:25)
--- NOTE | 2018-08-08 06:35 | PCM.CONSN ---
- General Info Date of Service: 08/08/18 Admission Dx/Problem (Free Text): Admission Diagnosis/Problem Admission Diagnosis/Problem Osteoarthritis of knee Subjective Update: In to see Adelaida. She is sitting up in bed. She reports her pain is a bit worse today as expected. She is otherwise in good spirits. Hgb increased to 10.8. Rx to re-check hgb on 08/11/18 with results to PCP. No other concerns from hospitalist standpoint. She is cleared for discharge from our perspective to [facility] for a rehab stay. Functional Status: Reports: Pain Controlled, Tolerating Diet, Ambulating, Urinating, Incentive Spirometry. Denies: New Symptoms - Review of Systems General: Reports: Weakness (improving ). Denies: Fever, Fatigue, Malaise, Chills HEENT: Reports: No Symptoms. Denies: Headaches, Sore Throat Pulmonary: Reports: No Symptoms. Denies: Shortness of Breath, Pleuritic Chest Pain, Sputum, Wheezing Cardiovascular: Reports: No Symptoms. Denies: Chest Pain, Palpitations, Dyspnea on Exertion, Edema Gastrointestinal: Reports: No Symptoms. Denies: Abdominal Pain, Constipation, Diarrhea, Nausea, Vomiting Genitourinary: Reports: No Symptoms. Denies: Pain Musculoskeletal: Reports: Leg Pain (right leg) Skin: Reports: No Symptoms. Denies: Cyanosis Neurological: Reports: Difficulty Walking, Gait Disturbance. Denies: Confusion , Headache, Numbness, Pre-Existing Deficit, Tingling, Tremors, Trouble Speaking Psychiatric: Reports: No Symptoms - Patient Data Vitals - Most Recent: Last Vital Signs Temp 98.1 F 08/08/18 04:45 Pulse 78 08/08/18 04:45 Resp 18 08/08/18 04:45 BP 128/68 08/08/18 04:45 Pulse Ox 94 L 08/08/18 04:45 Weight - Most Recent: 177 lb 6.4 oz I&O - Last 24 Hours: Intake & Output 08/07/18 08/07/18 08/08/18 14:59 22:59 06:59 Intake Total 735 1310 500 Output Total 100 1150 Balance 735 1210 -650 Lab Results Last 24 Hours: Laboratory Results - last 24 hr 08/07/18 08/07/18 08/07/18 Range/Units 05:52 05:52 05:52 WBC 4.63 (3.98-10.04) K/mm3 RBC 2.67 L (3.98-5.22) M/mm3 Hgb 7.1 L* (11.2-15.7) gm/L Hct 22.8 L (34.1-44.9) % MCV 85.4 (79.4-94.8) fl MCH 26.6 (25.6-32.2) pg MCHC 31.1 L (32.2-35.5) g/dl RDW Std Deviation 50.3 H (36.4-46.3) fL Plt Count 145 L (182-369) K/mm3 MPV 11.9 (9.4-12.3) fl Neut % (Auto) 48.0 (34.0-71.1) % Lymph % (Auto) 36.1 (19.3-51.7) % [place] % (Auto) 14.7 H (4.7-12.5) % Eos % (Auto) 0.6 L (0.7-5.8) Baso % (Auto) 0.2 (0.1-1.2) % Neut # (Auto) 2.22 (1.56-6.13) K/mm3 Lymph # (Auto) 1.67 (1.18-3.74) K/mm3 [place] # (Auto) 0.68 H (0.24-0.36) K/mm3 Eos # (Auto) 0.03 L (0.04-0.36) K/mm3 Baso # (Auto) 0.01 (0.01-0.08) K/mm3 Manual Slide Review Abnormal smear Sodium 143 (136-145) mEq/L Potassium 4.3 (3.5-5.1) mEq/L Chloride 108 H (98-107) mEq/L Carbon Dioxide 30 (21-32) mEq/L Anion Gap 9.3 (5-15) BUN 12 (7-18) mg/dL Creatinine 1.1 H (0.55-1.02) mg/dL Est Cr Clr Drug Dosing 47.78 mL/min Estimated GFR (MDRD) 52 (>60) mL/min BUN/Creatinine Ratio 10.9 L (14-18) Glucose 99 (74-106) mg/dL Calcium 8.4 L (8.5-10.1) mg/dL Magnesium 1.6 L (1.8-2.4) mg/dl Total Bilirubin 0.3 (0.2-1.0) mg/dL AST 61 H (15-37) U/L ALT 44 (14-59) U/L Alkaline Phosphatase 83 (46-116) U/L Total Protein 4.7 L (6.4-8.2) g/dl Albumin 2.3 L (3.4-5.0) g/dl Globulin 2.4 gm/dL Albumin/Globulin Ratio 1.0 (1-2) Blood Type Gel Antibody Screen Crossmatch 08/07/18 08/08/18 Range/Units 05:52 05:20 WBC 5.73 (3.98-10.04) K/mm3 RBC 3.93 L (3.98-5.22) M/mm3 Hgb 10.8 L (11.2-15.7) gm/L Hct 33.2 L (34.1-44.9) % MCV 84.5 (79.4-94.8) fl MCH 27.5 (25.6-32.2) pg MCHC 32.5 (32.2-35.5) g/dl RDW Std Deviation 48.2 H (36.4-46.3) fL Plt Count 152 L (182-369) K/mm3 MPV 11.6 (9.4-12.3) fl Neut % (Auto) 55.0 (34.0-71.1) % Lymph % (Auto) 28.4 (19.3-51.7) % [place] % (Auto) 13.1 H (4.7-12.5) % Eos % (Auto) 2.8 (0.7-5.8) Baso % (Auto) 0.2 (0.1-1.2) % Neut # (Auto) 3.15 (1.56-6.13) K/mm3 Lymph # (Auto) 1.63 (1.18-3.74) K/mm3 [place] # (Auto) 0.75 H (0.24-0.36) K/mm3 Eos # (Auto) 0.16 (0.04-0.36) K/mm3 Baso # (Auto) 0.01 (0.01-0.08) K/mm3 Manual Slide Review Sodium (136-145) mEq/L Potassium (3.5-5.1) mEq/L Chloride (98-107) mEq/L Carbon Dioxide (21-32) mEq/L Anion Gap (5-15) BUN (7-18) mg/dL Creatinine (0.55-1.02) mg/dL Est Cr Clr Drug Dosing mL/min Estimated GFR (MDRD) (>60) mL/min BUN/Creatinine Ratio (14-18) Glucose (74-106) mg/dL Calcium (8.5-10.1) mg/dL Magnesium (1.8-2.4) mg/dl Total Bilirubin (0.2-1.0) mg/dL AST (15-37) U/L ALT (14-59) U/L Alkaline Phosphatase (46-116) U/L Total Protein (6.4-8.2) g/dl Albumin (3.4-5.0) g/dl Globulin gm/dL Albumin/Globulin Ratio (1-2) Blood Type B POSITIVE Gel Antibody Screen Negative Crossmatch See Detail Med Orders - Current: Current Medications Bisacodyl (Dulcolax) 5 mg PO DAILY PRN PRN Reason: Constipation Last Admin: 08/07/18 15:57 Dose: 5 mg Bupropion HCl (Wellbutrin Xl) 450 mg PO DAILY COUNT INCLUDES THE [facility] Last Admin: 08/07/18 08:15 Dose: 450 mg Cholecalciferol (Vitamin D3) 5,000 unit PO DAILY COUNT INCLUDES THE [facility] Last Admin: 08/07/18 08:15 Dose: 5,000 unit Cyclobenzaprine HCl (Flexeril) 10 mg PO TID PRN PRN Reason: Spasms Last Admin: 08/07/18 17:10 Dose: 10 mg Dicyclomine HCl (Bentyl) 20 mg PO QID PRN PRN Reason: Pain Last Admin: 08/06/18 13:33 Dose: 20 mg Divalproex Sodium (Depakote Er) 1,000 mg PO DAILY COUNT INCLUDES THE [facility] Docusate Sodium (Colace) 100 mg PO BID COUNT INCLUDES THE [facility] Last Admin: 08/07/18 20:11 Dose: 100 mg Doxycycline Hyclate (Vibramycin) 100 mg PO DAILY COUNT INCLUDES THE [facility] Last Admin: 08/07/18 08:15 Dose: 100 mg Fluoxetine HCl (Prozac) 20 mg PO DAILY COUNT INCLUDES THE [facility] Last Admin: 08/07/18 08:45 Dose: 20 mg Hydromorphone HCl (Dilaudid) 0.2 mg IVPUSH Q2H PRN PRN Reason: Pain Last Admin: 08/08/18 00:53 Dose: 0.2 mg Magnesium Hydroxide (Milk Of Magnesia) 30 ml PO BID PRN PRN Reason: Constipation Magnesium Oxide (Magnesium Oxide) 400 mg PO DAILY COUNT INCLUDES THE [facility] Last Admin: 08/07/18 08:45 Dose: 400 mg Miscellaneous Information (Remove Patch) 1 ea TRDERM DAILY COUNT INCLUDES THE [facility] Last Admin: 08/07/18 12:52 Dose: 1 ea Multivitamins (Thera) 1 each PO DAILY COUNT INCLUDES THE [facility] Last Admin: 08/07/18 08:15 Dose: 1 each Naloxone HCl (Narcan) 0.1 mg IVPUSH Q5M PRN PRN Reason: Oversedation Nicotine (Habitrol) 21 mg TRDERM DAILY COUNT INCLUDES THE [facility] Last Admin: 08/07/18 08:15 Dose: 21 mg Ondansetron HCl (Zofran) 4 mg IVPUSH Q6H PRN PRN Reason: Nausea/Vomiting Last Admin: 08/08/18 00:27 Dose: 4 mg Oxycodone/Acetaminophen (Percocet 325-5 Mg) 1 - 2 tab PO Q4H PRN PRN Reason: Pain Last Admin: 08/08/18 04:42 Dose: 2 tab Pantoprazole Sodium (Protonix) 40 mg PO DAILY@0700 COUNT INCLUDES THE [facility] Last Admin: 08/08/18 06:25 Dose: 40 mg Loratadine/ (Pseudoephedrine) 0 each PO DAILY COUNT INCLUDES THE [facility] Last Admin: 08/07/18 08:15 Dose: Not Given Rivaroxaban (Xarelto) 10 mg PO DAILY COUNT INCLUDES THE [facility] Stop: 09/05/18 09:01 Last Admin: 08/07/18 13:01 Dose: 10 mg Senna (Senna) 8.6 mg PO BID PRN PRN Reason: Constipation Last Admin: 08/08/18 00:27 Dose: 8.6 mg Discontinued Medications Acetaminophen (Tylenol) 975 mg PO ONETIME COUNT INCLUDES THE [facility] Stop: 08/04/18 12:00 Last Admin: 08/04/18 10:27 Dose: 975 mg Bupivacaine HCl (Marcaine 0.25%) Confirm Administered Dose 30 ml .ROUTE .[facility] ONE Stop: 08/04/18 10:01 Last Admin: 08/04/18 13:27 Dose: 30 ml Bupivacaine HCl (Marcaine 0.25%) Confirm Administered Dose 30 ml .ROUTE .STK- MED ONE Stop: 08/06/18 06:30 Last Admin: 08/06/18 08:31 Dose: 30 ml Cefazolin Sodium (Ancef) Confirm Administered Dose 2 gm .ROUTE .STK-MED ONE Stop: 08/04/18 10:00 Last Admin: 08/04/18 13:22 Dose: 2 gm Cefazolin Sodium (Ancef) Confirm Administered Dose 2 gm .ROUTE .STK-MED ONE Stop: 08/04/18 10:58 Cefazolin Sodium (Ancef) Confirm Administered Dose 2 gm .ROUTE .STK-MED ONE Stop: 08/06/18 06:29 Last Admin: 08/06/18 08:25 Dose: 2 gm Cefazolin Sodium (Ancef) Confirm Administered Dose 2 gm .ROUTE .STK-MED ONE Stop: 08/06/18 06:37 Morphine Sulfate 8 mg/Epinephrine HCl 0.3 mg/Cefuroxime Sodium 750 mg/Ketorolac Tromethamine 30 mg/Sodium Chloride 27.9 ml 0 mg .XX ONETIME ONE Stop: 08/04/18 12:01 Last Admin: 08/04/18 15:29 Dose: Not Given Diphenhydramine HCl (Benadryl) 25 mg IVPUSH Q6H PRN PRN Reason: itching Stop: 08/04/18 16:00 Divalproex Sodium (Depakote) 500 mg PO DAILY ROBERT Last Admin: 08/05/18 09:01 Dose: 500 mg Divalproex Sodium (Depakote Er) 1,000 mg .ROUTE .STK-MED ONE Stop: 08/06/18 15:16 Divalproex Sodium (Depakote Er) 1,000 mg .ROUTE .STK-MED ONE Stop: 08/07/18 09:01 Epinephrine HCl (Adrenalin) Confirm Administered Dose 1 mg .ROUTE .STK-MED ONE Stop: 08/04/18 07:54 Fentanyl (Sublimaze) Confirm Administered Dose 100 mcg .ROUTE .STK-MED ONE Stop: 08/04/18 10:58 Fentanyl (Sublimaze) 50 mcg IVPUSH Q5M PRN PRN Reason: pain Stop: 08/04/18 16:00 Fentanyl (Sublimaze) Confirm Administered Dose 250 mcg .ROUTE .STK-MED ONE Stop: 08/06/18 06:37 Fentanyl (Sublimaze) Confirm Administered Dose 100 mcg .ROUTE .STK-MED ONE Stop: 08/06/18 08:12 Fentanyl (Sublimaze) 50 mcg IVPUSH Q5M PRN PRN Reason: Pain Stop: 08/06/18 12:00 Last Admin: 08/06/18 09:57 Dose: 50 mcg Hydromorphone HCl (Dilaudid) 0.2 mg IVPUSH Q2H PRN PRN Reason: Pain Hydromorphone HCl (Dilaudid) Confirm Administered Dose 0.5 mg .ROUTE .STK-MED ONE Stop: 08/06/18 08:09 Hydromorphone HCl (Dilaudid) Confirm Administered Dose 0.5 mg .ROUTE .STK-MED ONE Stop: 08/06/18 08:10 Hydromorphone HCl (Dilaudid) 0.5 mg IVPUSH Q10M PRN PRN Reason: Pain (severe 7-10) Stop: 08/06/18 12:00 Lactated Ringer's (Ringers, Lactated) 1,000 mls @ 125 mls/hr IV ASDIRECTED COUNT INCLUDES THE [facility] Stop: 08/04/18 23:00 Last Admin: 08/04/18 10:10 Dose: 125 mls/hr Cefazolin Sodium/Dextrose 2 gm (/ Premix) 50 mls @ 100 mls/hr IV Q8H COUNT INCLUDES THE [facility] Stop: 08/05/18 10:29 Last Admin: 08/05/18 11:10 Dose: 100 mls/hr Lactated Ringer's (Ringers, Lactated) Confirm Administered Dose 1,000 mls @ as directed .ROUTE .STK-MED ONE Stop: 08/04/18 13:10 Sodium Chloride (Normal Saline) 500 mls @ 20 drops/min IV .BOLUS ONE Stop: 08/05/18 14:10 Last Admin: 08/05/18 08:55 Dose: 999 drops/min Sodium Chloride (Normal Saline) 1,000 mls @ 100 mls/hr IV ASDIRECTED COUNT INCLUDES THE [facility] Last Admin: 08/05/18 23:26 Dose: 100 mls/hr Cefazolin Sodium/Dextrose 2 gm (/ Premix) 50 mls @ 100 mls/hr IV Q8H ROBERT Stop: 08/07/18 07:29 Last Admin: 08/07/18 07:04 Dose: 100 mls/hr Lactated Ringer's (Ringers, Lactated) Confirm Administered Dose 1,000 mls @ as directed .ROUTE .STK-MED ONE Stop: 08/06/18 10:50 Lactated Ringer's (Ringers, Lactated) Confirm Administered Dose 1,000 mls @ as directed .ROUTE .STK-MED ONE Stop: 08/06/18 10:50 Magnesium Sulfate 2 gm/ Premix 50 mls @ 25 mls/hr IV ONETIME ONE Stop: 08/07/18 09:05 Last Admin: 08/07/18 08:23 Dose: 25 mls/hr Sodium Chloride (Normal Saline) Confirm Administered Dose 250 mls @ as directed .ROUTE .STK-MED ONE Stop: 08/07/18 10:49 Last Admin: 08/07/18 12:54 Dose: 100 mls/hr Iodine (Iodine 2% Mild Tincture) Confirm Administered Dose 30 ml .ROUTE .STK- MED ONE Stop: 08/04/18 10:01 Last Admin: 08/04/18 13:20 Dose: 18 ml Iodine (Iodine 2% Mild Tincture) Confirm Administered Dose 30 ml .ROUTE .STK- MED ONE Stop: 08/06/18 06:30 Last Admin: 08/06/18 08:17 Dose: 18 ml Ketorolac Tromethamine (Toradol) 15 mg IVPUSH Q6H PRN PRN Reason: Pain Last Admin: 08/05/18 07:11 Dose: 15 mg Ketorolac Tromethamine (Toradol) 15 mg IVPUSH Q6H PRN PRN Reason: Pain Last Admin: 08/07/18 15:54 Dose: 15 mg Ketorolac Tromethamine (Toradol) 30 mg IVPUSH ONETIME PRN PRN Reason: Pain Stop: 08/06/18 12:00 Lidocaine/Sodium Bicarbonate (Buffered Lidocaine 1% In Ns 8.4%) 0.25 ml IDERM ONETIME PRN PRN Reason: Prior to IV Start Stop: 08/04/18 18:00 Last Admin: 08/04/18 10:10 Dose: 0.25 ml Metoclopramide HCl (Reglan) 10 mg IVPUSH ONETIME PRN PRN Reason: Nausea/Vomiting Stop: 08/04/18 17:00 Midazolam HCl (Versed 1 Mg/Ml) Confirm Administered Dose 2 mg .ROUTE .STK-MED ONE Stop: 08/04/18 10:58 Midazolam HCl (Versed 1 Mg/Ml) Confirm Administered Dose 2 mg .ROUTE .STK-MED ONE Stop: 08/06/18 06:37 Miscellaneous Information (Remove Patch) 0 ea TRDERM ONETIME ONE Stop: 08/07/18 10:31 Last Admin: 08/07/18 12:53 Dose: 1 ea Morphine Sulfate (Morphine) 2 mg IVPUSH Q2H PRN PRN Reason: Breakthrough Pain Non-Formulary Medication (Ondansetron) 4 mg PO Q8H PRN PRN Reason: Nausea/Vomiting Ondansetron HCl (Zofran) 4 mg IVPUSH ONETIME PRN PRN Reason: Nausea/Vomiting Stop: 08/04/18 18:00 Ondansetron HCl (Zofran) Confirm Administered Dose 4 mg .ROUTE .STK-MED ONE Stop: 08/06/18 06:36 Oxycodone HCl (Oxycontin) 10 mg PO ONETIME COUNT INCLUDES THE [facility] Stop: 08/04/18 12:00 Last Admin: 08/04/18 10:27 Dose: 10 mg Divalproex Sodium (500 Mg Tab.Er) 0 each PO DAILY COUNT INCLUDES THE [facility] Last Admin: 08/06/18 13:59 Dose: Not Given Divalproex Sodium (500 Mg Tab.Er Ptom) 0 each PO ONETIME ONE Stop: 08/06/18 15:16 Last Admin: 08/06/18 16:01 Dose: 1 each Divalproex Sodium (500 Mg Tab.Er) 0 each PO DAILY COUNT INCLUDES THE [facility] Last Admin: 08/07/18 08:45 Dose: 2 each Pregabalin (Lyrica) 50 mg PO ONETIME COUNT INCLUDES THE [facility] Stop: 08/04/18 12:00 Last Admin: 08/04/18 10:27 Dose: 50 mg Propofol (Diprivan 20 Ml) Confirm Administered Dose 600 mg .ROUTE .STK-MED ONE Stop: 08/04/18 10:56 Propofol (Diprivan 20 Ml) Confirm Administered Dose 200 mg .ROUTE .STK-MED ONE Stop: 08/06/18 06:37 Rivaroxaban (Xarelto) 10 mg PO DAILY ROBERT Rocuronium [place] (Zemuron) Confirm Administered Dose 50 mg .ROUTE .STK-MED ONE Stop: 08/06/18 06:36 Ropivacaine (Naropin 0.5%) Confirm Administered Dose 30 ml .ROUTE .STK-MED ONE Stop: 08/04/18 07:54 Scopolamine (Transderm-Scop) 1.5 mg TRDERM ONETIME ROBERT Last Admin: 08/04/18 10:27 Dose: 1.5 mg Sodium Chloride (Saline Flush) 10 ml FLUSH ASDIRECTED PRN PRN Reason: Keep Vein Open Stop: 08/04/18 18:00 Tranexamic Acid (Cyklokapron) Confirm Administered Dose 1,000 mg .ROUTE .STK- MED ONE Stop: 08/04/18 10:00 Last Admin: 08/04/18 13:35 Dose: 1,000 mg Tranexamic Acid (Cyklokapron) Confirm Administered Dose 1,000 mg .ROUTE .STK- MED ONE Stop: 08/06/18 06:29 Last Admin: 08/06/18 08:34 Dose: 1,000 mg Vancomycin HCl (Vancomycin) Confirm Administered Dose 1 gm .ROUTE .STK-MED ONE Stop: 08/04/18 10:00 Last Admin: 08/04/18 13:30 Dose: 1 gm Vancomycin HCl (Vancomycin) Confirm Administered Dose 1 gm .ROUTE .STK-MED ONE Stop: 08/06/18 06:31 Last Admin: 08/06/18 08:33 Dose: 1 gm - Exam Quality Assessment: DVT Prophylaxis. No: Supplemental Oxygen, Urine Catheter General: Alert, Oriented, Cooperative, No Acute Distress HEENT: Pupils Equal, Pupils Reactive, EOMI, Mucous Membr. Moist/[place] Neck: Supple, Trachea Midline, No JVD Lungs: Clear to Auscultation, Normal Respiratory Effort Cardiovascular: Regular Rate, Regular Rhythm GI/Abdominal Exam: Normal Bowel Sounds, Soft, Non-Tender, No Organomegaly, No Distention (Female) Exam: Deferred Back Exam: Normal Inspection, Full Range of Motion Extremities: No Pedal Edema, Normal Capillary Refill, Leg Pain, Limited Range of Motion, Other (Bandage in place on right leg. Cooling pack in place, ) Peripheral Pulses: 2+: Radial (L), Radial (R), Dorsalis Pedis (L), Dorsalis Pedis (R) Skin: Warm, Dry, Intact Wound/Incisions: Dressing Dry and Intact, No Drainage Neurological: No New Focal Deficit Psy/Mental Status: Alert, Normal Affect, Normal Mood Consult PN Assessment/Plan POD#: 3 Procedures: Procedures AQUATIC THERAPY/EXERCISES (06/13/18) ASSAY OF PREALBUMIN (07/21/18) ASSAY THYROID STIM HORMONE (07/21/18) CARDIOVASCULAR STRESS TEST (03/06/18) COMPLETE CBC AUTOMATED (07/21/18) COMPREHEN METABOLIC PANEL (07/21/18) CT HEAD/BRAIN W/O DYE (12/26/17) EMERGENCY DEPT VISIT (12/26/17) FIXATION OF KNEE JOINT (05/28/18) GAIT TRAINING THERAPY (06/11/18) HT MUSCLE IMAGE SPECT MULT (03/06/18) MANUAL THERAPY 1/> REGIONS (06/11/18) MASSAGE THERAPY (06/11/18) MR-STAPH DNA AMP PROBE (07/21/18) PROTHROMBIN TIME (03/03/18) PT EVAL MOD COMPLEX 30 MIN (05/02/18) ROUTINE VENIPUNCTURE (07/21/18) THER/PROPH/DIAG INJ IV PUSH (12/26/17) THERAPEUTIC EXERCISES (06/11/18) THROMBOPLASTIN TIME PARTIAL (07/21/18) TX/PRO/DX INJ NEW DRUG ADDON (12/26/17) URINALYSIS AUTO W/O SCOPE (07/21/18) URINALYSIS AUTO W/SCOPE (03/03/18) X-RAY EXAM CHEST 2 VIEWS (03/03/18) (1) Femur fracture, right SNOMED Code(s): 89080944 Code(s): S72.91XA - UNSP FRACTURE OF RIGHT FEMUR, INIT FOR CLOS FX Priority : High Qualifiers: Encounter type: initial encounter Femur location: unspecified portion of femur Fracture type: closed Fracture morphology: unspecified fracture morphology Qualified Code(s): S72.91XA - Unspecified fracture of right femur, initial encounter for closed fracture (2) Acute renal injury SNOMED Code(s): 71137419 Code(s): N17.9 - ACUTE KIDNEY FAILURE, UNSPECIFIED Priority: High (3) Migraine headache SNOMED Code(s): 01868751 Code(s): G43.909 - MIGRAINE, UNSP, NOT INTRACTABLE, WITHOUT STATUS MIGRAINOSUS Priority: Low Qualifiers: Migraine type: unspecified Status migrainosus presence: without status migrainosus Intractability: not intractable Qualified Code(s): G43.909 - Migraine, unspecified, not intractable, without status migrainosus (4) Osteoarthritis SNOMED Code(s): 941803855 Code(s): M19.90 - UNSPECIFIED OSTEOARTHRITIS, UNSPECIFIED SITE Priority: High Qualifiers: Osteoarthritis location: knee Osteoarthritis type: unspecified (5) S/P knee replacement SNOMED Code(s): 494585921 Code(s): Z96.659 - PRESENCE OF UNSPECIFIED ARTIFICIAL KNEE JOINT Priority: High Qualifiers: Laterality: right Qualified Code(s): Z96.651 - Presence of right artificial knee joint (6) Hyperkalemia SNOMED Code(s): 75341495 Code(s): E87.5 - HYPERKALEMIA Priority: High (7) Tobacco use disorder SNOMED Code(s): 057781698 Code(s): F17.200 - NICOTINE DEPENDENCE, UNSPECIFIED, UNCOMPLICATED Priority : High (8) Postoperative anemia SNOMED Code(s): 214463341, 549619203 Code(s): D64.9 - ANEMIA, UNSPECIFIED Priority: High Problem List Initiated/Reviewed/Updated: Yes My Orders Last 24 Hours: My Active Orders 08/07/18 07:20 Transfuse Red Blood Cells [COMM] Stat 08/08/18 05:20 MAGNESIUM [CHEM] AM 08/09/18 05:11 CBC WITH AUTO DIFF [HEME] AM MAGNESIUM [CHEM] AM Plan: I/P: Acute: Post-operative anemia -Hgb preoperatively was 13.6-->10.0-->8.4-->7.1-->10.8 -Pale and feels weak -Type and screen -2 units ordered -Monitor S/P Right femur fracture with intramedullary nailing of right femoral shaft fracture; Post-operative day 2 -2/2 fall after TKA -Management per primary team -Plan for surgery morning of 08/06/18 -NPO after midnight -> resume normal diet -Insert dobson catheter to minimize movement -> discontinued -Bedrest -> discontinue -Hold pharmacologic anticoagulation, continue SCDs -> resume -Monitor labs as below -Continue PT/OT -May require placement after surgery for rehab stay -Consult CM/SW S/P right total knee arthroplasty - post-operative day 4 -DVT prophylaxis and pain management per primary care team -PT/OT -IS/RT -Monitor oxygen saturation -Titrate oxygen as needed -Vital signs stable -Monitor labs -Pre-operative Hgb was 13.6; Now 10.0-->8.4 (receiving IV fluids)-->7.1--> 10.8 -Pre-operative GFR was 58; Now 47-->52 Osteoarthritis of right knee -Pain management per primary care team JONO, stable -History of similar labs after last TKA -Baseline GFR was 58 with creatinine of 1.0 -BUN 19-->21-->23-->18-->12-->14 -Creatinine 1.2-->1.6-->1.6-->1.1-->1.1-->1.0 -eGFR 47-->33-->33-->52-->52-->58 -IV fluids as ordered -Monitor Tobacco use disorder -Smokes 0.5 PPD for past 20 years -Nicotine patch -Cessation counseling Hypomagnesemia -Magnesium 1.6-->1.7 -Supplemented IV -Resume home supplementation on discharge. Resolved: Hyperkalemia -Potassium 5.3-->4.3 -IV fluids as ordered -Repeat BMP today Chronic: Acne OA Depression Anxiety GERD IBS Migraine RA Abnormal EKG with Q waves in inferior leads Colitis Gastric bypass Plan: CM for discharge planning -> Rehab stay GI prophylaxis Home medications as indicated Other orders as listed above Routine AM labs She is a full code. Her PCP is Cleo Soto PA-C; Dr. Rivera will be following at [facility] From a hospitalist standpoint Adelaida is doing well. Her hemoglobin has improved to 10.8 today. Recommend recheck on Saturday08/11/18 to ensure this remains stable. Results of this should be forwarded to her PCP. Otherwise she has been working with therapies and ambulating. She has urinated and is off of oxygen. Her magnesium has been low here and has been supplemented. Suspect this is secondary to poor intake and is a chronic condition. She does have home magnesium supplementation this should continue. She has agreed to a rehabilitation stay at [facility]. She should continue PT/OT while there. She is a smoker who has been receiving nicotine patches while here. She will be prescribed patches at discharge. We discussed practical ways to stop smoking and assistance available such as [place] quits and the [place] unit. Her primary care provider will also be another resource. Otherwise she is cleared for discharge pending PT/OT and primary care treatment. Thank you for allowing us to participate in the care of this patient!!
[2018-08-08] MEDS ORDERED: Magnesium Sulfate/Water 2 GM in Premix Bag 1 BAG IV ONE (06:50)
[2018-08-08] MEDS: Magnesium Oxide 400 MG Tab PO SCH (08:23)
[2018-08-08] MEDS: Doxycycline 100 MG Cap PO SCH (08:23)
[2018-08-08] MEDS: Rivaroxaban 10 MG Tab PO SCH (08:23)
[2018-08-08] MEDS: Multivitamins,Therapeutic Tab PO SCH (08:23)
[2018-08-08] MEDS: Docusate Sodium 100 MG Cap PO SCH (08:23)
[2018-08-08] MEDS: Cholecalciferol (Vitamin D3) 5,000 UNIT Tab PO SCH (08:23)
[2018-08-08] MEDS: Cyclobenzaprine 10 MG Tab PO PRN (08:24)
[2018-08-08] MEDS: Nicotine 21 MG/24 Hr Patch TRDERM SCH (08:24)
[2018-08-08] MEDS: FLUoxetine 20 MG Cap PO SCH (08:24)
[2018-08-08] MEDS: buPROPion 150 MG Tab.ER PO SCH (08:24)
[2018-08-08] MEDS: PSEUDOEPHEDRINE PO SCH (08:25)
[2018-08-08] MEDS: LORATADINE PO SCH (08:25)
--- NOTE | 2018-08-08 08:34 | PCM.SURGPN ---
- General Info Date of Service: 08/08/18 POD#: 4 Functional Status: Reports: Pain Controlled, Tolerating Diet, Ambulating, Urinating, Incentive Spirometry, Other (The pt states she is prepared for discharge to [facility] for continued rehabilitation.) - Review of Systems Musculoskeletal: Reports: Other (The pt reports altered sensation at RLE has resolved.) - Patient Data Vitals - Most Recent: Last Vital Signs Temp 98.1 F 08/08/18 04:45 Pulse 78 08/08/18 04:45 Resp 18 08/08/18 04:45 BP 128/68 08/08/18 04:45 Pulse Ox 94 L 08/08/18 04:45 Weight - Most Recent: 177 lb 6.4 oz I&O - Last 24 Hours: Intake & Output 08/07/18 08/08/18 08/08/18 22:59 06:59 14:59 Intake Total 1310 500 Output Total 100 1150 Balance 1210 -650 Lab Results Last 24 Hrs: Laboratory Results - last 24 hr 08/07/18 08/08/18 08/08/18 Range/Units 05:52 05:20 05:20 WBC 5.73 (3.98-10.04) K/mm3 RBC 3.93 L (3.98-5.22) M/mm3 Hgb 10.8 L (11.2-15.7) gm/L Hct 33.2 L (34.1-44.9) % MCV 84.5 (79.4-94.8) fl MCH 27.5 (25.6-32.2) pg MCHC 32.5 (32.2-35.5) g/dl RDW Std Deviation 48.2 H (36.4-46.3) fL Plt Count 152 L (182-369) K/mm3 MPV 11.6 (9.4-12.3) fl Neut % (Auto) 55.0 (34.0-71.1) % Lymph % (Auto) 28.4 (19.3-51.7) % [place] % (Auto) 13.1 H (4.7-12.5) % Eos % (Auto) 2.8 (0.7-5.8) Baso % (Auto) 0.2 (0.1-1.2) % Neut # (Auto) 3.15 (1.56-6.13) K/mm3 Lymph # (Auto) 1.63 (1.18-3.74) K/mm3 [place] # (Auto) 0.75 H (0.24-0.36) K/mm3 Eos # (Auto) 0.16 (0.04-0.36) K/mm3 Baso # (Auto) 0.01 (0.01-0.08) K/mm3 Magnesium 1.7 L (1.8-2.4) mg/dl Blood Type B POSITIVE Gel Antibody Screen Negative Crossmatch See Detail Med Orders - Current: Current Medications Bisacodyl (Dulcolax) 5 mg PO DAILY PRN PRN Reason: Constipation Last Admin: 08/07/18 15:57 Dose: 5 mg Bupropion HCl (Wellbutrin Xl) 450 mg PO DAILY [facility] Last Admin: 08/08/18 08:24 Dose: 450 mg Cholecalciferol (Vitamin D3) 5,000 unit PO DAILY [facility] Last Admin: 08/08/18 08:23 Dose: 5,000 unit Cyclobenzaprine HCl (Flexeril) 10 mg PO TID PRN PRN Reason: Spasms Last Admin: 08/08/18 08:24 Dose: 10 mg Dicyclomine HCl (Bentyl) 20 mg PO QID PRN PRN Reason: Pain Last Admin: 08/06/18 13:33 Dose: 20 mg Divalproex Sodium (Depakote Er) 1,000 mg PO DAILY [facility] Last Admin: 08/08/18 08:24 Dose: 1,000 mg Docusate Sodium (Colace) 100 mg PO BID [facility] Last Admin: 08/08/18 08:23 Dose: 100 mg Doxycycline Hyclate (Vibramycin) 100 mg PO DAILY [facility] Last Admin: 08/08/18 08:23 Dose: 100 mg Fluoxetine HCl (Prozac) 20 mg PO DAILY [facility] Last Admin: 08/08/18 08:24 Dose: 20 mg Hydromorphone HCl (Dilaudid) 0.2 mg IVPUSH Q2H PRN PRN Reason: Pain Last Admin: 08/08/18 00:53 Dose: 0.2 mg Magnesium Sulfate 2 gm/ Premix 50 mls @ 25 mls/hr IV ONETIME ONE Stop: 08/08/18 08:49 Last Admin: 08/08/18 08:20 Dose: 25 mls/hr Magnesium Hydroxide (Milk Of Magnesia) 30 ml PO BID PRN PRN Reason: Constipation Magnesium Oxide (Magnesium Oxide) 400 mg PO DAILY [facility] Last Admin: 08/08/18 08:23 Dose: 400 mg Miscellaneous Information (Remove Patch) 1 ea TRDERM DAILY [facility] Last Admin: 08/08/18 08:25 Dose: 1 ea Multivitamins (Thera) 1 each PO DAILY [facility] Last Admin: 08/08/18 08:23 Dose: 1 each Naloxone HCl (Narcan) 0.1 mg IVPUSH Q5M PRN PRN Reason: Oversedation Nicotine (Habitrol) 21 mg TRDERM DAILY [facility] Last Admin: 08/08/18 08:24 Dose: 21 mg Ondansetron HCl (Zofran) 4 mg IVPUSH Q6H PRN PRN Reason: Nausea/Vomiting Last Admin: 08/08/18 00:27 Dose: 4 mg Oxycodone/Acetaminophen (Percocet 325-5 Mg) 1 - 2 tab PO Q4H PRN PRN Reason: Pain Last Admin: 08/08/18 04:42 Dose: 2 tab Pantoprazole Sodium (Protonix) 40 mg PO DAILY@0700 [facility] Last Admin: 08/08/18 06:25 Dose: 40 mg Loratadine/ (Pseudoephedrine) 0 each PO DAILY [facility] Last Admin: 08/08/18 08:25 Dose: Not Given Rivaroxaban (Xarelto) 10 mg PO DAILY [facility] Stop: 09/05/18 09:01 Last Admin: 08/08/18 08:23 Dose: 10 mg Senna (Senna) 8.6 mg PO BID PRN PRN Reason: Constipation Last Admin: 08/08/18 00:27 Dose: 8.6 mg Discontinued Medications Acetaminophen (Tylenol) 975 mg PO ONETIME [facility] Stop: 08/04/18 12:00 Last Admin: 08/04/18 10:27 Dose: 975 mg Bupivacaine HCl (Marcaine 0.25%) Confirm Administered Dose 30 ml .ROUTE .STK- MED ONE Stop: 08/04/18 10:01 Last Admin: 08/04/18 13:27 Dose: 30 ml Bupivacaine HCl (Marcaine 0.25%) Confirm Administered Dose 30 ml .ROUTE .STK- MED ONE Stop: 08/06/18 06:30 Last Admin: 08/06/18 08:31 Dose: 30 ml Cefazolin Sodium (Ancef) Confirm Administered Dose 2 gm .ROUTE .STK-MED ONE Stop: 08/04/18 10:00 Last Admin: 08/04/18 13:22 Dose: 2 gm Cefazolin Sodium (Ancef) Confirm Administered Dose 2 gm .ROUTE .STK-MED ONE Stop: 08/04/18 10:58 Cefazolin Sodium (Ancef) Confirm Administered Dose 2 gm .ROUTE .STK-MED ONE Stop: 08/06/18 06:29 Last Admin: 08/06/18 08:25 Dose: 2 gm Cefazolin Sodium (Ancef) Confirm Administered Dose 2 gm .ROUTE .STK-MED ONE Stop: 08/06/18 06:37 Morphine Sulfate 8 mg/Epinephrine HCl 0.3 mg/Cefuroxime Sodium 750 mg/Ketorolac Tromethamine 30 mg/Sodium Chloride 27.9 ml 0 mg .XX ONETIME ONE Stop: 08/04/18 12:01 Last Admin: 08/04/18 15:29 Dose: Not Given Diphenhydramine HCl (Benadryl) 25 mg IVPUSH Q6H PRN PRN Reason: itching Stop: 08/04/18 16:00 Divalproex Sodium (Depakote) 500 mg PO DAILY [facility] Last Admin: 08/05/18 09:01 Dose: 500 mg Divalproex Sodium (Depakote Er) 1,000 mg .ROUTE .STK-MED ONE Stop: 08/06/18 15:16 Divalproex Sodium (Depakote Er) 1,000 mg .ROUTE .STK-MED ONE Stop: 08/07/18 09:01 Epinephrine HCl (Adrenalin) Confirm Administered Dose 1 mg .ROUTE .STK-MED ONE Stop: 08/04/18 07:54 Fentanyl (Sublimaze) Confirm Administered Dose 100 mcg .ROUTE .STK-MED ONE Stop: 08/04/18 10:58 Fentanyl (Sublimaze) 50 mcg IVPUSH Q5M PRN PRN Reason: pain Stop: 08/04/18 16:00 Fentanyl (Sublimaze) Confirm Administered Dose 250 mcg .ROUTE .STK-MED ONE Stop: 08/06/18 06:37 Fentanyl (Sublimaze) Confirm Administered Dose 100 mcg .ROUTE .STK-MED ONE Stop: 08/06/18 08:12 Fentanyl (Sublimaze) 50 mcg IVPUSH Q5M PRN PRN Reason: Pain Stop: 08/06/18 12:00 Last Admin: 08/06/18 09:57 Dose: 50 mcg Hydromorphone HCl (Dilaudid) 0.2 mg IVPUSH Q2H PRN PRN Reason: Pain Hydromorphone HCl (Dilaudid) Confirm Administered Dose 0.5 mg .ROUTE .STK-MED ONE Stop: 08/06/18 08:09 Hydromorphone HCl (Dilaudid) Confirm Administered Dose 0.5 mg .ROUTE .STK-MED ONE Stop: 08/06/18 08:10 Hydromorphone HCl (Dilaudid) 0.5 mg IVPUSH Q10M PRN PRN Reason: Pain (severe 7-10) Stop: 08/06/18 12:00 Lactated Ringer's (Ringers, Lactated) 1,000 mls @ 125 mls/hr IV ASDIRECTED [facility] Stop: 08/04/18 23:00 Last Admin: 08/04/18 10:10 Dose: 125 mls/hr Cefazolin Sodium/Dextrose 2 gm (/ Premix) 50 mls @ 100 mls/hr IV Q8H [facility] Stop: 08/05/18 10:29 Last Admin: 08/05/18 11:10 Dose: 100 mls/hr Lactated Ringer's (Ringers, Lactated) Confirm Administered Dose 1,000 mls @ as directed .ROUTE .STK-MED ONE Stop: 08/04/18 13:10 Sodium Chloride (Normal Saline) 500 mls @ 20 drops/min IV .BOLUS ONE Stop: 08/05/18 14:10 Last Admin: 08/05/18 08:55 Dose: 999 drops/min Sodium Chloride (Normal Saline) 1,000 mls @ 100 mls/hr IV ASDIRECTED [facility] Last Admin: 08/05/18 23:26 Dose: 100 mls/hr Cefazolin Sodium/Dextrose 2 gm (/ Premix) 50 mls @ 100 mls/hr IV Q8H [facility] Stop: 08/07/18 07:29 Last Admin: 08/07/18 07:04 Dose: 100 mls/hr Lactated Ringer's (Ringers, Lactated) Confirm Administered Dose 1,000 mls @ as directed .ROUTE .ST-MED ONE Stop: 08/06/18 10:50 Lactated Ringer's (Ringers, Lactated) Confirm Administered Dose 1,000 mls @ as directed .ROUTE .[facility] ONE Stop: 08/06/18 10:50 Magnesium Sulfate 2 gm/ Premix 50 mls @ 25 mls/hr IV ONETIME ONE Stop: 08/07/18 09:05 Last Admin: 08/07/18 08:23 Dose: 25 mls/hr Sodium Chloride (Normal Saline) Confirm Administered Dose 250 mls @ as directed .ROUTE .[facility] ONE Stop: 08/07/18 10:49 Last Admin: 08/07/18 12:54 Dose: 100 mls/hr Iodine (Iodine 2% Mild Tincture) Confirm Administered Dose 30 ml .ROUTE .[facility] ONE Stop: 08/04/18 10:01 Last Admin: 08/04/18 13:20 Dose: 18 ml Iodine (Iodine 2% Mild Tincture) Confirm Administered Dose 30 ml .ROUTE .[facility] ONE Stop: 08/06/18 06:30 Last Admin: 08/06/18 08:17 Dose: 18 ml Ketorolac Tromethamine (Toradol) 15 mg IVPUSH Q6H PRN PRN Reason: Pain Last Admin: 08/05/18 07:11 Dose: 15 mg Ketorolac Tromethamine (Toradol) 15 mg IVPUSH Q6H PRN PRN Reason: Pain Last Admin: 08/07/18 15:54 Dose: 15 mg Ketorolac Tromethamine (Toradol) 30 mg IVPUSH ONETIME PRN PRN Reason: Pain Stop: 08/06/18 12:00 Lidocaine/Sodium Bicarbonate (Buffered Lidocaine 1% In Ns 8.4%) 0.25 ml IDERM ONETIME PRN PRN Reason: Prior to IV Start Stop: 08/04/18 18:00 Last Admin: 08/04/18 10:10 Dose: 0.25 ml Metoclopramide HCl (Reglan) 10 mg IVPUSH ONETIME PRN PRN Reason: Nausea/Vomiting Stop: 08/04/18 17:00 Midazolam HCl (Versed 1 Mg/Ml) Confirm Administered Dose 2 mg .ROUTE .STK-MED ONE Stop: 08/04/18 10:58 Midazolam HCl (Versed 1 Mg/Ml) Confirm Administered Dose 2 mg .ROUTE .STK-MED ONE Stop: 08/06/18 06:37 Miscellaneous Information (Remove Patch) 0 ea TRDERM ONETIME ONE Stop: 08/07/18 10:31 Last Admin: 08/07/18 12:53 Dose: 1 ea Morphine Sulfate (Morphine) 2 mg IVPUSH Q2H PRN PRN Reason: Breakthrough Pain Non-Formulary Medication (Ondansetron) 4 mg PO Q8H PRN PRN Reason: Nausea/Vomiting Ondansetron HCl (Zofran) 4 mg IVPUSH ONETIME PRN PRN Reason: Nausea/Vomiting Stop: 08/04/18 18:00 Ondansetron HCl (Zofran) Confirm Administered Dose 4 mg .ROUTE .STK-MED ONE Stop: 08/06/18 06:36 Oxycodone HCl (Oxycontin) 10 mg PO ONETIME [facility] Stop: 08/04/18 12:00 Last Admin: 08/04/18 10:27 Dose: 10 mg Divalproex Sodium (500 Mg Tab.Er) 0 each PO DAILY [facility] Last Admin: 08/06/18 13:59 Dose: Not Given Divalproex Sodium (500 Mg Tab.Er Ptom) 0 each PO ONETIME ONE Stop: 08/06/18 15:16 Last Admin: 08/06/18 16:01 Dose: 1 each Divalproex Sodium (500 Mg Tab.Er) 0 each PO DAILY [facility] Last Admin: 08/07/18 08:45 Dose: 2 each Pregabalin (Lyrica) 50 mg PO ONETIME [facility] Stop: 08/04/18 12:00 Last Admin: 08/04/18 10:27 Dose: 50 mg Propofol (Diprivan 20 Ml) Confirm Administered Dose 600 mg .ROUTE .STK-MED ONE Stop: 08/04/18 10:56 Propofol (Diprivan 20 Ml) Confirm Administered Dose 200 mg .ROUTE .STK-MED ONE Stop: 08/06/18 06:37 Rivaroxaban (Xarelto) 10 mg PO DAILY [facility] Rocuronium [place] (Zemuron) Confirm Administered Dose 50 mg .ROUTE .STK-MED ONE Stop: 08/06/18 06:36 Ropivacaine (Naropin 0.5%) Confirm Administered Dose 30 ml .ROUTE .STK-MED ONE Stop: 08/04/18 07:54 Scopolamine (Transderm-Scop) 1.5 mg TRDERM ONETIME [facility] Last Admin: 08/04/18 10:27 Dose: 1.5 mg Sodium Chloride (Saline Flush) 10 ml FLUSH ASDIRECTED PRN PRN Reason: Keep Vein Open Stop: 08/04/18 18:00 Tranexamic Acid (Cyklokapron) Confirm Administered Dose 1,000 mg .ROUTE .STK- MED ONE Stop: 08/04/18 10:00 Last Admin: 08/04/18 13:35 Dose: 1,000 mg Tranexamic Acid (Cyklokapron) Confirm Administered Dose 1,000 mg .ROUTE .STK- MED ONE Stop: 08/06/18 06:29 Last Admin: 08/06/18 08:34 Dose: 1,000 mg Vancomycin HCl (Vancomycin) Confirm Administered Dose 1 gm .ROUTE .STK-MED ONE Stop: 08/04/18 10:00 Last Admin: 08/04/18 13:30 Dose: 1 gm Vancomycin HCl (Vancomycin) Confirm Administered Dose 1 gm .ROUTE .STK-MED ONE Stop: 08/06/18 06:31 Last Admin: 08/06/18 08:33 Dose: 1 gm - Exam Wound/Incisions: Dressing Dry and Intact General: Alert, Cooperative, No Acute Distress Lungs: Normal Respiratory Effort Extremities: Other (The pt was able to sense light touch at RLE. NVS intact for BLE. Aaron's negative for BLE.) - Problem List Review Problem List Initiated/Reviewed/Updated: Yes - My Orders Last 24 Hours: Active Orders 24 hr Category Date Time Status Ready for Discharge [RC] PER UNIT ROUTINE Care 08/08/18 07:50 Active BMP [BASIC METABOLIC PANEL,BMP] [CHEM] Stat Lab 08/08/18 05:20 Received CBC WITH AUTO DIFF [HEME] AM Lab 08/09/18 05:11 Ordered MAGNESIUM [CHEM] AM Lab 08/09/18 05:11 Ordered Divalproex Sodium [Depakote ER] Med 08/08/18 09:00 Active 1,000 mg PO DAILY Magnesium Sulfate/Water [Magnesium Sulfate 2 GM in Med 08/08/18 06:50 Active Water 50 ML] 2 gm Premix Bag 1 bag IV ONETIME Rivaroxaban [Xarelto] Med 08/07/18 12:30 Active 10 mg PO DAILY Medication Orders Bisacodyl (Dulcolax) 5 mg PO DAILY PRN PRN Reason: Constipation Last Admin: 08/07/18 15:57 Dose: 5 mg Bupropion HCl (Wellbutrin Xl) 450 mg PO DAILY [facility] Last Admin: 08/08/18 08:24 Dose: 450 mg Admin: 08/07/18 08:15 Dose: 450 mg Admin: 08/06/18 13:30 Dose: 450 mg Admin: 08/05/18 09:03 Dose: 450 mg Cholecalciferol (Vitamin D3) 5,000 unit PO DAILY [facility] Last Admin: 08/08/18 08:23 Dose: 5,000 unit Admin: 08/07/18 08:15 Dose: 5,000 unit Admin: 08/06/18 13:30 Dose: 5,000 unit Admin: 08/05/18 09:01 Dose: 5,000 unit Cyclobenzaprine HCl (Flexeril) 10 mg PO TID PRN PRN Reason: Spasms Last Admin: 08/08/18 08:24 Dose: 10 mg Admin: 08/07/18 17:10 Dose: 10 mg Admin: 08/06/18 19:36 Dose: 10 mg Admin: 08/05/18 20:23 Dose: 10 mg Admin: 08/05/18 07:10 Dose: 10 mg Admin: 08/04/18 20:20 Dose: 10 mg Dicyclomine HCl (Bentyl) 20 mg PO QID PRN PRN Reason: Pain Last Admin: 08/06/18 13:33 Dose: 20 mg Admin: 08/05/18 20:23 Dose: 20 mg Divalproex Sodium (Depakote Er) 1,000 mg PO DAILY [facility] Last Admin: 08/08/18 08:24 Dose: 1,000 mg Docusate Sodium (Colace) 100 mg PO BID [facility] Last Admin: 08/08/18 08:23 Dose: 100 mg Admin: 08/07/18 20:11 Dose: 100 mg Admin: 08/07/18 08:15 Dose: 100 mg Admin: 08/06/18 20:06 Dose: Not Given Admin: 08/06/18 13:29 Dose: 100 mg Admin: 08/05/18 20:24 Dose: 100 mg Admin: 08/05/18 09:01 Dose: 100 mg Admin: 08/04/18 20:20 Dose: 100 mg Doxycycline Hyclate (Vibramycin) 100 mg PO DAILY [facility] Last Admin: 08/08/18 08:23 Dose: 100 mg Admin: 08/07/18 08:15 Dose: 100 mg Admin: 08/06/18 13:17 Dose: Admin: 08/05/18 09:03 Dose: 100 mg Fluoxetine HCl (Prozac) 20 mg PO DAILY [facility] Last Admin: 08/08/18 08:24 Dose: 20 mg Admin: 08/07/18 08:45 Dose: 20 mg Admin: 08/06/18 13:30 Dose: 20 mg Admin: 08/05/18 09:01 Dose: 20 mg Hydromorphone HCl (Dilaudid) 0.2 mg IVPUSH Q2H PRN PRN Reason: Pain Last Admin: 08/08/18 00:53 Dose: 0.2 mg Admin: 08/06/18 06:36 Dose: 0.2 mg Admin: 08/06/18 04:32 Dose: 0.2 mg Admin: 08/06/18 02:20 Dose: 0.2 mg Admin: 08/04/18 20:13 Dose: 0.2 mg Magnesium Sulfate 2 gm/ Premix 50 mls @ 25 mls/hr IV ONETIME ONE Stop: 08/08/18 08:49 Last Admin: 08/08/18 08:20 Dose: 25 mls/hr Magnesium Hydroxide (Milk Of Magnesia) 30 ml PO BID PRN PRN Reason: Constipation Magnesium Oxide (Magnesium Oxide) 400 mg PO DAILY [facility] Last Admin: 08/08/18 08:23 Dose: 400 mg Admin: 08/07/18 08:45 Dose: 400 mg Admin: 08/06/18 13:30 Dose: 400 mg Admin: 08/05/18 09:02 Dose: 400 mg Miscellaneous Information (Remove Patch) 1 ea TRDERM DAILY [facility] Last Admin: 08/08/18 08:25 Dose: 1 ea Admin: 08/07/18 12:52 Dose: 1 ea Admin: 08/06/18 13:24 Dose: 1 ea Admin: 08/05/18 09:06 Dose: 1 ea Multivitamins (Thera) 1 each PO DAILY [facility] Last Admin: 08/08/18 08:23 Dose: 1 each Admin: 08/07/18 08:15 Dose: 1 each Admin: 08/06/18 13:30 Dose: 1 each Admin: 08/05/18 09:03 Dose: 1 each Naloxone HCl (Narcan) 0.1 mg IVPUSH Q5M PRN PRN Reason: Oversedation Nicotine (Habitrol) 21 mg TRDERM DAILY [facility] Last Admin: 08/08/18 08:24 Dose: 21 mg Admin: 08/07/18 08:15 Dose: 21 mg Admin: 08/06/18 13:29 Dose: 21 mg Admin: 08/05/18 09:06 Dose: 21 mg Admin: 08/04/18 17:31 Dose: 21 mg Ondansetron HCl (Zofran) 4 mg IVPUSH Q6H PRN PRN Reason: Nausea/Vomiting Last Admin: 08/08/18 00:27 Dose: 4 mg Oxycodone/Acetaminophen (Percocet 325-5 Mg) 1 - 2 tab PO Q4H PRN PRN Reason: Pain Last Admin: 08/08/18 04:42 Dose: 2 tab Admin: 08/08/18 00:28 Dose: 2 tab Admin: 08/07/18 20:08 Dose: 2 tab Admin: 08/07/18 12:55 Dose: 2 tab Admin: 08/07/18 08:15 Dose: 2 tab Admin: 08/07/18 02:42 Dose: 2 tab Admin: 08/06/18 20:14 Dose: 2 tab Admin: 08/06/18 15:59 Dose: 2 tab Admin: 08/06/18 10:39 Dose: 2 tab Admin: 08/05/18 22:38 Dose: 2 tab Admin: 08/05/18 17:53 Dose: 2 tab Admin: 08/05/18 13:34 Dose: 2 tab Admin: 08/05/18 09:03 Dose: 2 tab Admin: 08/05/18 03:57 Dose: 2 tab Admin: 08/04/18 17:31 Dose: 2 tab Pantoprazole Sodium (Protonix) 40 mg PO DAILY@0700 [facility] Last Admin: 03/29/19 06:25 Dose: 40 mg Admin: 08/07/18 07:04 Dose: 40 mg Admin: 08/06/18 13:30 Dose: 40 mg Admin: 08/05/18 07:07 Dose: 40 mg Loratadine/ (Pseudoephedrine) 0 each PO DAILY [facility] Last Admin: 08/08/18 08:25 Dose: Admin: 08/07/18 08:15 Dose: Admin: 08/06/18 13:24 Dose: Admin: 08/05/18 09:06 Dose: Rivaroxaban (Xarelto) 10 mg PO DAILY [facility] Stop: 09/05/18 09:01 Last Admin: 08/08/18 08:23 Dose: 10 mg Admin: 08/07/18 13:01 Dose: 10 mg Senna (Senna) 8.6 mg PO BID PRN PRN Reason: Constipation Last Admin: 08/08/18 00:27 Dose: 8.6 mg - Assessment Assessment (Free Text/Narrative):: POD#4 s/p right TKA and POD#2 s/p right retrograde nail placement for femoral shaft fx - Plan Plan (Free Text/Narrative):: 1. Hgb improved with blood transfusion. 2. d/c to [facility] today for continued rehabilitation. 3. Xarelto 10mg PO daily, frequent mobility, TEDs. 4. Percocet and Flexeril for pain management. The pt's case was discussed with Dr. Patel.
--- NOTE | 2018-08-08 08:40 | PCM.DCSUM1 ---
Discharge Summary - Hospital Course Brief History: Adelaida is a 57 yo female who underwent right TKA with Dr. Patel on 08-04-2018. The procedure was completed under spinal anesthesia with sedation. The pt tolerated the procedure well and was admitted to the Medical- Surgical Unit. On POD#0, the pt fell when walking to the bathroom. Imaging studies were obtained and the pt was dx with femoral shaft fx. The pt underwent IM selam placement at right femur on 08-06-2018. Medical management was provided by the Hospitalist service. The pt's Hospital course was remarkable for acute blood loss anemia and the pt received blood transfusion. The pt's Hgb on POD#3 was 7.1 and on POD#4 was 10.8. On POD#3, Xarelto 10mg PO daily was initiated for VTE prophylaxis. SCDs and TEDs were also ordered. The pt's surgical wounds were dressed and remained clean and dry. The pt participated in P.T. and O.T. and progressed well. After IM rode placement, the pt was allowed to bear 50% weight through RLE. On POD#4, the pt was deemed appropriate to discharge to the care home for continued therapy. Diagnosis: Stroke: No - Discharge Data Discharge Date: 08/08/18 Discharge Disposition: DC/Tfer to SNF 03 Condition: Good - Patient Summary/Data Consults: Consultations 08/04/18 16:23 Consult to Case Management/Welfare Aide [CONS] Routine 08/05/18 08:50 Consult to Physician [CONS] Routine 08/06/18 14:47 Consult to Occupational Therapy [OT Evaluation and Treatment] [CONS] Routine PT Evaluation and Treatment [CONS] Routine - Patient Instructions Diet: Usual Diet as Tolerated Activity: Apply Ice, As Tolerated, Elevate Extremity Activity, Other: 50% weight bearing right lower extremity Driving: Do Not Drive Showering/Bathing: May Shower Wound/Incision Care: Keep Operative Site/Wound Site Clean and Dry, Do NOT Change Dressing Notify Provider of: Fever, Increased Pain, Swelling and Redness, Drainage, Nausea and/or Vomiting Other/Special Instructions: Please get up and moving around EVERY HOUR while awake. Take a short walk every hour while awake. This helps to prevent blood clots. Have help with mobility as needed. Use your walker. You may place 50% of your weight through the surgical limb at this time. Please take the Xarelto blood thinner medication daily as directed. This medication helps to prevent blood clots. Please wear the KANE hose during the day and you may remove them at night. Continue with therapy at [facility]. Please use the pain medication as needed. The medication may cause drowsiness and/or constipation. You could use a stool softener like docusate sodium or Colace 100mg twice daily and/or a laxative like Miralax daily for constipation. Contact your primary care provider for further instructions if you are constipated. Discontinue use of the pain medication as soon as able. Please do not use other medications that may cause drowsiness (other pain medications, anxiety pills, sleeping pills, allergy medications that cause drowsiness) while using the pain medication. Please do not use alcohol while using the pain medication. Use the incentive spirometer often. Please place ice to the surgical site often. Place a towel between your skin and the blue pad. Please elevate the limb to decrease swelling. Keep the dressing in place until follow-up. Please notify the Clinic if the dressing is saturated or rolls. Increase protein intake in your diet as this helps with healing. Please call [phone] with questions or concerns. We discussed your nicotine use. There are great resources availble for smoking cessatoin including the [facility] health unit and [employer]. Your primary care provider is another great resource. You were prescribed nicotine patches on discharge and these will need to be continued with your PCP after discharge. Recommend repeat lab draw saturday08/08/18 to ensure your hemoglobin remains stable. - Discharge Plan *PRESCRIPTION DRUG MONITORING PROGRAM REVIEWED*: No *COPY OF PRESCRIPTION DRUG MONITORING REPORT IN PATIENT TL: No Prescriptions/Med Rec: Acetaminophen/oxyCODONE [Percocet 325-5 MG] 1 - 2 each PO Q4H PRN #60 tab PRN Reason: Pain Nicotine [Habitrol] 21 mg TRDERM DAILY #10 patch Remove Patch 1 ea TRDERM DAILY #10 each Rivaroxaban [Xarelto] 10 mg PO DAILY #30 tablet Home Medications: Home Meds Doxycycline [Vibramycin] 100 mg PO DAILY 12/26/17 [History] Cholecalciferol (Vitamin D3) [Vitamin D3] 5,000 unit PO DAILY 03/28/18 [History] Dicyclomine [Bentyl] 20 mg PO QID PRN 03/28/18 [History] Loratadine/Pseudoephedrine [Claritin-D 12 Hour] 1 tab PO DAILY 03/28/18 [History ] Magnesium 500 mg PO DAILY 03/28/18 [History] Multivitamin [Zoo Chews] 1 tab PO DAILY 03/28/18 [History] Omeprazole 20 mg PO DAILY 03/31/18 [History] FLUoxetine HCl [Prozac] 20 mg PO DAILY 05/28/18 [History] buPROPion [buPROPion XL] 450 mg PO DAILY 05/28/18 [History] Ondansetron [Zofran] 4 mg PO Q8H PRN 08/01/18 [History] Bisacodyl [Dulcolax] 5 mg PO DAILY PRN tablet 08/04/18 [Rx] Cyclobenzaprine [Flexeril] 10 mg PO Q12H PRN #30 tablet 08/04/18 [Rx] Docusate Sodium [Colace] 100 mg PO BID cap 08/04/18 [Rx] Magnesium Hydroxide [Milk of Magnesia] 30 ml PO BID PRN cup 08/04/18 [Rx] Sennosides [Senna] 8.6 mg PO BID PRN tablet 08/04/18 [Rx] Divalproex Sodium [Depakote ER] 1,000 mg PO DAILY 08/05/18 [History] Acetaminophen/oxyCODONE [Percocet 325-5 MG] 1 - 2 each PO Q4H PRN #60 tab [Rx] Nicotine [Habitrol] 21 mg TRDERM DAILY #10 patch 08/08/18 [Rx] Remove Patch 1 ea TRDERM DAILY #10 each 08/08/18 [Rx] Rivaroxaban [Xarelto] 10 mg PO DAILY #30 tablet 08/08/18 [Rx] Oxygen Therapy Mode: Room Air Patient Handouts: Rivaroxaban oral tablets, Steps to Quit Smoking Referrals: Cleo Soto PA [Primary Care Provider] - Jeimy Oliveira PA-C [Physician Trimmer Helper] - 08/20/18 1:15 am (Please follow up with Jeimy Oliveira on 08/20/18 at 115pm.) - Discharge Summary/Plan Comment DC Time >30 min.: No - Patient Data Vitals - Most Recent: Last Vital Signs Temp 98.1 F 08/08/18 04:45 Pulse 78 08/08/18 04:45 Resp 18 08/08/18 04:45 BP 128/68 08/08/18 04:45 Pulse Ox 94 L 08/08/18 04:45 Weight - Most Recent: 177 lb 6.4 oz I&O - Last 24 hours: Intake & Output 08/07/18 08/08/18 08/08/18 22:59 06:59 14:59 Intake Total 1310 500 Output Total 100 1150 Balance 1210 -650 Lab Results - Last 24 hrs: Laboratory Results - last 24 hr 08/07/18 08/08/18 08/08/18 Range/Units 05:52 05:20 05:20 WBC 5.73 (3.98-10.04) K/mm3 RBC 3.93 L (3.98-5.22) M/mm3 Hgb 10.8 L (11.2-15.7) gm/L Hct 33.2 L (34.1-44.9) % MCV 84.5 (79.4-94.8) fl MCH 27.5 (25.6-32.2) pg MCHC 32.5 (32.2-35.5) g/dl RDW Std Deviation 48.2 H (36.4-46.3) fL Plt Count 152 L (182-369) K/mm3 MPV 11.6 (9.4-12.3) fl Neut % (Auto) 55.0 (34.0-71.1) % Lymph % (Auto) 28.4 (19.3-51.7) % [place] % (Auto) 13.1 H (4.7-12.5) % Eos % (Auto) 2.8 (0.7-5.8) Baso % (Auto) 0.2 (0.1-1.2) % Neut # (Auto) 3.15 (1.56-6.13) K/mm3 Lymph # (Auto) 1.63 (1.18-3.74) K/mm3 [place] # (Auto) 0.75 H (0.24-0.36) K/mm3 Eos # (Auto) 0.16 (0.04-0.36) K/mm3 Baso # (Auto) 0.01 (0.01-0.08) K/mm3 Magnesium 1.7 L (1.8-2.4) mg/dl Blood Type B POSITIVE Gel Antibody Screen Negative Crossmatch See Detail Med Orders - Current: Current Medications Bisacodyl (Dulcolax) 5 mg PO DAILY PRN PRN Reason: Constipation Last Admin: 08/07/18 15:57 Dose: 5 mg Bupropion HCl (Wellbutrin Xl) 450 mg PO DAILY [facility] Last Admin: 08/08/18 08:24 Dose: 450 mg Cholecalciferol (Vitamin D3) 5,000 unit PO DAILY [facility] Last Admin: 08/08/18 08:23 Dose: 5,000 unit Cyclobenzaprine HCl (Flexeril) 10 mg PO TID PRN PRN Reason: Spasms Last Admin: 08/08/18 08:24 Dose: 10 mg Dicyclomine HCl (Bentyl) 20 mg PO QID PRN PRN Reason: Pain Last Admin: 08/06/18 13:33 Dose: 20 mg Divalproex Sodium (Depakote Er) 1,000 mg PO DAILY [facility] Last Admin: 08/08/18 08:24 Dose: 1,000 mg Docusate Sodium (Colace) 100 mg PO BID [facility] Last Admin: 08/08/18 08:23 Dose: 100 mg Doxycycline Hyclate (Vibramycin) 100 mg PO DAILY [facility] Last Admin: 08/08/18 08:23 Dose: 100 mg Fluoxetine HCl (Prozac) 20 mg PO DAILY [facility] Last Admin: 08/08/18 08:24 Dose: 20 mg Hydromorphone HCl (Dilaudid) 0.2 mg IVPUSH Q2H PRN PRN Reason: Pain Last Admin: 08/08/18 00:53 Dose: 0.2 mg Magnesium Sulfate 2 gm/ Premix 50 mls @ 25 mls/hr IV ONETIME ONE Stop: 08/08/18 08:49 Last Admin: 08/08/18 08:20 Dose: 25 mls/hr Magnesium Hydroxide (Milk Of Magnesia) 30 ml PO BID PRN PRN Reason: Constipation Magnesium Oxide (Magnesium Oxide) 400 mg PO DAILY [facility] Last Admin: 08/08/18 08:23 Dose: 400 mg Miscellaneous Information (Remove Patch) 1 ea TRDERM DAILY [facility] Last Admin: 08/08/18 08:25 Dose: 1 ea Multivitamins (Thera) 1 each PO DAILY [facility] Last Admin: 08/08/18 08:23 Dose: 1 each Naloxone HCl (Narcan) 0.1 mg IVPUSH Q5M PRN PRN Reason: Oversedation Nicotine (Habitrol) 21 mg TRDERM DAILY [facility] Last Admin: 08/08/18 08:24 Dose: 21 mg Ondansetron HCl (Zofran) 4 mg IVPUSH Q6H PRN PRN Reason: Nausea/Vomiting Last Admin: 08/08/18 00:27 Dose: 4 mg Oxycodone/Acetaminophen (Percocet 325-5 Mg) 1 - 2 tab PO Q4H PRN PRN Reason: Pain Last Admin: 08/08/18 04:42 Dose: 2 tab Pantoprazole Sodium (Protonix) 40 mg PO DAILY@0700 [facility] Last Admin: 08/08/18 06:25 Dose: 40 mg Loratadine/ (Pseudoephedrine) 0 each PO DAILY [facility] Last Admin: 08/08/18 08:25 Dose: Not Given Rivaroxaban (Xarelto) 10 mg PO DAILY [facility] Stop: 09/05/18 09:01 Last Admin: 08/08/18 08:23 Dose: 10 mg Senna (Senna) 8.6 mg PO BID PRN PRN Reason: Constipation Last Admin: 08/08/18 00:27 Dose: 8.6 mg Discontinued Medications Acetaminophen (Tylenol) 975 mg PO ONETIME [facility] Stop: 08/04/18 12:00 Last Admin: 08/04/18 10:27 Dose: 975 mg Bupivacaine HCl (Marcaine 0.25%) Confirm Administered Dose 30 ml .ROUTE .STK- MED ONE Stop: 08/04/18 10:01 Last Admin: 08/04/18 13:27 Dose: 30 ml Bupivacaine HCl (Marcaine 0.25%) Confirm Administered Dose 30 ml .ROUTE .STK- MED ONE Stop: 08/06/18 06:30 Last Admin: 08/06/18 08:31 Dose: 30 ml Cefazolin Sodium (Ancef) Confirm Administered Dose 2 gm .ROUTE .STK-MED ONE Stop: 08/04/18 10:00 Last Admin: 08/04/18 13:22 Dose: 2 gm Cefazolin Sodium (Ancef) Confirm Administered Dose 2 gm .ROUTE .STK-MED ONE Stop: 08/04/18 10:58 Cefazolin Sodium (Ancef) Confirm Administered Dose 2 gm .ROUTE .STK-MED ONE Stop: 08/06/18 06:29 Last Admin: 08/06/18 08:25 Dose: 2 gm Cefazolin Sodium (Ancef) Confirm Administered Dose 2 gm .ROUTE .STK-MED ONE Stop: 08/06/18 06:37 Morphine Sulfate 8 mg/Epinephrine HCl 0.3 mg/Cefuroxime Sodium 750 mg/Ketorolac Tromethamine 30 mg/Sodium Chloride 27.9 ml 0 mg .XX ONETIME ONE Stop: 08/04/18 12:01 Last Admin: 08/04/18 15:29 Dose: Not Given Diphenhydramine HCl (Benadryl) 25 mg IVPUSH Q6H PRN PRN Reason: itching Stop: 08/04/18 16:00 Divalproex Sodium (Depakote) 500 mg PO DAILY ROBERT Last Admin: 08/05/18 09:01 Dose: 500 mg Divalproex Sodium (Depakote Er) 1,000 mg .ROUTE .STK-MED ONE Stop: 08/06/18 15:16 Divalproex Sodium (Depakote Er) 1,000 mg .ROUTE .STK-MED ONE Stop: 08/07/18 09:01 Epinephrine HCl (Adrenalin) Confirm Administered Dose 1 mg .ROUTE .STK-MED ONE Stop: 08/04/18 07:54 Fentanyl (Sublimaze) Confirm Administered Dose 100 mcg .ROUTE .STK-MED ONE Stop: 08/04/18 10:58 Fentanyl (Sublimaze) 50 mcg IVPUSH Q5M PRN PRN Reason: pain Stop: 08/04/18 16:00 Fentanyl (Sublimaze) Confirm Administered Dose 250 mcg .ROUTE .STK-MED ONE Stop: 08/06/18 06:37 Fentanyl (Sublimaze) Confirm Administered Dose 100 mcg .ROUTE .STK-MED ONE Stop: 08/06/18 08:12 Fentanyl (Sublimaze) 50 mcg IVPUSH Q5M PRN PRN Reason: Pain Stop: 08/06/18 12:00 Last Admin: 08/06/18 09:57 Dose: 50 mcg Hydromorphone HCl (Dilaudid) 0.2 mg IVPUSH Q2H PRN PRN Reason: Pain Hydromorphone HCl (Dilaudid) Confirm Administered Dose 0.5 mg .ROUTE .STK-MED ONE Stop: 08/06/18 08:09 Hydromorphone HCl (Dilaudid) Confirm Administered Dose 0.5 mg .ROUTE .STK-MED ONE Stop: 08/06/18 08:10 Hydromorphone HCl (Dilaudid) 0.5 mg IVPUSH Q10M PRN PRN Reason: Pain (severe 7-10) Stop: 08/06/18 12:00 Lactated Ringer's (Ringers, Lactated) 1,000 mls @ 125 mls/hr IV ASDIRECTED [facility] Stop: 08/04/18 23:00 Last Admin: 08/04/18 10:10 Dose: 125 mls/hr Cefazolin Sodium/Dextrose 2 gm (/ Premix) 50 mls @ 100 mls/hr IV Q8H [facility] Stop: 08/05/18 10:29 Last Admin: 08/05/18 11:10 Dose: 100 mls/hr Lactated Ringer's (Ringers, Lactated) Confirm Administered Dose 1,000 mls @ as directed .ROUTE .STK-MED ONE Stop: 08/04/18 13:10 Sodium Chloride (Normal Saline) 500 mls @ 20 drops/min IV .BOLUS ONE Stop: 08/05/18 14:10 Last Admin: 08/05/18 08:55 Dose: 999 drops/min Sodium Chloride (Normal Saline) 1,000 mls @ 100 mls/hr IV ASDIRECTED [facility] Last Admin: 08/05/18 23:26 Dose: 100 mls/hr Cefazolin Sodium/Dextrose 2 gm (/ Premix) 50 mls @ 100 mls/hr IV Q8H [facility] Stop: 08/07/18 07:29 Last Admin: 08/07/18 07:04 Dose: 100 mls/hr Lactated Ringer's (Ringers, Lactated) Confirm Administered Dose 1,000 mls @ as directed .ROUTE .STK-MED ONE Stop: 08/06/18 10:50 Lactated Ringer's (Ringers, Lactated) Confirm Administered Dose 1,000 mls @ as directed .ROUTE .STK-MED ONE Stop: 08/06/18 10:50 Magnesium Sulfate 2 gm/ Premix 50 mls @ 25 mls/hr IV ONETIME ONE Stop: 08/07/18 09:05 Last Admin: 08/07/18 08:23 Dose: 25 mls/hr Sodium Chloride (Normal Saline) Confirm Administered Dose 250 mls @ as directed .ROUTE .STK-MED ONE Stop: 08/07/18 10:49 Last Admin: 08/07/18 12:54 Dose: 100 mls/hr Iodine (Iodine 2% Mild Tincture) Confirm Administered Dose 30 ml .ROUTE .STK- MED ONE Stop: 08/04/18 10:01 Last Admin: 08/04/18 13:20 Dose: 18 ml Iodine (Iodine 2% Mild Tincture) Confirm Administered Dose 30 ml .ROUTE .STK- MED ONE Stop: 08/06/18 06:30 Last Admin: 08/06/18 08:17 Dose: 18 ml Ketorolac Tromethamine (Toradol) 15 mg IVPUSH Q6H PRN PRN Reason: Pain Last Admin: 08/05/18 07:11 Dose: 15 mg Ketorolac Tromethamine (Toradol) 15 mg IVPUSH Q6H PRN PRN Reason: Pain Last Admin: 08/07/18 15:54 Dose: 15 mg Ketorolac Tromethamine (Toradol) 30 mg IVPUSH ONETIME PRN PRN Reason: Pain Stop: 08/06/18 12:00 Lidocaine/Sodium Bicarbonate (Buffered Lidocaine 1% In Ns 8.4%) 0.25 ml IDERM ONETIME PRN PRN Reason: Prior to IV Start Stop: 08/04/18 18:00 Last Admin: 08/04/18 10:10 Dose: 0.25 ml Metoclopramide HCl (Reglan) 10 mg IVPUSH ONETIME PRN PRN Reason: Nausea/Vomiting Stop: 08/04/18 17:00 Midazolam HCl (Versed 1 Mg/Ml) Confirm Administered Dose 2 mg .ROUTE .STK-MED ONE Stop: 08/04/18 10:58 Midazolam HCl (Versed 1 Mg/Ml) Confirm Administered Dose 2 mg .ROUTE .STK-MED ONE Stop: 08/06/18 06:37 Miscellaneous Information (Remove Patch) 0 ea TRDERM ONETIME ONE Stop: 08/07/18 10:31 Last Admin: 08/07/18 12:53 Dose: 1 ea Morphine Sulfate (Morphine) 2 mg IVPUSH Q2H PRN PRN Reason: Breakthrough Pain Non-Formulary Medication (Ondansetron) 4 mg PO Q8H PRN PRN Reason: Nausea/Vomiting Ondansetron HCl (Zofran) 4 mg IVPUSH ONETIME PRN PRN Reason: Nausea/Vomiting Stop: 08/04/18 18:00 Ondansetron HCl (Zofran) Confirm Administered Dose 4 mg .ROUTE .STK-MED ONE Stop: 08/06/18 06:36 Oxycodone HCl (Oxycontin) 10 mg PO ONETIME [facility] Stop: 08/04/18 12:00 Last Admin: 08/04/18 10:27 Dose: 10 mg Divalproex Sodium (500 Mg Tab.Er) 0 each PO DAILY [facility] Last Admin: 08/06/18 13:59 Dose: Not Given Divalproex Sodium (500 Mg Tab.Er Ptom) 0 each PO ONETIME ONE Stop: 08/06/18 15:16 Last Admin: 08/06/18 16:01 Dose: 1 each Divalproex Sodium (500 Mg Tab.Er) 0 each PO DAILY [facility] Last Admin: 08/07/18 08:45 Dose: 2 each Pregabalin (Lyrica) 50 mg PO ONETIME [facility] Stop: 08/04/18 12:00 Last Admin: 08/04/18 10:27 Dose: 50 mg Propofol (Diprivan 20 Ml) Confirm Administered Dose 600 mg .ROUTE .STK-MED ONE Stop: 08/04/18 10:56 Propofol (Diprivan 20 Ml) Confirm Administered Dose 200 mg .ROUTE .STK-MED ONE Stop: 08/06/18 06:37 Rivaroxaban (Xarelto) 10 mg PO DAILY [facility] Rocuronium [place] (Zemuron) Confirm Administered Dose 50 mg .ROUTE .STK-MED ONE Stop: 08/06/18 06:36 Ropivacaine (Naropin 0.5%) Confirm Administered Dose 30 ml .ROUTE .STK-MED ONE Stop: 08/04/18 07:54 Scopolamine (Transderm-Scop) 1.5 mg TRDERM ONETIME [facility] Last Admin: 08/04/18 10:27 Dose: 1.5 mg Sodium Chloride (Saline Flush) 10 ml FLUSH ASDIRECTED PRN PRN Reason: Keep Vein Open Stop: 08/04/18 18:00 Tranexamic Acid (Cyklokapron) Confirm Administered Dose 1,000 mg .ROUTE .STK- MED ONE Stop: 08/04/18 10:00 Last Admin: 08/04/18 13:35 Dose: 1,000 mg Tranexamic Acid (Cyklokapron) Confirm Administered Dose 1,000 mg .ROUTE .STK- MED ONE Stop: 08/06/18 06:29 Last Admin: 08/06/18 08:34 Dose: 1,000 mg Vancomycin HCl (Vancomycin) Confirm Administered Dose 1 gm .ROUTE .STK-MED ONE Stop: 08/04/18 10:00 Last Admin: 08/04/18 13:30 Dose: 1 gm Vancomycin HCl (Vancomycin) Confirm Administered Dose 1 gm .ROUTE .STK-MED ONE Stop: 08/06/18 06:31 Last Admin: 08/06/18 08:33 Dose: 1 gm
[2018-08-08] MEDS ORDERED: Scopolamine 1.5 MG Transdermal Patch TRDERM PRN (08:48)
[2018-08-08] MEDS ORDERED: Divalproex Sodium 500 MG Tab.ER PO SCH (09:00)
--- NOTE | 2018-08-08 09:33 | PCM.OPNOTE ---
- General Post-Op/Procedure Note Date of Surgery/Procedure: 08/04/18 Operative Procedure(s): right total knee arthroplasty Pre Op Diagnosis: right knee osteoarthrosis Post-Op Diagnosis: Same Anesthesia Technique: Local, MAC, Spinal Primary Surgeon: Diogo Patel Anesthesia Provider: Doreen Thomson Furniture Manager: Jeimy Oliveira Furniture Manager: Marcelle Herbert EBKiarra in mLs: 5 Complications: None Condition: Good Free Text/Narrative:: Intake & Output 08/07/18 08/08/18 08/08/18 22:59 06:59 14:59 Intake Total 1310 500 Output Total 100 1150 Balance 1210 -650 size 4/4 9mm 29x9 cemented
--- NOTE | 2018-08-08 10:17 | OR ---
DATE OF OPERATION: 08/04/2018 SURGEON: Diogo Patel MD OPERATION PERFORMED: Right total knee arthroplasty. PREOPERATIVE DIAGNOSIS: Right knee osteoarthrosis. POSTOPERATIVE DIAGNOSIS: Right knee osteoarthrosis. ANESTHESIA: Local MAC with spinal. ANESTHESIA PROVIDER: Doreen Thomson. CUSTOM CLOTHIER: Jeimy Oliveira PA-C and Marcelle Herbert LPN. ESTIMATED BLOOD LOSS: 5 mL. COMPLICATIONS: None. CONDITION: Stable. IMPLANTS: 1. Jono size 4 cemented PS femur. 2. Arthrex size 4 cemented universal tibial base plate. 3. Arthrex size 4, 9 mm PS X3 polyethylene. 4. Dorena size 29 x 9 mm cemented asymmetric patella. DESCRIPTION OF PROCEDURE: The patient was identified in the preop holding area. Proper site was marked and identified by the surgeon. The patient was taken back to the operating theater. After adequate anesthesia, the patient's right lower extremity had a nonsterile tourniquet applied and it was sterilely prepped and draped in the usual sterile fashion. OR time-out was performed. The patient received 2 g IV Ancef. At this time, the right lower extremity was exsanguinated. Tourniquet was insufflated to 300 mmHg. Standard medial parapatellar incision was made. Medial parapatellar arthrotomy was created. Deep fibers of the MCL were raised and anterior fat pad was resected. At this time, attention was turned to the patella. Patella measured 22, it was resected to a 13 for 29 x 9 mm patella. Drill holes were then drilled and found to be in adequate position. The drill was then drilled in the distal femur and the intramedullary distal femoral cutting guide was then placed. An 8 mm was resected off the distal femur and was found to be an adequate resection. Sizing guide was placed. It was found to be a size 4 cemented PS femur that was shown on the implant record at the beginning of this dictation. The drill holes were drilled for the epicondylar axis using [place]ites[place] line and epicondyles as reference. At this time, the 4-in - 1 cutting block was placed. An anterior posterior and anterior and posterior chamfer cuts were then completed. Box cut was completed at this time. Attention was turned to the tibia. The posterior medial lateral retractors were placed. The extramedullary tibial guide was placed. It was placed in the old footprint of the ACL. It was aligned with the center of the ankle and 0 degrees of slope, 9 mm was then resected off the unaffected side. There was found to be an acceptable reduction. At this time, posterior osteophytes were removed along with medial and lateral meniscus. A trial implant was placed with a correct sized tibia that was mentioned at the beginning of the dictation. A Dorena size 4, 9 mm PS X3 polyethylene was then placed. The patient's knee was brought through range of motion. The patella was tracking centrally and was stable to varus and valgus stress. Alignment was found to be roughly at 0 degrees. The tibia was stamped and drilled in proper rotation. Cement was mixed on the back table. The universal tibial base plate was impacted in place. Next, the Jono size 4 cemented PS femur impacted into place and the Dorena size 4, 9 mm PS X3 polyethylene was placed. The patient's knee was brought into full extension. The patella was then cemented in place at this time. One liter dilute Betadine solution was irrigated through the knee along with 3 L of pulse lavage irrigation with Ancef. Periarticular injection was then completed. The patient's knee was brought through a range of motion. Once the cement had time to set up and it was found to be stable to varus valgus stress, the patella was tracking centrally with full range of motion. At this time, a #2 barbed suture was used for closure of the medial parapatellar arthrotomy. Topical tranexamic acid was placed. 2-0 Vicryl was used subcutaneously, Prineo was used for the skin. The patient tolerated the procedure well and was sent to the PACU in stable condition. PAOLO /[id number] CRISTÓBAL
--- NOTE | 2018-08-11 07:33 | PCM.OPNOTE ---
- General Post-Op/Procedure Note Date of Surgery/Procedure: 08/06/18 Operative Procedure(s): intramedullary nailing of right femoral shaft fracture Pre Op Diagnosis: right femoral shaft fracture Post-Op Diagnosis: Same Anesthesia Technique: Local, MAC, Spinal Primary Surgeon: Diogo Patel Anesthesia Provider: Neeraj Stone [employer] Consultant: Jeimy Oliveira EBL in mLs: 250 Complications: None Condition: Good Free Text/Narrative:: [id number]
--- NOTE | 2018-08-11 08:21 | OR ---
DATE OF OPERATION: 08/06/2018 SURGEON: Diogo Patel MD OPERATION PERFORMED: Intramedullary nailing of right femoral shaft fracture. PREOPERATIVE DIAGNOSIS: Right femoral shaft fracture. POSTOPERATIVE DIAGNOSIS: Right femoral shaft fracture. ANESTHESIA TECHNIQUE: Local MAC with spinal. ANESTHESIA PROVIDER: Sudheer Crystal. MEDICAL BILLER: Jeimy Oliveira PA-C. ESTIMATED BLOOD LOSS: 250 mL. COMPLICATIONS: None. CONDITION: Stable. IMPLANTS: [place] 13 x 340 retrograde femoral nail. DESCRIPTION OF PROCEDURE: The patient was identified in the preop holding area. Proper site was marked, identified by surgeon. The patient was taken back to the operating theater, where after adequate anesthesia, the patient's right lower extremity was sterilely prepped and draped in the usual sterile fashion. At this time, a time- out was performed. The patient received 2 g IV Ancef. At this time, the previous total knee incision from the 2 days previous was utilized, and all previous suture was removed. Medial parapatellar arthrotomy was then created again, and I was able to remove just few bits of excess cement in the notch of the previous total knee arthroplasty, and then placed a ball-tipped guidewire down. Once it was to the fracture site, reduction was performed, and it was brought up all the way past the level of the little lesser trochanter. Starting with an 11 reamer, I was able to ream up to a 14 for a 13 x 340 nail. The 13 x 340 nail was then placed, and it was found to have adequate reduction although it did show a little bit of extension at the fracture site, but it was within acceptable secondary to the box that was the position it had to be, and it could not be brought any further into flexion, but it was adequately reduced. At the fracture site, we did set rotation. At this time, 2 distal interlock screws were then placed through the locking arm distally. At this time, then under perfect curyung technique, a proximal static locking screw was then placed as well. It was found to have stability of the fracture site. The level of the nail did go above the lesser trochanter. The nail was found to be seated well inside the notch. At this time, 1 L dilute Betadine solution was irrigated through the knee joint along with 3 L pulse lavage irrigation with Ancef. A #2 barbed suture was used for closure of the medial parapatellar arthrotomy. A barbed suture was used for closure subcutaneously, and Prineo was used for the skin. The patient had a sterile soft dressing applied and was sent to the PACU in stable condition. ANESTHESIA: PAOLO /[id number]
== END 2018-08-08 11:30 | DRG 302 ==
LOC: EDSTATUS 07:30 → JD.MS 09:38
PROVIDERS: ADMIT Orthopaedic Surgery; ATTEND Orthopaedic Surgery
PROC: 0SRC0J9 Replacement of Right Knee Joint with Synthetic Substitute, Cemented, Open Approach (ICD-10-PCS; principal; 2018-08-04)
PROC: 3E0T3BZ Introduction of Anesthetic Agent into Peripheral Nerves and Plexi, Percutaneous Approach (ICD-10-PCS; 2018-08-04)
PROC: 0QS836Z Reposition Right Femoral Shaft with Intramedullary Internal Fixation Device, Percutaneous Approach (ICD-10-PCS; 2018-08-06)
PROC: 30233N1 Transfusion of Nonautologous Red Blood Cells into Peripheral Vein, Percutaneous Approach (ICD-10-PCS; 2018-08-07)
DX: M17.11 Unilateral primary osteoarthritis, right knee (principal); S72.301A Unspecified fracture of shaft of right femur, initial encounter for closed fracture; W18.30XA Fall on same level, unspecified, initial encounter; N17.9 Acute kidney failure, unspecified; D62 Acute posthemorrhagic anemia; E87.5 Hyperkalemia; R11.2 Nausea with vomiting, unspecified; E83.42 Hypomagnesemia; G89.18 Other acute postprocedural pain; M06.9 Rheumatoid arthritis, unspecified; M25.761 Osteophyte, right knee; F32.9 Major depressive disorder, single episode, unspecified; K21.9 Gastro-esophageal reflux disease without esophagitis; K58.9 Irritable bowel syndrome, unspecified; G43.909 Migraine, unspecified, not intractable, without status migrainosus; F41.9 Anxiety disorder, unspecified; H54.7 Unspecified visual loss; F17.210 Nicotine dependence, cigarettes, uncomplicated; J45.909 Unspecified asthma, uncomplicated; Z88.5 Allergy status to narcotic agent; Z88.0 Allergy status to penicillin; Z79.899 Other long term (current) drug therapy; Z90.49 Acquired absence of other specified parts of digestive tract; Z96.652 Presence of left artificial knee joint; Z98.84 Bariatric surgery status; Z90.710 Acquired absence of both cervix and uterus; Z79.01 Long term (current) use of anticoagulants
CPT/HCPCS: 01230; 01402; 36415; 36430; 51702; 64450; 73552-26-RT; 73552-RT; 73560-26-RT; 73560-RT; 76000; 76000-26; 80048; 80053; 83735; 85025; 85027; 86850; 86900; 86901; 86922; 97110-GP; 97116-GP; 97161-GP; 97162-GP; 97165-GO; 97166-GO; 97530-GP; 97535-GO; A9270-GY; C1713; C1776; J0171; J0690; J0697; J1170; J1885; J2250; J2270; J2405; J2704; J2795; J3010; J3370; J3475; J3490; J7040; J7050; J7120; P9016